=== PATIENT | female | born 1960 | race African-American/Black ===

== ENCOUNTER 2016-06-21 09:57 | Emergency (ER) | payer OTHER ==
[~2016-06-21] VITALS: Ht 167.6 cm; Wt 70.9 kg
[~2016-06-21 09:57] MED LIST: ASPCH81X PO; DIVA125T18 PO; MULT-506 PO; OLAN-111 PO; ZNTT/150 PO
[2016-06-21 10:05] VITALS: BP 149/93; PULSE 84; TEMP 36.6; O2SAT 97; Ht 167.6 cm; Wt 70.9 kg
[2016-06-21] MEDS ORDERED: NORCO 5/325MG HOME PACK PO ONE (10:30)
[2016-06-21] MEDS ORDERED: HYDR-5688 PO (10:38)
[2016-06-21] MEDS ORDERED: VALA1TAB31 PO (10:38)
[2016-06-21] MEDS ORDERED: PRED20TA PO (10:38)
--- NOTE | 2016-06-21 10:51 | EMERGENCY ROOM VISIT NOTE ---
History Report prepared by Maggie: Sidney Cavazos Under the Supervision of: Dr. Cole Martinez M.D. First contact with patient: 10:21 Chief Complaint: OTHER COMPLAINT Stated Complaint: SHOULDER,NECK, BACK PAIN History of Present Illness The patient is a 56 year old female who presents to the Emergency Room with complaints of constant right shoulder blade pain beginning four days prior to arrival. She currently rates her discomfort as a 9/10 in severity. The patient associates intermittent nausea, right sided neck pain, and a rash on her right shoulder and right side of neck with today's symptoms. The patient states she noticed the discomfort, when she woke up a few days ago. She notes she is concerned for shingles. The patient states she recently developed a cold. She notes she was on a heavy course of Augmentin and Penicillin a few weeks ago for her throat. The patient denies experiencing shingles in the past. She notes she tried using heat and ice without relief. The patient does not have any other concerns at this time. 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 A total of 10 systems reviewed and were otherwise negative. Past Medical & Surgical Medical Problems: (1) Anxiety (2) Bronchitis (3) Cellulitis (4) Cellulitis (5) Chest pain (6) GERD (gastroesophageal reflux disease) (7) Migraines (8) Paranoia (9) Pneumonia (10) Rash (11) Rash Family History No pertinent family history Social History Smoking Status: Never Smoker Alcohol Use: none Drug Use: none Marital Status: single Housing Status: lives alone Occupation Status: unemployed Current/Historical Medications Scheduled Aspirin (Aspirin Chewable), 81 MG PO DAILY Divalproex Sodium (Depakote), 125 MG PO DAILY Multivitamin (Multivitamin), 1 TAB PO DAILY Olanzapine (Zyprexa), 5 MG PO DAILY Prednisone (Prednisone), 2 TAB PO DAILY Ranitidine (Zantac), 150 MG PO DAILY Valacyclovir Hcl (Valtrex), 1 TAB PO TID Scheduled PRN Hydrocodone/Acetaminophen 5MG/325MG (Plain 5MG/325MG), 1-2 TABLET PO Q4H PRN for Pain Allergies Coded Allergies: Latex1 -Allergic Contact Dermititis (Verified Allergy, Mild, 05/22/16) Oxycodone (Verified Allergy, Mild, RASH, 05/22/16) Physical Exam Vital Signs Date Time Temp Pulse Resp B/P Pulse Ox O2 Delivery O2 Flow Rate FiO2 06/21/16 10:05 36.6 84 16 149/93 97 Room Air Physical Exam GENERAL: Patient is in no acute distress. HEENT: No acute trauma, normocephalic atraumatic, mucous membranes moist, no nasal congestion, no scleral icterus. NECK: No stridor, no adenopathy, no meningismus, trachea is midline. LUNGS: Clear to auscultation bilaterally, no wheeze, no rhonchi, breath sounds equal. HEART: Without murmurs gallops or rubs, regular rate and rhythm. ABDOMEN: Soft, nontender, bowel sounds positive, no hernias, no peritonitis. EXTREMITIES: No cyanosis or edema, full range of motion of all the joints without pain or difficulty, no signs for acute trauma. NEUROLOGIC: Oriented x 3, no acute motor or sensory deficits, no focal weakness. SKIN: Patient has a faint, slightly reddened, somewhat patchy vesicular appearing rash to the right scapular area, consistent with herpes zoster. Medical Decision & Procedures Medications Administered Medications (Trade) Dose Ordered Sig/Theron Route Start Time Stop Time Status Last Admin Dose Admin Valacyclovir HCl (Valtrex Tab) 1,000 mg NOW ONCE PO 06/21/16 10:30 06/21/16 10:32 DC 06/21/16 10:37 1,000 MG Prednisone (PredniSONE TAB) 40 mg NOW STAT PO 06/21/16 10:29 06/21/16 10:32 DC 06/21/16 10:38 40 MG Acetaminophen/ Hydrocodone Bitart (Plain 5/325mg Home Pack) 1 homepack UD ONCE PO 06/21/16 10:30 06/21/16 10:32 DC 06/21/16 10:37 1 HOMEPACK ED Course 1024: The patient was evaluated in room B2. A complete history and physical exam was performed. 1029: Ordered Prednisone 40 mg PO. 1030: Ordered Acetaminophen/ Hydrocodone Bitart 1 homepack PO, Valtrex Tab 1, 000 mg PO. 1040: Reevaluated the patient. Discussed results and discharge instructions: She verbalized understanding and agreement. The patient is ready for discharge. Medical Decision The differential diagnoses include but are not limited to: nerve impingement, heres zoster, disc disease, muscle spasm, cellulitis. The patient presents with right scapular pain. On exam, there is a herpes zoster rash noted in the area where she has discomfort. No cellulitis. Her lungs are clear, she was not toxic or febrile. The patient received oral prednisone and oral Valtrex. She is being discharged on these meds plus Plain for pain. She was encouraged to follow with her doctors office. [place] Drug Monitoring Program Search Results: patient reviewed within database, no issues identified Impression Primary Impression: Herpes zoster Scribe Attestation The scribe's documentation has been prepared under my direction and personally reviewed by me in its entirety. I confirm that the note above accurately reflects all work, treatment, procedures, and medical decision making performed by me. Departure Information Dispostion Home / Self-Care Prescriptions Prednisone (Prednisone) 20 Mg Tab 2 TAB PO DAILY for 5 Days, #10 TAB Prov: Cole Martinez M.D. 06/21/16 Hydrocodone/Acetaminophen 5MG/325MG (Plain 5MG/325MG) Tab 1-2 TABLET PO Q4H Y for Pain, #15 TAB Prov: Cole Martinez M.D. 06/21/16 Valacyclovir Hcl (VALTREX) 1 Gm Tab 1 TAB PO TID for 7 Days, #21 TAB Prov: Cole Martinez M.D. 06/21/16 Referrals Sumit Karimi M.D. (PCP) Forms HOME CARE DOCUMENTATION FORM, IMPORTANT VISIT INFORMATION Patient Instructions My [facility] [employer] Keyboards, Shingles Herpes Zoster Additional Instructions valtrex 3x per day for 1 week norco 1-2 tab every 4 hours for severe pain prednisone as directed follow with siena sung return if worsening
== END 2016-06-21 10:30 | disposition home or self-care (01) ==
LOC: C.EDB 09:59
DX: B02.9 Zoster without complications (principal); K21.9 Gastro-esophageal reflux disease without esophagitis; Z79.82 Long term (current) use of aspirin

== ENCOUNTER → 2016-06-23 | Outpatient (CLI) | payer OTHER ==
[~2016-06-23] MED LIST changes: +ASPI81TA28 PO; +ATOR-24 PO; +AZITTAB PO; +BENZ100C84 PO; +CYAN100020 PO; +FEXO1TAB45 PO; +FLUT0.15 NAE; +HYDR-5688 PO; +IBUP-1050 PO; +MICO2CRE61 TOP; +NXM/40 PO; +PRED20TA PO; +RIZA10TA18 PO; +TRMCR130WC TOP; +VALA1TAB31 PO; +VNTHFA/IN INH
--- NOTE | 2016-06-23 14:12 | DIAGNOSTIC IMAGING REPORT ---
CHEST 2 VIEWS ROUTINE CLINICAL HISTORY: Acute bronchospasm. COMPARISON STUDY: Chest radiograph May 22, 2016. FINDINGS: Lung volumes are normal. No pneumothorax or pleural effusion is present. Linear left lower lung opacity is suggestive of atelectasis. There is no consolidation. Cardiomediastinal silhouette is stable. There is no evidence of pulmonary edema. IMPRESSION: No acute cardiopulmonary findings. No change in appearance of the chest. Electronically signed by: Db Lopez M.D. 06/23/2016 2:10 PM Dictated Date/Time: 06/23/2016 2:10 PM
== END | disposition home or self-care (01) ==
LOC: C.RADBC 13:07
PROVIDERS: ATTEND Internal Medicine
DX: J98.01 Acute bronchospasm (principal)

== ENCOUNTER → 2016-07-02 | Outpatient (CLI) | payer OTHER ==
[~2016-07-02] MED LIST changes: +OPTIRAY 320 IV PRN; -PRED20TA PO; -VALA1TAB31 PO
--- NOTE | 2016-07-02 14:29 | DIAGNOSTIC IMAGING REPORT ---
CT SCAN OF THE CHEST WITH IV CONTRAST CLINICAL HISTORY: Cough. COMPARISON STUDY: Chest x-ray dated 06/23/2016. Chest CT scans dated 03/28/2015 and 06/21/2014. TECHNIQUE: Following the IV administration of 92 cc of Optiray 320, CT scan of the thorax was performed from the thoracic inlet to the upper abdomen. Images are reviewed in the axial, sagittal, and coronal planes. IV contrast was administered without complication. CT DOSE: 299.15 mGycm FINDINGS: Thyroid: Imaged portions of the thyroid gland are normal in size and attenuation. Thoracic aorta: There is mild atherosclerotic calcification of the thoracic aorta, which is normal in caliber and demonstrates standard 3-vessel arch anatomy. No dissection is seen. Pulmonary vasculature: The pulmonary trunk is normal in caliber. There are no filling defects identified in the central pulmonary vessels to indicate pulmonary embolus. Note that this examination was not protocoled for evaluation of the pulmonary arteries. Heart: The heart is normal in size and configuration, and without pericardial effusion. Lungs and pleural spaces: Mild emphysematous change is suspected. The trachea and central airways are clear. No airspace consolidation or pleural effusion is identified. Mild scarring is seen in the right middle lobe and lingula. A calcification containing nodule in the right lower lobe seen on axial image #190 and a 3 mm left lower lobe pulmonary nodule on image #224 are unchanged from 06/21/2014 and of doubtful significance. There is minimal mucous plugging versus secretions within the dependent lower lobe airways. Mild diffuse peribronchial thickening is observed. Mediastinum: There is no mediastinal lymphadenopathy. Sol: Clear. Axillae: There is no axillary lymphadenopathy. Upper abdomen: Partially visualized upper abdominal viscera is within normal limits. Skeletal structures: The skeletal structures are osteopenic. No lytic or blastic bony lesions are seen. IMPRESSION: 1. Suspect mild emphysema. 2. No lobar consolidation or pleural effusion is identified. 3. There is mild diffuse peribronchial thickening as well as secretions/mucous plugging present within the dependent lower lobe airways. Correlate clinically for evidence of reactive airway disease. 4. There is no mediastinal or hilar lymphadenopathy. 5. Additional findings as above. Electronically signed by: Cole Samuels M.D. 07/02/2016 2:28 PM Dictated Date/Time: 07/02/2016 2:21 PM
== END | disposition home or self-care (01) ==
LOC: C.CTS 13:47
PROVIDERS: ATTEND Internal Medicine
DX: R05 Cough (principal)

== ENCOUNTER → 2016-07-28 | Outpatient (CLI) | payer OTHER ==
[~2016-07-28] MED LIST changes: -OPTIRAY 320 IV PRN
--- NOTE | 2016-07-29 07:40 | DIAGNOSTIC IMAGING REPORT ---
HEAD CT NONCONTRAST CT DOSE: 537.48 mGy.cm HISTORY: Mental status change. Dizziness. [id number] Syncope TECHNIQUE: Multiaxial CT images of the head were performed without the use of intravenous contrast. Comparison: 10/18/2014 Findings: The paranasal sinuses and mastoid air cells are clear. The calvarium and skull base are intact. The ventricles and sulci are within normal limits. There is no mass, hematoma, midline shift, or acute infarct. Impression: No acute intracranial abnormality. Electronically signed by: Jose Rebollar M.D. 07/28/2016 11:05 AM Dictated Date/Time: 07/28/2016 11:04 AM
== END | disposition home or self-care (01) ==
LOC: C.CTS 10:46
PROVIDERS: ATTEND Nurse Practitioner Adult Health
DX: R55 Syncope and collapse (principal); R42 Dizziness and giddiness

== ENCOUNTER → 2016-08-04 | Outpatient (CLI) | payer OTHER ==
--- NOTE | 2016-08-04 16:46 | ECHOCARDIOGRAM REPORT ---
*NOTICE TO RECEIVING [employer] This information is strictly Confidential and protected under [place] law. [place] law prohibits you from making any further disclosure of this information unless further disclosure is expressly permitted by the written consent of the person to whom it pertains or is authorized by law. A general authorization for the release of medical or other information is not sufficient for this purpose. Hospital accepts no responsibility if the information is made available to any other person, INCLUDING THE PATIENT. Interpretation Summary * Name: FREDA BANKS Study Date: 08/04/2016 01:00 PM BP: 149/93 mmHg * Patient Location: [facility] HR: 76 * : 1960 (M/d/yyyy) Gender: Female Height: 66 in * Age: 56 yrs Ethnicity: AA Weight: 155 lb * Ordering Physician: Rosie Skaggs * Referring Physician: Rosie Skaggs * Performed By: Taylor Roland RCS * * Reason For Study: ABNORMAL EKG * BSA: 1.8 m2 * -- Conclusions -- * The left ventricle is normal in size. * There is normal left ventricular wall thickness. * Left ventricular systolic function is normal. * Ejection Fraction = 50-55%. * The left ventricular wall motion is normal. * No significant valvular disease. Procedure Details * A complete two-dimensional transthoracic echocardiogram was performed (2D, M-mode, Doppler and color flow Doppler). Left Ventricle * The left ventricle is normal in size. * There is normal left ventricular wall thickness. * Left ventricular systolic function is normal. * Ejection Fraction = 50-55%. * The left ventricular wall motion is normal. Right Ventricle * The right ventricle is normal in size and function. * There is normal right ventricular wall thickness. * The right ventricular systolic function is normal. Atria * The left atrial size is normal. * Right atrial size is normal. * The interatrial septum is intact with no evidence for an atrial septal defect. Mitral Valve * The mitral valve is normal in structure and function. * There is no mitral valve stenosis. * There is no mitral regurgitation noted. Tricuspid Valve * The tricuspid valve is normal in structure and function. * There is trace tricuspid regurgitation. * Right ventricular systolic pressure is normal. Aortic Valve * The aortic valve is normal in structure and function. * No aortic regurgitation is present. Pulmonic Valve * The pulmonic valve is normal in structure and function. * There is no pulmonic valvular regurgitation. Great Vessels * The aortic root is normal size. * No obvious dissection could be visualized. * The pulmonary artery is normal size. Pericardium/Pleural * There is no pericardial effusion. MMode 2D Measurements and Calculations IVSd 0.86 cm IVSs 1.5 cm LVIDd 4.2 cm LVIDs 3.2 cm LVPWd 0.99 cm LVPWs 1.1 cm IVS/LVPW 0.87 FS 25.1 % EDV(Teich) 79.0 ml ESV(Teich) 39.5 ml EF(Teich) 50.0 % EDV(cubed) 74.5 ml ESV(cubed) 31.3 ml EF(cubed) 58.0 % % IVS thick 70.3 % % LVPW thick 12.2 % LV mass(C)d 123.6 grams LV mass(C)dI 68.9 grams/m\S\2 LV mass(C)s 130.8 grams LV mass(C)sI 72.9 grams/m\S\2 SV(Teich) 39.5 ml SI(Teich) 22.0 ml/m\S\2 SV(cubed) 43.2 ml SI(cubed) 24.1 ml/m\S\2 Ao root diam 3.5 cm Ao root area 9.8 cm\S\2 ACS 1.8 cm LA dimension 2.9 cm LA/Ao 0.82 LVOT diam 2.0 cm LVOT area 3.0 cm\S\2 LVAd ap4 26.7 cm\S\2 LVLd ap4 7.2 cm EDV(MOD-sp4) 81.1 ml EDV(sp4-el) 83.5 ml LVAs ap4 15.0 cm\S\2 LVLs ap4 5.7 cm ESV(MOD-sp4) 33.1 ml ESV(sp4-el) 33.4 ml EF(MOD-sp4) 59.2 % EF(sp4-el) 60.0 % LVAd ap2 20.9 cm\S\2 LVLd ap2 7.2 cm EDV(MOD-sp2) 49.1 ml EDV(sp2-el) 51.2 ml LVAs ap2 12.2 cm\S\2 LVLs ap2 6.1 cm ESV(MOD-sp2) 20.4 ml ESV(sp2-el) 20.8 ml EF(MOD-sp2) 58.4 % EF(sp2-el) 59.4 % LVLd %diff -0.20 % EDV(MOD-bp) 63.1 ml LVLs %diff 6.5 % ESV(MOD-bp) 26.7 ml EF(MOD-bp) 57.7 % SV(MOD-sp4) 48.0 ml SI(MOD-sp4) 26.7 ml/m\S\2 SV(MOD-sp2) 28.6 ml SI(MOD-sp2) 16.0 ml/m\S\2 SV(MOD-bp) 36.4 ml SI(MOD-bp) 20.3 ml/m\S\2 SV(sp4-el) 50.1 ml SI(sp4-el) 27.9 ml/m\S\2 SV(sp2-el) 30.4 ml SI(sp2-el) 16.9 ml/m\S\2 Doppler Measurements and Calculations MV E max delmer 75.0 cm/sec MV A max delmer 52.8 cm/sec MV E/A 1.4 MV P1/2t max delmer 88.9 cm/sec MV P1/2t 70.5 msec MVA(P1/2t) 3.1 cm\S\2 MV dec slope 369.1 cm/sec\S\2 MV dec time 0.24 sec Ao V2 max 111.3 cm/sec Ao max PG 5.0 mmHg Ao max PG (full) 2.5 mmHg JOSE(V,A) 2.1 cm\S\2 JOSE(V,D) 2.1 cm\S\2 LV V1 max PG 2.4 mmHg LV V1 max 77.6 cm/sec PA V2 max 84.7 cm/sec PA max PG 2.9 mmHg TR max delmer 222.5 cm/sec
== END | disposition home or self-care (01) ==
LOC: C.CPL 11:43
PROVIDERS: ATTEND Internal Medicine
DX: R00.2 Palpitations (principal)

== ENCOUNTER → 2016-08-07 | Outpatient (CLI) | payer OTHER ==
--- NOTE | 2016-08-10 13:46 | MAMMOGRAPHY REPORT ---
BILATERAL DIGITAL DIAGNOSTIC MAMMOGRAM TOMOSYNTHESIS WITH CAD AND TARGETED LEFT ULTRASOUND: 08/07/2016 CLINICAL HISTORY: The patient reports an area of thickening and pain in the left breast for 2 weeks, which has somewhat improved. TECHNIQUE: Breast tomosynthesis in addition to standard 2D mammography was performed. Current study was also evaluated with a Computer Aided Detection (CAD) system. Bilateral CC and MLO 2-D and bouchra synthesis images were obtained. COMPARISON: Comparison is made to exams dated: 09/16/2015 ultrasound, 09/16/2015 mammogram, 02/05/2010 mammogram, and 03/31/2005 mammogram - [facility]. BREAST COMPOSITION: The tissue of both breasts is heterogeneously dense, which may obscure small ma sses. FINDINGS: A triangle marker benítez the site of the thickening/pain in the left breast at 9:00. No s uspicious masses or other suspicious mammographic abnormalities are noted in the region. The remain caryn of both breasts are stable compared to prior exams, without suspicious masses, calcifications, o r areas of architectural distortion noted. Targeted ultrasound was performed of the area of thickening and pain pointed out by the patient, in the left 9:00 region, centered around 6 cm from the nipple. Sonographically normal tissue is seen i n this region, without evidence of a mass or other suspicious sonographic abnormalities. IMPRESSION: ACR BI-RADS CATEGORY 1: NEGATIVE, TARGETED ULTRASOUND ACR BI-RADS CATEGORY 1: NEGATIVE No suspicious mammographic or sonographic abnormality at the site of left medial breast thickening/p ain pointed out by the patient. There is no mammographic or targeted sonographic evidence of malign jose carlos. Recommend clinical follow-up, and recommend routine bilateral screening mammograms in one yea r. The patient has been verbally notified of the results. Approximately 10% of breast cancers are not detected with mammography. A negative mammographic repor t should not delay biopsy if a clinically suggestive mass is present. Lashonda Lo M.D. /:08/07/2016 10:28:21 Business Process Specialist: Daniela PRABHAKAR(R)(M), [facility] letter sent: Normal 1/2 BI-RADS Code: ACR BI-RADS Category 1: Negative Ultrasound BI-RADS: ACR BI-RADS Category 1: Negative
== END | disposition home or self-care (01) ==
LOC: C.MAMM 09:55
PROVIDERS: ATTEND Internal Medicine
DX: N63 Unspecified lump in breast (principal)

== ENCOUNTER → 2016-08-20 | Outpatient (CLI) | payer OTHER ==
[2016-08-20 16:32] LABS: BASO % 0.9 %; BASO ABS # 0.06 K/uL (0-0.2); COMPLETE YES; EOS % 4.2 %; HEMATOCRIT 42.4 % (37-47); IG% 0.1 %; LYMPH ABS # 2.89 K/uL (1.2-3.4); MEAN CELL VOLUME 84.1 fL (80-100); MEAN CORPUSCULAR HEMOGLOBIN 28.2 pg (25-34); MEAN CORPUSCULAR HGB CONC 33.5 g/dl (32-36); MEAN PLATELET VOLUME 10.8 fL (7.4-10.4); NEUT % 43.8 %; PLATELET COUNT 268 K/uL (130-400); RED BLOOD COUNT 5.04 M/uL (4.2-5.4); WHITE BLOOD COUNT 6.72 K/uL (4.8-10.8)
[2016-08-20 16:56] LABS: AST/SGOT 22 U/L (15-37); BLOOD UREA NITROGEN 16 mg/dl (7-18); BUN/CREATININE RATIO 14.6 (10-20); CALCIUM 9.3 mg/dl (8.5-10.1); CARBON DIOXIDE 29 mmol/L (21-32); CHLORIDE 106 mmol/L (98-107); GLUCOSE 86 mg/dl (70-99); POTASSIUM 3.8 mmol/L (3.5-5.1); SODIUM 141 mmol/L (136-145)
[2016-08-20 16:59] LABS: ALB/GLOB RATIO 1.2 (0.9-2); ALKALINE PHOSPHATASE 55 U/L (45-117); ALT/SGPT 28 U/L (12-78)
[2016-08-24 11:26] LABS: CHLAMYDIA TRACH RNA*** NOT DETECTED (NOT DETECTED); GC (NEIS GONORRHOEAE)RNA** NOT DETECTED (NOT DETECTED); HSV TYPE 1 DNA Not Detected (Not Detected); HSV TYPE 1&2 DNA SOURCE Serum; HSV TYPE 2 DNA Not Detected (Not Detected)
== END | disposition home or self-care (01) ==
LOC: C.LAB1850 15:25
PROVIDERS: ATTEND Internal Medicine
DX: Z20.2 Contact with and (suspected) exposure to infections with a predominantly sexual mode of transmission (principal); R42 Dizziness and giddiness; R55 Syncope and collapse

== ENCOUNTER 2016-09-08 18:29 | Emergency (ER) | payer OTHER ==
[~2016-09-08] VITALS: Ht 167.6 cm; Wt 71.9 kg
[~2016-09-08 18:29] MED LIST changes: -ASPI81TA28 PO; -ATOR-24 PO; -AZITTAB PO; -BENZ100C84 PO; -CYAN100020 PO; -FEXO1TAB45 PO; -FLUT0.15 NAE; -IBUP-1050 PO; -MICO2CRE61 TOP; -NXM/40 PO; -RIZA10TA18 PO; -TRMCR130WC TOP; -VNTHFA/IN INH
[2016-09-08 18:31] VITALS: TEMP 37.5; Ht 167.6 cm; Wt 71.9 kg
[2016-09-08] MEDS ORDERED: IBUP-1050 PO (19:10)
[2016-09-08] MEDS ORDERED: ATOR-24 PO (19:10)
--- NOTE | 2016-09-08 19:29 | DIAGNOSTIC IMAGING REPORT ---
CERVICAL SPINE 5 VIEWS HISTORY: Trauma fall, neck pain COMPARISON: None. FINDINGS: The cervical spine is visualized from C1 through the superior endplate of T1. There is no fracture. No subluxation. Moderate degenerative disc change from C5 through C7. No acute compression deformity. Prevertebral soft tissues and the atlantodens interval are intact. IMPRESSION: No fracture or subluxation within the cervical spine. Moderate degenerative change Electronically signed by: Jose Rebollar M.D. 09/08/2016 7:28 PM Dictated Date/Time: 09/08/2016 7:27 PM
--- NOTE | 2016-09-08 19:50 | EMERGENCY ROOM VISIT NOTE ---
ED Visit Note First contact with patient: 18:47 CHIEF COMPLAINT: Neck pain, fall HISTORY OF PRESENT ILLNESS: This 56-year-old female patient presents to the emergency department ambulatory for evaluation after a fall. The patient states that she tripped and fell down 3 stairs. She states that she hit the right side of her face off of the banister. She also reports pain in the right side of the neck, the right elbow and the left lower leg. She denies any loss of consciousness. She denies headache, nausea, dizziness, blurred vision or slurred speech. She rates her current discomfort a 5/10. She has not taken any medication for pain. She denies any radiation of the neck pain into either arm. She denies any numbness or tingling. She denies any chest or abdominal pain. REVIEW OF SYSTEMS: A 6 system review of systems was completed with positives and pertinent negatives listed in the HPI. ALLERGIES: Latex, oxycodone MEDICATIONS: See med list PMH: No significant past medical history. SOCIAL HISTORY: Patient lives locally with family. Nonsmoker. PHYSICAL EXAM: VITALS: Vitals are noted on the nurse's note and reviewed by myself. Vital signs stable. GENERAL: This is a 56-year-old female, in no acute distress, nondiaphoretic, well-developed well-nourished. SKIN: Capillary reflex less than 2 seconds. HEENT: Normocephalic. PERRLA. EOMI. Nares patent. Mucous membranes moist. Neck is supple without nuchal rigidity. Cervical spine is not tender to palpation. The patient has tenderness of the right cervical paraspinal muscles. Full range of motion of the neck. MUSCULOSKELETAL: There is mild tenderness of the right olecranon process. Full range of motion of the right elbow, shoulder and wrist. There is a small amount of bruising and tenderness of the left anterior lower leg. Full range of motion of bilateral upper and lower extremities. Strength 5/5 throughout. NEURO: Patient was alert and oriented to person place and time. Normal sensation to light and sharp touch. No focal neurologic deficits. RADIOGRAPHIC FINDINGS: CERVICAL SPINE 5 VIEWS HISTORY: Trauma fall, neck pain COMPARISON: None. FINDINGS: The cervical spine is visualized from C1 through the superior endplate of T1. There is no fracture. No subluxation. Moderate degenerative disc change from C5 through C7. No acute compression deformity. Prevertebral soft tissues and the atlantodens interval are intact. IMPRESSION: No fracture or subluxation within the cervical spine. Moderate degenerative change EMERGENCY DEPARTMENT COURSE: I examined the patient. There is no bony tenderness over the cervical spine. Patient has contusions of the right elbow and left lower leg. The patient initially refused any imaging, then was agreeable to imaging of her cervical spine. She did refuse imaging of the right elbow and left lower leg, as she did not feel that these injuries were significant. Patient was given ice packs for her comfort. C-spine x-rays were read by radiology and were negative for any acute findings. Conservative measures were discussed with the patient. She was instructed to continue ibuprofen at home. She will follow-up with her primary care provider as needed. She verbalized understanding of my assessment and treatment plan and was discharged home in good condition. DIAGNOSIS: Neck pain, fall Problem List Medical Problems: (1) Anxiety Status: Chronic (2) Bronchitis Status: Resolved (3) Cellulitis Status: Resolved (4) Cellulitis Status: Resolved (5) Chest pain Status: Resolved (6) GERD (gastroesophageal reflux disease) Status: Chronic (7) Migraines Status: Chronic (8) Paranoia Status: Chronic (9) Pneumonia Status: Resolved (10) Rash Status: Resolved (11) Rash Status: Resolved Current/Historical Medications Scheduled Aspirin (Aspirin Chewable), 81 MG PO DAILY Atorvastatin (Lipitor), 40 MG PO DAILY Divalproex Sodium (Depakote), 125 MG PO DAILY Ibuprofen (Advil), 200-600 MG PO Q4H Multivitamin (Multivitamin), 1 TAB PO DAILY Olanzapine (Zyprexa), 5 MG PO DAILY Ranitidine (Zantac), 150 MG PO DAILY Allergies Coded Allergies: Latex1 -Allergic Contact Dermititis (Verified Allergy, Mild, 09/08/16) Oxycodone (Verified Allergy, Mild, RASH, 09/08/16) Vital Signs Date Time Temp Pulse Resp B/P Pulse Ox O2 Delivery O2 Flow Rate FiO2 09/08/16 19:53 98 18 105/77 99 09/08/16 18:31 37.5 106 18 129/76 96 Room Air Departure Information Impression Primary Impression: Fall Additional Impression: Contusion of multiple sites Dispostion Home / Self-Care Condition GOOD Referrals No Doctor, Assigned (PCP) Patient Instructions My [facility] Additional Instructions For pain control, you can use the following [id number] medicines (if >12 yo): - Regular strength (325mg/tab) Tylenol (acetaminophen) 2 tabs every 4-6 hours as needed. Do not exceed 12 tablets in a 24 hour period. Avoid taking more than 4 grams (4000 mg) of Tylenol per day. This includes any other sources of acetaminophen you may take on a regular basis. - Regular strength (200 mg/tab) Advil (ibuprofen) 1-2 tabs every 4-6 hours as needed. Do not exceed a dose of 3200 mg per day. Apply ice to areas of pain. Return to the emergency department with worsening pain, numbness, weakness or any other new/concerning symptoms. Problem Qualifiers Primary Impression: Fall Encounter type: initial encounter Qualified Codes: W19.XXXA - Unspecified fall, initial encounter
[2016-09-08 19:53] VITALS: BP 105/77; PULSE 98; O2SAT 99
== END 2016-09-08 19:54 | disposition home or self-care (01) ==
LOC: C.EDB 18:30 → C.EDD 19:54
DX: T14.8 Other injury of unspecified body region (principal); W10.9XXA Fall (on) (from) unspecified stairs and steps, initial encounter; M54.2 Cervicalgia; F41.9 Anxiety disorder, unspecified; K21.9 Gastro-esophageal reflux disease without esophagitis; F22 Delusional disorders; Z87.01 Personal history of pneumonia (recurrent); Z79.82 Long term (current) use of aspirin; Z79.899 Other long term (current) drug therapy

== ENCOUNTER 2016-09-09 17:49 | Emergency (ER) | payer OTHER ==
[~2016-09-09] VITALS: Ht 168.9 cm; Wt 71.6 kg
[~2016-09-09 17:49] MED LIST changes: +ATOR-24 PO; -HYDR-5688 PO; +IBUP-1050 PO
[2016-09-09 17:58] VITALS: PULSE 97; TEMP 37; O2SAT 95; Ht 168.9 cm; Wt 71.6 kg
--- NOTE | 2016-09-09 19:55 | DIAGNOSTIC IMAGING REPORT ---
LEFT SHOULDER MIN 2 VIEWS ROUTINE CLINICAL HISTORY: Left shoulder pain s/p fall COMPARISON: Left shoulder radiographs August 20, 2009. FINDINGS: Alignment of the left shoulder is anatomic. There is no acute fracture. Mild arthritis of the left acromioclavicular joint is present. IMPRESSION: No acute fracture or dislocation of the left shoulder. Electronically signed by: Db Lopez M.D. 09/09/2016 7:53 PM Dictated Date/Time: 09/09/2016 7:52 PM
--- NOTE | 2016-09-09 19:56 | DIAGNOSTIC IMAGING REPORT ---
CHEST ONE VIEW PORTABLE CLINICAL HISTORY: Left clavicle pain COMPARISON STUDY: Chest CT July 02, 2016. FINDINGS: No clavicular fracture is identified on AP exam. Linear left lower lung opacity favors atelectasis. There is no consolidation. Cardiac size is normal. There is no pneumothorax or pleural effusion. IMPRESSION: No acute cardiopulmonary findings. Electronically signed by: Db Lopez M.D. 09/09/2016 7:55 PM Dictated Date/Time: 09/09/2016 7:54 PM
--- NOTE | 2016-09-09 19:57 | DIAGNOSTIC IMAGING REPORT ---
RIGHT ELBOW MIN 3 VIEWS ROUTINE CLINICAL HISTORY: Right elbow pain following fall. COMPARISON: None FINDINGS: Alignment of the right elbow is anatomic. There is no acute fracture or joint effusion. Mild soft tissue swelling overlying the olecranon is noted. IMPRESSION: 1. No acute fracture or joint effusion of the right elbow. 2. Mild soft tissue swelling overlying the olecranon. Electronically signed by: Db Lopez M.D. 09/09/2016 7:56 PM Dictated Date/Time: 09/09/2016 7:55 PM
--- NOTE | 2016-09-09 19:58 | DIAGNOSTIC IMAGING REPORT ---
PELVIS/BILATERAL HIP 2 VIEWS CLINICAL HISTORY: Hip pain s/p fall COMPARISON STUDY: Hip radiographs January 15, 2014. FINDINGS: The sacroiliac joints and symphysis pubis are intact. There is no acute fracture within the pelvis or the hips. There is mild arthritis of the hips. IMPRESSION: No acute fracture within the pelvis or hips. Electronically signed by: Db Lopez M.D. 09/09/2016 7:57 PM Dictated Date/Time: 09/09/2016 7:56 PM
--- NOTE | 2016-09-09 19:59 | DIAGNOSTIC IMAGING REPORT ---
LEFT TIBIA/FIBULA 2 VIEWS ROUTINE CLINICAL HISTORY: Left tibia and fibula pain following fall. COMPARISON: Left knee radiograph October 24, 2014. FINDINGS: No acute fracture of the left tibia or fibula is identified. Alignment of the left knee and ankle appears anatomic. IMPRESSION: No acute fracture of the left tibia or fibula. Electronically signed by: Db Lopez M.D. 09/09/2016 7:58 PM Dictated Date/Time: 09/09/2016 7:57 PM
--- NOTE | 2016-09-09 20:33 | EMERGENCY ROOM VISIT NOTE ---
History First contact with patient: 18:14 Chief Complaint: ELBOW PAIN/INJURY Stated Complaint: PAIN SWELLING AND TINGLING IN ELBOW History of Present Illness The patient is a 56 year old female who presents to the Emergency Room via private vehicle with complaints of "pain swelling and tingling in elbow". The patient states that she was seen and evaluated here yesterday for a fall that she had sustained. She states that when she woke up today she felt some stiffness in the neck, pointing to the left superior trapezius region and was concerned. She also states that the right elbow is now swollen. She states that yesterday she fell on the steps, and when she grabbed upon the handrail she fell forward striking her head off of the wall. There was not loss of consciousness. She notes that at this time she is experiencing pain in the left superior trapezius region, left shoulder/clavicle region, right elbow, bilateral hips, left anterior dunn. She denies any chest pain, shortness of breath, fevers, chills, abdominal pain. The patient proceeds to state that people are so mean, and the females in triage treat her with disrespect. She states that her life is in danger, and points to a bruise on her right medial arm, stating that she believes someone is breaking into her house in the night and harming her. She also states that "something caused me to take Advil". She also believes that people are poisoning her food. She states that she lives in an apartment building where people are very mean to her. She feels that people are racist. Review of Systems A complete 10-point Review of Systems was discussed with the patient, with pertinent positives and negatives listed in the History of Present Illness. All remaining Review of Systems questions can be considered negative unless otherwise specified. Past Medical/Surgical History Medical Problems: (1) Anxiety (2) Bronchitis (3) Cellulitis (4) Cellulitis (5) Chest pain (6) GERD (gastroesophageal reflux disease) (7) Migraines (8) Paranoia (9) Pneumonia (10) Rash (11) Rash Family History No pertinent family history Social History Smoking Status: Current Every Day Smoker Alcohol Use: none Drug Use: none Marital Status: single Housing Status: lives alone Occupation Status: unemployed Current/Historical Medications Scheduled Aspirin (Aspirin Chewable), 81 MG PO DAILY Atorvastatin (Lipitor), 40 MG PO DAILY Divalproex Sodium (Depakote), 125 MG PO DAILY Ibuprofen (Advil), 200-600 MG PO Q4H Multivitamin (Multivitamin), 1 TAB PO DAILY Olanzapine (Zyprexa), 5 MG PO DAILY Ranitidine (Zantac), 150 MG PO DAILY Allergies Coded Allergies: Latex1 -Allergic Contact Dermititis (Verified Allergy, Mild, 09/08/16) Oxycodone (Verified Allergy, Mild, RASH, 09/08/16) Physical Exam Vital Signs Date Time Temp Pulse Resp B/P Pulse Ox O2 Delivery O2 Flow Rate FiO2 09/09/16 17:58 37.0 97 20 95 Room Air Physical Exam VITAL SIGNS - Vital signs and nursing notes were reviewed. Patient is afebrile , non-tachycardic and is saturating well on room air 95%. GENERAL -56-year-old female appearing her stated age who is in no acute distress. Communicates well with provider and answers questions appropriately. SKIN - Without rashes. There is evidence of edema and erythema overlying the olecranon of the right upper extremity. There is also evidence of bruising of the left anterior dunn. Skin is intact. HEAD - NC/AT. EYES - PERRL with EOMI bilaterally. Sclera anicteric. Palpebral conjunctiva pink and moist with no injection noted. EARS - No deformities of external structures noted on gross examination bilaterally. No pain elicited with palpation of the tragus bilaterally. External auditory canals without discharge or otorrhea. Tympanic membranes pearly jesus without retraction or bulging. No fluid or purulent material visualized behind the TM. Handle of malleus, umbo, cone of light, pars tensa/ flaccid all easily visualized. NOSE - Midline and without cyanosis. No epistaxis or purulent drainage noted. Septum midline without deviation or septal hematoma noted. MOUTH/OROPHARYNX - Without perioral cyanosis. Buccal mucosa pink and moist and without leukoplakia. Tongue midline with equal elevation of palate bilaterally. No tonsillar hypertrophy, erythema, or exudates noted. Fair dentition noted. NECK - Neck with FROM. Supple to palpation. No lymphadenopathy noted. No nuchal rigidity. LUNGS - Chest wall symmetric without accessory muscle use, intercostals retractions, or central cyanosis. Normal vesicular breath sounds CTA B/L. No wheezes, rales, or rhonchi appreciated. CARDIAC - RRR with S1/S2. No murmur, rubs, or gallops appreciated. ABDOMEN - Abdominal contour without pulsations or visible masses. No evidence of trauma. EXTREMITIES - No clubbing or peripheral cyanosis. No pretibial edema present. +5 /5 strength noted in UE/LE bilaterally. Pt. is neurovascularly intact in the extremities. NEUROLOGIC - Cranial nerves II through XII grossly intact. Sensory intact to light touch throughout. PSYCH - Pt is very pleasant and interacts well with examiner. Medical Decision & Procedures ER Provider Diagnostic Interpretation: [~ rep ct add3]] LEFT SHOULDER MIN 2 VIEWS ROUTINE CLINICAL HISTORY: Left shoulder pain s/p fall COMPARISON: Left shoulder radiographs August 20, 2009. FINDINGS: Alignment of the left shoulder is anatomic. There is no acute fracture. Mild arthritis of the left acromioclavicular joint is present. IMPRESSION: No acute fracture or dislocation of the left shoulder. Electronically signed by: Db Lopez M.D. 09/09/2016 7:53 PM Dictated Date/Time: 09/09/2016 7:52 PM CHEST ONE VIEW PORTABLE CLINICAL HISTORY: Left clavicle pain COMPARISON STUDY: Chest CT July 02, 2016. FINDINGS: No clavicular fracture is identified on AP exam. Linear left lower lung opacity favors atelectasis. There is no consolidation. Cardiac size is normal. There is no pneumothorax or pleural effusion. IMPRESSION: No acute cardiopulmonary findings. Electronically signed by: Db Lopez M.D. 09/09/2016 7:55 PM Dictated Date/Time: 09/09/2016 7:54 PM RIGHT ELBOW MIN 3 VIEWS ROUTINE CLINICAL HISTORY: Right elbow pain following fall. COMPARISON: None FINDINGS: Alignment of the right elbow is anatomic. There is no acute fracture or joint effusion. Mild soft tissue swelling overlying the olecranon is noted. IMPRESSION: 1. No acute fracture or joint effusion of the right elbow. 2. Mild soft tissue swelling overlying the olecranon. Electronically signed by: Db Lopez M.D. 09/09/2016 7:56 PM Dictated Date/Time: 09/09/2016 7:55 PM PELVIS/BILATERAL HIP 2 VIEWS CLINICAL HISTORY: Hip pain s/p fall COMPARISON STUDY: Hip radiographs January 15, 2014. FINDINGS: The sacroiliac joints and symphysis pubis are intact. There is no acute fracture within the pelvis or the hips. There is mild arthritis of the hips. IMPRESSION: No acute fracture within the pelvis or hips. Electronically signed by: Db Lopez M.D. 09/09/2016 7:57 PM Dictated Date/Time: 09/09/2016 7:56 PM LEFT TIBIA/FIBULA 2 VIEWS ROUTINE CLINICAL HISTORY: Left tibia and fibula pain following fall. COMPARISON: Left knee radiograph October 24, 2014. FINDINGS: No acute fracture of the left tibia or fibula is identified. Alignment of the left knee and ankle appears anatomic. IMPRESSION: No acute fracture of the left tibia or fibula. Electronically signed by: Db Lopez M.D. 09/09/2016 7:58 PM Dictated Date/Time: 09/09/2016 7:57 PM Laboratory Results Medical Decision Patient was seen and evaluated as above. After obtaining a thorough history and physical examination radiographs were obtained of the affected regions. The patient was neurovascularly intact. No focal neurologic deficits. I was concerned as the patient began stating what appeared to be thoughts of paranoia. She stated that "something cause me to take Advil" and also stated that she believes someone is out to get her and harm her and that someone breaks in her apartment when she is sleeping and harms her The patient was initially evaluated in room D1, however nursing notes provide that the patient was initially assigned to D2 however did not seem happy with this and wanted to be farther away from the nurse's station. I discussed the case with my attending regarding whether or not a psychiatric evaluation should be performed based upon the elicited history. I felt that the patient would benefit from a mental health evaluation given that this is her second trip to the emergency department for the same fall, and there was no evidence of paranoia on previous visit. I do believe the patient would benefit from this at this time. Because the patient had noted that she had a poor experience in triage, and wanted to be far away from the nurse's station and I felt that a mental health evaluation would be appropriate and best performed in room A5 which would be more private and not close to the nurses station. She was moved to upon her return from x- ray. I went to reevaluate the patient and she noted that she was scared, as she was moved to a new room and because there was a electronic security technician in the room. I politely excuse the electronic security technician from the room, and reassured the patient that we are not trying to harm her anyway we are just trying to help her. I stated that she had initially wanted to be away from the nurse's station, and had a poor experience in triage therefore the room she was in what help ensure her privacy. I also order labs at that point because the patient has stated the something made her take Advil therefore I felt that laboratory work would be beneficial in this case to rule out any potential harm as well as to evaluate her paranoid thoughts. The patient had denied suicidal and homicidal ideations however every time I would talk with her she wanted the door to be completely shut. She then states that it's a breech of her privacy if the door is not shut. I certainly made sure that the door was shut during our conversation. The patient then stated that she would like to leave, and was on the phone with an individual. I informed her that I by no means and keeping her here against her will and she may leave at any point, but at this point I'm not able to provide her x-ray results as the radiologist has not read them yet. She then states she would not like blood work, which I do believe is fair as the patient does certainly have a right to declined this. The blood work was canceled. The x-rays were discussed the patient. I then had my attending also accompany me in discussion with the patient. A thorough discussion was had with the patient regarding her injury sustained today, as well as why she was moved to another room. The patient then began to cry stating that where she lives she is scared. She states that she loves her apartment but does not like her neighbors. We asked her if she felt safe returning home and she stated yes. She then began to reach out her arms and wanted to hug both of this. I apologized to her for any miscommunication or misunderstanding. She at this time appears to be stable for discharge and is not a harm to self or others. She does appear to have good outpatient follow-up. She was instructed that she is to return with any new/concerning symptoms and is welcome here any time. She was educated upon findings of today's visit, was educated upon worrisome symptoms in which to return, had questions were discharge and was discharged home in good condition. It is appear that the patient is experiencing a good deal paranoia at this time however I do not believe that she requires a 302 or inpatient admission. I believe she is able follow up with her psychiatric personnel in the outpatient setting. In the evaluation and treatment of this patient the following differential diagnoses were entertained: Bone fracture, muscle strain, clavicle fracture, shoulder fracture, shoulder dislocation, hip fracture, contusion multiple sites , paranoia, among others. Impression Primary Impression: Contusion of multiple sites Additional Impression: Fall Departure Information Dispostion Home / Self-Care Condition GOOD Referrals Sandie Anaya CRNP (PCP) Patient Instructions My [facility] Additional Instructions You were seen in the emergency department for injuries you sustained from your fall. Your x-rays do not show any broken bones. It is recommended you follow-up with your family doctor regarding today's visit. Please call them first thing tomorrow morning to schedule follow-up. Please feel free to return to the emergency department with any new/concerning symptoms. Thank you for your time. Problem Qualifiers
--- NOTE | 2016-09-09 20:35 | EMERGENCY ROOM VISIT NOTE ---
ED Visit Note First contact with patient: 18:14 The patient was seen and examined with Yazan Maher PA-C. I agree with the history, physical and findings. Please see the note for disposition and details.
== END 2016-09-09 20:57 | disposition home or self-care (01) ==
LOC: C.EDB 17:50 → C.EDA 20:57
DX: T14.8 Other injury of unspecified body region (principal); W10.9XXD Fall (on) (from) unspecified stairs and steps, subsequent encounter; F41.9 Anxiety disorder, unspecified; K21.9 Gastro-esophageal reflux disease without esophagitis; Z87.01 Personal history of pneumonia (recurrent); F22 Delusional disorders; F17.210 Nicotine dependence, cigarettes, uncomplicated; Z79.82 Long term (current) use of aspirin; Z79.899 Other long term (current) drug therapy

== ENCOUNTER → 2016-11-17 | Outpatient (CLI) | payer OTHER ==
[~2016-11-17] MED LIST changes: +ASPI81TA28 PO; +AZITTAB PO; +BENZ100C84 PO; +CYAN100020 PO; +FAMO20TA9 PO; +FEXO1TAB45 PO; +FLUT0.15 NAE; +MICO2CRE61 TOP; +NXM/40 PO; +ONDA4TAB46 PO; +RIZA10TA18 PO; +TRMCR130WC TOP; +VNTHFA/IN INH
--- NOTE | 2016-11-17 08:19 | DIAGNOSTIC IMAGING REPORT ---
ABDOMINAL ULTRASOUND COMPLETE HISTORY: Pain. Nausea. R10.9 Abdominal painR11.0 [id number]. COMPARISON: None. FINDINGS: Pancreas: The pancreas demonstrates a normal echotexture. Liver: Unremarkable. Gallbladder: No gallbladder wall thickening. No gallstones. CBD: 3 mm Kidneys: No hydronephrosis. Spleen: Normal in size. Aorta: Normal in caliber. IVC: Patent. IMPRESSION: Negative study Electronically signed by: Jose Rebollar M.D. 11/17/2016 8:18 AM Dictated Date/Time: 11/17/2016 8:15 AM
== END | disposition home or self-care (01) ==
LOC: C.ULTR 07:08
PROVIDERS: ATTEND Physician Assistant Medical
DX: R10.9 Unspecified abdominal pain (principal); R11.0 Nausea

== ENCOUNTER → 2016-11-30 | Outpatient (CLI) | payer OTHER ==
[2016-11-30 14:52] LABS: URINE APPEARANCE CLEAR (CLEAR); URINE BILIRUBIN NEG (NEG); URINE COLOR YELLOW; URINE EPITHELIAL CELL AUTO 20-30 /lpf (0-5); URINE NITRITE NEG (NEG); URINE PH 6.5 (4.5-7.5); URINE SPECIFIC GRAVITY 1.006 (1.000-1.030); UROBILINOGEN NEG (NEG); ZZUR CULT IF INDIC CLEAN CATCH YES
[2016-11-30 14:53] LABS: MANUAL MICROSCOPIC REQUIRED? NO; REVIEW REQ? NO
[2016-11-30 15:14] LABS: BLOOD UREA NITROGEN 9 mg/dl (7-18); GLUCOSE 87 mg/dl (70-99)
[2016-11-30 15:15] LABS: ALT/SGPT 26 U/L (12-78); BUN/CREATININE RATIO 8.8 (10-20); CALCIUM 9.5 mg/dl (8.5-10.1); CARBON DIOXIDE 30 mmol/L (21-32); CHLORIDE 105 mmol/L (98-107); CHOLESTEROL 252 mg/dl (0-200); SODIUM 141 mmol/L (136-145)
[2016-11-30 15:17] LABS: ALB/GLOB RATIO 1.1 (0.9-2); ALKALINE PHOSPHATASE 62 U/L (45-117); AST/SGOT 19 U/L (15-37); CHOLESTEROL/HDL RATIO 4.1; HDL CHOLESTEROL 61 mg/dl; LDL CHOLESTEROL CALCULATED 157 mg/dl; TRIGLYCERIDES 169 mg/dl (0-150); VERY LOW DENSITY LIPOPROT CALC 34 mg/dl
== END | disposition home or self-care (01) ==
LOC: C.LAB1850 13:57
PROVIDERS: ATTEND Nurse Practitioner Adult Health
DX: E78.5 Hyperlipidemia, unspecified (principal); Z20.2 Contact with and (suspected) exposure to infections with a predominantly sexual mode of transmission; R10.9 Unspecified abdominal pain; R30.0 Dysuria; M54.9 Dorsalgia, unspecified

== ENCOUNTER → 2016-12-30 | Day surgery (SDC) | payer OTHER ==
[~2016-12-30] VITALS: Ht 167.6 cm; Wt 70.0 kg
[~2016-12-30] MED LIST changes: -FAMO20TA9 PO; +FENTANYL CITRATE INJ 50 MCG/1 ML 2 ML VIAL ONE; +LIDOCAINE HCL 2% 2 ML VIAL (20MG/ML) ONE; +MIDAZOLAM HCL 1 MG/ML 2ML VIAL ONE; -ONDA4TAB46 PO; +PHENYLEPHRINE 100MCG/ML 5ML SYR ONE; +PROPOFOL IV EMULSION 10 MG/ML 20 ML VIAL IV ONE
[2016-12-30 11:44] VITALS: Ht 167.6 cm; Wt 70.0 kg
[2016-12-30 12:09] VITALS: TEMP 36.9
--- NOTE | 2016-12-30 12:43 | Endo History and Physical ---
History & Physical Date of Service: Dec 30, 2016. Chief Complaint: REFLUX AND NAUSEA Referring Physician: DR. CABRALES History of Present Illness 56 yo female who presents for EGD secondary to GERD and nausea. Past Surgical History Hx Cardiac Surgery: No Hx Internal Defibrillator: No Hx Pacemaker: No Hx Abdominal Surgery: No Hx of Implantable Prosthesis: No Hx Post-Op Nausea and Vomiting: No Hx Cancer Surgery: No Hx Thoracic Surgery: No Hx Orthopedic: No Hx Urinary Tract Surgery: No Family History Polyp Social History Smoking Status: Former Smoker Hx Substance Use: No Hx Alcohol Use: No Allergies Coded Allergies: Latex1 -Allergic Contact Dermititis (Verified Allergy, Mild, 12/30/16) Oxycodone (Verified Allergy, Mild, RASH, 12/30/16) Current Medications Reported Home Medications Medications Dose Route/Sig Max Daily Dose Days Date Category Lipitor (Atorvastatin Calcium) 40 Mg Tab 40 Mg PO DAILY 09/08/16 Reported Advil (Ibuprofen) 200 Mg Tab 200-600 Mg PO Q4H 09/08/16 Reported Depakote (Divalproex Sodium) 125 Mg Tab 125 Mg PO DAILY 05/22/16 Reported Zyprexa (Olanzapine) 5 Mg Tab 5 Mg PO DAILY 05/22/16 Reported Zantac (Ranitidine HCl) 150 Mg Tab 150 Mg PO DAILY 02/02/16 Reported Multivitamin (Multivitamins) Tab 1 Tab PO DAILY 02/02/16 Reported Aspirin Chewable (Aspirin) 81 Mg Chew 81 Mg PO DAILY 10/01/14 Reported Vital Signs Weight (Kilograms): 70 Height (Feet): 5 Height (Inches): 6 Date Time Temp Pulse Resp B/P (MAP) Pulse Ox O2 Delivery O2 Flow Rate FiO2 12/30/16 12:09 36.9 75 20 100/65 (77) 99 Room Air Physical Exam General Appearance: WD/WN, no apparent distress Respiratory/Chest: Auscultation: breath sounds normal Cardiovascular: Heart Auscultation: RRR Abdomen: Bowel Sounds: normal Inspection & Palpation: soft, non-distended, no tenderness, guarding & rebound Assessment and Plan Assessment: 56 yo female who presents for EGD secondary to GERD and nausea. Plan: Proceed with EGD.
--- NOTE | 2016-12-30 12:59 | Discharge Instructions ---
Endoscopy Patient Instructions Date / Procedure(s) Performed Dec 30, 2016. EGD Allergy Information Coded Allergies: Latex1 -Allergic Contact Dermititis (Verified Allergy, Mild, 12/30/16) Oxycodone (Verified Allergy, Mild, RASH, 12/30/16) Discharge Date / Findings Dec 30, 2016. Gastritis s/p biopsies Medication Instructions OK to resume all medications today as prescribed Reported Home Medications Medications Dose Route/Sig Max Daily Dose Days Date Category Lipitor (Atorvastatin Calcium) 40 Mg Tab 40 Mg PO DAILY 09/08/16 Reported Advil (Ibuprofen) 200 Mg Tab 200-600 Mg PO Q4H 09/08/16 Reported Depakote (Divalproex Sodium) 125 Mg Tab 125 Mg PO DAILY 05/22/16 Reported Zyprexa (Olanzapine) 5 Mg Tab 5 Mg PO DAILY 05/22/16 Reported Zantac (Ranitidine HCl) 150 Mg Tab 150 Mg PO DAILY 02/02/16 Reported Multivitamin (Multivitamins) Tab 1 Tab PO DAILY 02/02/16 Reported Aspirin Chewable (Aspirin) 81 Mg Chew 81 Mg PO DAILY 10/01/14 Reported Provider Instructions Activity Restrictions - No exercising or heavy lifting for 24 hours. - Do not drink alcohol the day of the procedure. - Do not drive a car or operate machinery until the day after the procedure. - Do not make any important decisions or sign important papers in 24 hours after the procedure. Following Day: - Return to full activity which may include returning to work/school. Diet Start your diet with liquids and light foods (jello, soup, juice, toast). Then eat your usual diet if not nauseated. Treatment For Common After Affects For mild abdominal pain, bloating, or excessive gas: - Rest - Eat lightly - Lie on right side Follow-Up Information Follow-up with DR. CABRALES as scheduled Anesthesia Information What You Should Know You have had a procedure that required some medicine to reduce anxiety and discomfort. This treatment is called moderate sedation. After receiving the treatment, you may be sleepy, but you will be able to breathe on your own. The effects of the treatment may last for several hours. Follow these instructions along with Activity/Diet recommendations noted above: * Do NOT do anything where dizziness or clumsiness would be dangerous. * Rest quietly at home today, then you can be up and about tomorrow. * Have a responsible person stay with you the rest of today. * You may have had an I.V. today. If so, you may take the dressing off later today. Recommendations Call your doctor if: * Trouble breathing * Continuous vomiting for more than 24 hours * Temperature above 101 degrees * Severe abdominal pain or bloating * Pain not relieved by pain medicine ordered * There is increased drainage or redness from any incision * A large amount of rectal bleeding greater than 2-3 tablespoons. (If you had a polyp/s removed or have hemorrhoids, a small amount of blood - from the rectum is to be expected.) * You have any unanswered questions or concerns. IN THE EVENT OF A SERIOUS EMERGENCY, GO TO THE NEAREST EMERGENCY ROOM Your discharge instructions were prepared by provider Marco Kincaid. Patient Instructions Signature Page Janie Velez Patient (or Guardian) Signature/Date: I have read and understand the instructions given to me by my caregivers. Caregiver/RN/Doctor Signature/Date: The above-named patient and/or guardian has received patient instructions on this date. + Original Patient Signature Page (only) stays with chart. Please make copy for patient.
--- NOTE | 2016-12-30 13:11 | GI REPORT ---
Procedure Date: 12/30/2016 12:33 PM Procedure: Upper GI endoscopy Indications: Gastro-esophageal reflux disease, Nausea Medicines: Monitored Anesthesia Care Complications: No immediate complications. Estimated Blood Loss: Estimated blood loss: none. Procedure: Pre-Anesthesia Assessment: - Prior to the procedure, a History and Physical was performed, and patient medications and allergies were reviewed. The patient's tolerance of previous anesthesia was also reviewed. The risks and benefits of the procedure and the sedation options and risks were discussed with the patient. All questions were answered, and informed consent was obtained. Prior Anticoagulants: The patient has taken aspirin, last dose was 1 day prior to procedure. ASA Grade Assessment: II - A patient with mild systemic disease. After reviewing the risks and benefits, the patient was deemed in satisfactory condition to undergo the procedure. After obtaining informed consent, the endoscope was passed under direct vision. Throughout the procedure, the patient's blood pressure, pulse, and oxygen saturations were monitored continuously. The scope was introduced through the mouth, and advanced to the second part of duodenum. The upper GI endoscopy was accomplished without difficulty. The patient tolerated the procedure well. Findings: The examined esophagus was normal. Localized mild inflammation characterized by erythema was found in the gastric antrum. Biopsies were taken with a cold forceps for histology. The examined duodenum was normal. Impression: - Normal esophagus. - Gastritis. Biopsied. - Normal examined duodenum. Recommendation: - Resume previous diet. - Continue present medications. - Await pathology results. - Return to primary care physician as previously scheduled. Marco Kincaid, DO 12/30/2016 1:11:36 PM This report has been signed electronically. Note Initiated On: 12/30/2016 12:33 PM I attest to the content of the Intraoperative Record and orders documented therein, exceptions below
--- NOTE | 2016-12-30 13:14 | Anesthesiology Progress Note ---
Anesthesia Post Op Note Date & Time Dec 30, 2016 at 13:14 Vital Signs Pain Intensity: 0 Vital Signs Past 12 Hours Date Time Temp Pulse Resp B/P (MAP) Pulse Ox O2 Delivery O2 Flow Rate FiO2 12/30/16 12:55 66 16 124/72 (89) 96 Room Air 12/30/16 12:09 36.9 75 20 100/65 (77) 99 Room Air Notes Mental Status: alert / awake / arousable, participated in evaluation Pt Amnestic to Procedure: Yes Nausea / Vomiting: adequately controlled Pain: adequately controlled Airway Patency, RR, SpO2: stable & adequate BP & HR: stable & adequate Hydration State: stable & adequate Anesthetic Complications: no major complications apparent
[2016-12-30 13:25] VITALS: BP 121/79; PULSE 73; O2SAT 97
== END | disposition home or self-care (01) ==
LOC: C.GI 11:23
PROVIDERS: ATTEND Internal Medicine
DX: K21.9 Gastro-esophageal reflux disease without esophagitis (principal); R11.0 Nausea; K29.70 Gastritis, unspecified, without bleeding; Z87.891 Personal history of nicotine dependence; Z79.82 Long term (current) use of aspirin

== ENCOUNTER 2017-02-14 13:34 | Emergency (ER) | payer OTHER ==
[~2017-02-14] VITALS: Ht 167.6 cm; Wt 70.9 kg
[~2017-02-14 13:34] MED LIST changes: -ASPI81TA28 PO; -AZITTAB PO; -BENZ100C84 PO; -CYAN100020 PO; -FENTANYL CITRATE INJ 50 MCG/1 ML 2 ML VIAL ONE; -FEXO1TAB45 PO; -FLUT0.15 NAE; -LIDOCAINE HCL 2% 2 ML VIAL (20MG/ML) ONE; -MICO2CRE61 TOP; -MIDAZOLAM HCL 1 MG/ML 2ML VIAL ONE; -NXM/40 PO; -PHENYLEPHRINE 100MCG/ML 5ML SYR ONE; -PROPOFOL IV EMULSION 10 MG/ML 20 ML VIAL IV ONE; -RIZA10TA18 PO; -TRMCR130WC TOP; -VNTHFA/IN INH
[2017-02-14 13:47] VITALS: TEMP 36.6; Ht 167.6 cm; Wt 70.9 kg
[2017-02-14] MEDS ORDERED: PROPARACAINE HCL 0.5% OP SOLN 15 ML BTL OP STA (14:23)
[2017-02-14] MEDS ORDERED: IBUPROFEN 600 MG TAB PO STA (15:26)
[2017-02-14] MEDS ORDERED: ERYTHROMYCIN OP OINT 5 MG/GM 3.5 GM TUBE OP ONE (15:30)
[2017-02-14 15:36] VITALS: BP 114/81; PULSE 81; O2SAT 97
--- NOTE | 2017-02-14 17:15 | EMERGENCY ROOM VISIT NOTE ---
ED Visit Note First contact with patient: 14:13 CHIEF COMPLAINT: Left eye pain HISTORY OF PRESENT ILLNESS: This 56-year-old -Luxembourger female patient presents to ER for evaluation of left eye pain that developed today after being at work. She was reaching for a bottle of bleach at the [email or web address] and states the cap must have been loose. The bottle spilled, and she got bleach on her clothing and some splashed on her face. She believes there is some in her left eye. He tried flushing her eye at work with tap water and also used Visine drops. She reports here for further care. Incident occurred around 10 AM. Since then there has been a constant moderate pain and irritation, redness and tearing in the eye. No involvement of the other eye. There is a mild blurring of vision at times and light bothers the eye. The vision has not been decreased over all. No headache, nausea, or vomiting. Pain is 6/10. She does wear glasses, but did not have them on at the time of injury. REVIEW OF SYSTEM: HEENT: No dizziness, visual problems, hearing loss, or tinnitus. There is no difficulty swallowing and no oral lesions are present. LYMPH: No adenopathy. PULMONARY: No cough, shortness of breath, sputum production or hemoptysis. CARDIOVASCULAR: No chest pain, palpitations, shortness of breath or peripheral edema. GASTROINTESTINAL: No diarrhea, constipation, nausea, vomiting, or abdominal pain. GENITOURINARY: No dysuria, frequency, urgency or nocturia. NEUROLOGIC: No weakness, muscle tenderness, epilepsy or history of neurological problems. MUSCULOSKELETAL: No history of joint tenderness/swelling. No history of arthritis or arthralgias. SKIN: No rashes or lesions. PSYCHIATRIC: Positive history of anxiety and paranoia. ENDOCRINE: No history of diabetes, thyroid disorders, or abnormal hair growth. PMH: Supplemental sheet was reviewed. Previous surgeries: None Medical history: Significant for anxiety and paranoia, Current medications: Reviewed and filed in patient's chart Allergies: Latex and oxycodone Family history: Noncontributory. SOCIAL HISTORY: Patient lives at home. Employed at the [email or web address]. No tobacco use, no EtOH use. PHYSICAL EXAM: Vital Signs: Afebrile. Reviewed and filed in patient's chart. GENERAL: Well-developed, well-nourished, middle-aged -Luxembourger female, in obvious discomfort. No acute distress. She is sitting on the bed. Alert and oriented. She smells like bleach. Skin: Warm and dry with good turgor. No rashes or lesions. No ecchymosis or erythema. The patient is not diaphoretic. No abrasions. No evidence of periorbital cellulitis. HEENT: Normocephalic, atraumatic. The pupils are round, equal, and react to light. EOMs are full. There is discharge of clear tears from the left eye which is also injected. Slit lamp examination was performed after Alcaine anesthesia and staining with fluorescein. No foreign body was seen embedded in the cornea. She has punctate stippling present diffusely over the cornea. It is shallow. I suspect this is from the tap water irrigation. She does have large areas of fluorescein uptake over the inferior sclera. This is in the area that the patient previously complained of discomfort. The cornea was clear and no hyphema was seen. Anterior chamber is without sediment. No other abnormalities were noted. DIAGNOSIS: Chemical exposure left eye (bleach) DISCHARGE INSTRUCTIONS AND TREATMENT: Patient was educated regarding today's findings. Conservative care measures were discussed. Left eye was irrigated copiously with 750 ML of normal sterile saline using a Fady lens. She was prescribed erythromycin ointment, to be used in the eye every 8 hours x5 days. The eye should recover in about 24 to 36 hours. I did speak with Dr. Ashraf regarding this patient's care. He recommended the irrigation. He also recommended the erythromycin ointment and reexamination. Follow-up with Dr. Ashraf or Dr. Stack tomorrow for reexamination. Start Tylenol and ibuprofen every 6 hours if needed for the pain. First dose of ibuprofen was given in the ED. Corneal abrasion handout was provided. Sunglasses and dark rooms will improve comfort. Return to the ED for any other concerns. Problem List Medical Problems: (1) Anxiety Status: Chronic (2) Bronchitis Status: Resolved (3) Cellulitis Status: Resolved (4) Cellulitis Status: Resolved (5) Chest pain Status: Resolved (6) GERD (gastroesophageal reflux disease) Status: Chronic (7) Migraines Status: Chronic (8) Paranoia Status: Chronic (9) Pneumonia Status: Resolved (10) Rash Status: Resolved (11) Rash Status: Resolved Current/Historical Medications Scheduled Aspirin (Aspirin Chewable), 81 MG PO DAILY Atorvastatin (Lipitor), 40 MG PO DAILY Divalproex Sodium (Depakote), 125 MG PO DAILY Ibuprofen (Advil), 200-600 MG PO Q4H Multivitamin (Multivitamin), 1 TAB PO DAILY Olanzapine (Zyprexa), 5 MG PO DAILY Ranitidine (Zantac), 150 MG PO DAILY Allergies Coded Allergies: Latex1 -Allergic Contact Dermititis (Verified Allergy, Mild, 02/14/17) Oxycodone (Verified Allergy, Mild, RASH, 02/14/17) Vital Signs Date Time Temp Pulse Resp B/P (MAP) Pulse Ox O2 Delivery O2 Flow Rate FiO2 02/14/17 15:36 81 19 114/81 97 02/14/17 13:47 36.6 93 18 113/70 99 Room Air Medications Administered Medications (Trade) Dose Ordered Sig/Theron Route Start Time Stop Time Status Last Admin Dose Admin Proparacaine HCl (Alcaine 0.5% Oph Soln) 2 drops NOW STAT OP 02/14/17 14:23 02/14/17 14:24 DC 02/14/17 14:30 2 DROPS Ibuprofen (Motrin Tab) 600 mg NOW STAT PO 02/14/17 15:26 02/14/17 15:28 DC 02/14/17 15:38 600 MG Erythromycin (Erythromycin Oph Oint) 1 appln NOW ONCE OP 02/14/17 15:30 02/14/17 15:31 DC 02/14/17 15:39 1 APPLN Departure Information Impression Primary Impression: Chemical exposure of eye Dispostion Home / Self-Care Condition GOOD Referrals Chon Fernandes M.D. Zeigler, David C., M.D. Forms WORK / SCHOOL INSTRUCTIONS, HOME CARE DOCUMENTATION FORM, MOTRIN USE, TYLENOL USE, IMPORTANT VISIT INFORMATION Patient Instructions My [facility] Additional Instructions Apply erythromycin ointment 1/4 inch in the lower lid 3 times a day for the next 3 or [address] Ashraf or Dr. Stack for follow-up tomorrow Tylenol and Motrin every 6 hours as needed for discomfort Sunglasses and dark rooms may improve your eye discomfort
== END 2017-02-14 15:44 | disposition home or self-care (01) ==
LOC: C.EDB 13:36 → C.EDD 15:44
DX: T15.92XA Foreign body on external eye, part unspecified, left eye, initial encounter (principal); X58.XXXA Exposure to other specified factors, initial encounter; Y92.59 Other trade areas as the place of occurrence of the external cause; Y99.0 Civilian activity done for income or pay; F41.9 Anxiety disorder, unspecified; K21.9 Gastro-esophageal reflux disease without esophagitis; G43.909 Migraine, unspecified, not intractable, without status migrainosus; F22 Delusional disorders; Z79.82 Long term (current) use of aspirin; Z79.899 Other long term (current) drug therapy

== ENCOUNTER 2017-02-28 17:47 | Emergency (ER) | payer OTHER ==
[~2017-02-28] VITALS: Ht 168.9 cm; Wt 68.1 kg
[~2017-02-28 17:47] MED LIST changes: -ASPI81TA28 PO; -AZITTAB PO; -BENZ100C84 PO; -CYAN100020 PO; -FEXO1TAB45 PO; -FLUT0.15 NAE; -MICO2CRE61 TOP; -NXM/40 PO; -RIZA10TA18 PO; -TRMCR130WC TOP; -VNTHFA/IN INH
[2017-02-28 17:53] VITALS: TEMP 37.7; Ht 168.9 cm; Wt 68.1 kg
[2017-02-28] MEDS ORDERED: ALBUT/IPRATROP 3MG/0.5MG NEB 3 ML VIAL INH STA (18:15)
[2017-02-28] MEDS ORDERED: BENZONATATE 100MG CAP PO ONE ×2 (18:15→19:30)
[2017-02-28] MEDS ORDERED: ACETAMINOPHEN 500 MG TAB PO STA (18:15)
[2017-02-28] MEDS ORDERED: DEXAMETHASONE 2 MG/20 ML UDP PO STA (18:15)
--- NOTE | 2017-02-28 18:16 | EMERGENCY ROOM VISIT NOTE ---
History Report prepared by Maggie: Shannon Cid Under the Supervision of: Leisa GomesO. First contact with patient: 18:04 Chief Complaint: RESPIRATORY PROBLEMS Stated Complaint: CHILLS/CHEST/LUNGS RESPIRATORY, HEADACHE History of Present Illness The patient is a 56 year old female who presents to the Emergency Room with complaints of respiratory problems beginning 3 days ago. The patient reports that she has had a headache, and a productive cough that has become tight. She also had a fever at 99.8 and has intermittently had neck pain which she describes as "tight". She states that she is on Zithromax and that her dosage ends tomorrow. The patient states that she used to smoke, but denies having a history of asthma. The patient reports that she has not gotten her flu shot yet. Pt denies change in vision, nausea, vomiting, diarrhea, pain with urination, and melena. Pt asking several times if she has pneumonia and can we read the cxr she just had done. The patient had an outpatient 2 view X-Ray done today. It was read by radiology as negative. Source of History: patient Onset: 3 days ago Position: other (global) Quality: other (respiratory problems ) Associated Symptoms: + fevers, + headache, + cough (productive, tight), + neck pain, No nausea, No vomiting, No melena, No diarrhea Review of Systems See HPI for pertinent positives & negatives. A total of 10 systems reviewed and were otherwise negative. Past Medical & Surgical Medical Problems: (1) Anxiety (2) Bronchitis (3) Cellulitis (4) Cellulitis (5) Chest pain (6) GERD (gastroesophageal reflux disease) (7) Migraines (8) Paranoia (9) Pneumonia (10) Rash (11) Rash Family History No pertinent family history Social History Smoking Status: Current Some Day Smoker Alcohol Use: none Drug Use: none Marital Status: single Housing Status: lives alone Occupation Status: unemployed Current/Historical Medications Scheduled Aspirin (Aspirin Ec), 81 MG PO BID Atorvastatin (Lipitor), 40 MG PO HS Azithromycin (Zithromax Z-Srinivasa), 0 PO UD Benzonatate (Tessalon Perles), 100 MG PO Q8 Cyanocobalamin (Vitamin B12), 1,000 MCG PO DAILY Divalproex Sodium (Depakote), 125 MG PO DAILY Esomeprazole Magnesium (Nexium), 40 MG PO DAILY Fexofenadine Hcl (Kathi), 60 MG PO DAILY Fluticasone Propionate (Nasal) (Flonase Allergy Relief), 1 SPRAY TWILA QPM Miconazole Nitrate (Topical) (Micaderm), 1 APPLN TOP BID Olanzapine (Zyprexa), 5 MG PO QAM Olanzapine (Zyprexa), 10 MG PO HS Triamcinolone Acet (Aristocort 0.1%), 1 APPLN TOP BID Scheduled PRN Albuterol Hfa (Ventolin Hfa), 2-4 PUFFS INH Q6H PRN for SOB/Wheezing Benzonatate (Tessalon Perles), 100-200 MG PO TID PRN for Cough Rizatriptan Benzoate (Maxalt), 10 MG PO UD PRN for Headache Allergies Coded Allergies: Latex1 -Allergic Contact Dermititis (Verified Allergy, Mild, 02/14/17) Oxycodone (Verified Allergy, Mild, RASH, 02/14/17) Physical Exam Vital Signs Date Time Temp Pulse Resp B/P (MAP) Pulse Ox O2 Delivery O2 Flow Rate FiO2 02/28/17 19:37 99 19 112/81 98 02/28/17 17:53 37.7 102 20 109/75 95 Room Air Physical Exam GENERAL: alert, well appearing, well nourished, no distress, non-toxic, mild cough on exam EYE EXAM: normal conjunctiva, PERRL and EOM's grossly intact OROPHARYNX: no exudate, no erythema, lips, buccal mucosa, and tongue normal and mucous membranes are moist NECK: supple, no nuchal rigidity, no adenopathy, non-tender LUNGS: Clear to auscultation. Normal chest wall mechanics, no w/r/r HEART: no murmurs, S1 normal and S2 normal ABDOMEN: abdomen soft, non-tender, normo-active bowel sounds, no masses, no rebound or guarding. BACK: Back is symmetrical on inspection and there is no deformity, no midline tenderness, no CVA tenderness. SKIN: no rashes and no bruising UPPER EXTREMITIES: upper extremities are grossly normal. LOWER EXTREMITIES: No pitting edema. NEURO EXAM: Normal sensorium, cranial nerves II-XII [grossly] intact, normal speech, no [gross] weakness of arms, no [gross] weakness of legs. Sensation grossly intact. Medical Decision & Procedures Medications Administered Medications (Trade) Dose Ordered Sig/Theron Route Start Time Stop Time Status Last Admin Dose Admin Benzonatate (Tessalon Perles Cap) 100 mg NOW ONCE PO 02/28/17 18:15 02/28/17 18:17 DC 02/28/17 18:38 100 MG Albuterol/ Ipratropium (Duoneb) 3 ml NOW STAT INH 02/28/17 18:15 02/28/17 18:17 DC 02/28/17 18:38 3 ML Acetaminophen (Tylenol Tab) 1,000 mg NOW STAT PO 02/28/17 18:15 02/28/17 18:17 DC 02/28/17 18:38 1,000 MG Dexamethasone (Decadron Conc Soln) 10 mg NOW STAT PO 02/28/17 18:28 02/28/17 18:29 DC 02/28/17 18:38 10 MG Benzonatate (Tessalon Perles Cap) 100 mg NOW ONCE PO 02/28/17 19:30 02/28/17 19:31 DC 02/28/17 19:27 100 MG ED Course 180: The patient was evaluated in room B11B. A complete history and physical exam was performed. 1814: Ordered Tylenol Tab 1,00 mg PO, Duoneb 3 ml INH, and Benzonatate 100 mg PO. 1827: Ordered Dexamethasone 10 mg PO. 0: The patient is feeling better and she will be going home. 1929: Ordered Benzonatate 100 mg PO. 1934: Upon reevaluation, the patient is feeling better. I discussed the findings and the treatment plan with the patient. She verbalizes agreement and understanding. She was discharged home. Medical Decision Differential diagnosis: Etiologies such as infections, reactive airway disease, pneumonia, pneumothorax , COPD, CHF, cardiac ischemia, pulmonary embolism, musculoskeletal, gastrointestinal, as well as others were entertained. Pt mostly concerned with results of cxr in setting of recent tx for URI/ bronchitis. Pt already taking antibiotics. Pt felt markedly improved here with neb tx and tessalon perle. Discussed finishing antibiotic course, negative cxr read by rad from outpt, symptomatic tx of cough, tylenol/ibuprofen as needed for pain/fever, sx to watch/return for, she verbalized understanding and was agreeable with plan. No nuchal rigidity here, did not feel pt condition /exam warranted LP and I have a low suspicion for meningitis/encephalitis. Doubt deep space infection. Doubt bacteremia/sepsis. No evidence for pneumonia. Pt not hypoxic here and Vs stable otw. [place] pt well enough to be discharged. Discussed f/u, sx to watch/return for, she verbalized understanding and was agreeable with plan. Medication Reconcilliation Current Medication List: was personally reviewed by me Blood Pressure Screening Patient's blood pressure: Normal blood pressure Impression Primary Impression: URI (upper respiratory infection) Additional Impression: Bronchitis Scribe Attestation The scribe's documentation has been prepared under my direction and personally reviewed by me in its entirety. I confirm that the note above accurately reflects all work, treatment, procedures, and medical decision making performed by me. Departure Information Dispostion Home / Self-Care Prescriptions Benzonatate (Tessalon Perles) 100 Mg Cap 100 MG PO Q8 for Cough, #20 CAP Prov: Loida Watters, 02/28/17 Referrals Rosie Skaggs,P.A. (PCP) Forms HOME CARE DOCUMENTATION FORM, IMPORTANT VISIT INFORMATION, WORK / SCHOOL INSTRUCTIONS Patient Instructions My [facility] Additional Instructions Please sip clear liquids at frequent intervals to stay well-hydrated. Please finish the course of antibiotics as your previously prescribed. Please take Tylenol as directed on the bottle and ibuprofen as directed on the bottle to help with fevers, aches and pains. You may use the cough medication as provided. You may take it every 8 hours. You may continue to use your inhaler at home, up to every 4 hours as needed for chest tightness/wheezing/trouble breathing. If you have any worsening symptoms, or coughing up blood, develop chest pain, fevers that do not respond to Tylenol or ibuprofen, vomiting, or you 've any other new concerns, please return the emergency room. Problem Qualifiers Primary Impression: URI (upper respiratory infection) URI type: unspecified URI Qualified Codes: J06.9 - Acute upper respiratory infection, unspecified
[2017-02-28] MEDS ORDERED: OLAN-111 PO ×2 (18:24)
[2017-02-28] MEDS ORDERED: DIVA125T18 PO (18:24)
[2017-02-28] MEDS ORDERED: RIZA10TA18 PO (18:24)
[2017-02-28] MEDS ORDERED: TRMCR130WC TOP (18:24)
[2017-02-28] MEDS ORDERED: AZITTAB PO (18:24)
[2017-02-28] MEDS ORDERED: FEXO1TAB45 PO (18:24)
[2017-02-28] MEDS ORDERED: CYAN100020 PO (18:24)
[2017-02-28] MEDS ORDERED: ATOR-24 PO (18:24)
[2017-02-28] MEDS ORDERED: NXM/40 PO (18:24)
[2017-02-28] MEDS ORDERED: FLUT0.15 NAE (18:24)
[2017-02-28] MEDS ORDERED: MICO2CRE61 TOP (18:24)
[2017-02-28] MEDS ORDERED: ASPI81TA28 PO (18:24)
[2017-02-28] MEDS ORDERED: BENZ100C84 PO ×2 (18:24→19:17)
[2017-02-28] MEDS ORDERED: VNTHFA/IN INH (18:24)
[2017-02-28] MEDS ORDERED: DEXAMETHASONE CONC 1 MG/ML 30 ML PO STA (18:28)
[2017-02-28 19:37] VITALS: BP 112/81; PULSE 99; O2SAT 98
== END 2017-02-28 19:39 | disposition home or self-care (01) ==
LOC: C.EDB 17:50
DX: J06.9 Acute upper respiratory infection, unspecified (principal); J40 Bronchitis, not specified as acute or chronic; F41.9 Anxiety disorder, unspecified; K21.9 Gastro-esophageal reflux disease without esophagitis; G43.909 Migraine, unspecified, not intractable, without status migrainosus; Z87.01 Personal history of pneumonia (recurrent); J22 Unspecified acute lower respiratory infection; R06.2 Wheezing

== ENCOUNTER → 2017-02-28 | Outpatient (CLI) | payer OTHER ==
[~2017-02-28] MED LIST changes: +ASPI81TA28 PO; +AZITTAB PO; +BENZ100C84 PO; +CYAN100020 PO; +FEXO1TAB45 PO; +FLUT0.15 NAE; +MICO2CRE61 TOP; +NXM/40 PO; +RIZA10TA18 PO; +TRMCR130WC TOP; +VNTHFA/IN INH
--- NOTE | 2017-02-28 17:47 | DIAGNOSTIC IMAGING REPORT ---
CHEST 2 VIEWS ROUTINE CLINICAL HISTORY: LOWER RESP TRACT INFECTION COMPARISON STUDY: 09/09/2016 FINDINGS: The bones soft tissues and hemidiaphragms are normal. The cardiomediastinal silhouette is normal. The lungs are clear. The pulmonary vasculature is normal. IMPRESSION: Negative chest. The above report was generated using voice recognition software. It may contain grammatical, syntax or spelling errors. Electronically signed by: Jose Rebollar M.D. 02/28/2017 5:46 PM Dictated Date/Time: 02/28/2017 5:46 PM
== END | disposition home or self-care (01) ==
LOC: C.RAD 17:21
PROVIDERS: ATTEND Physician Assistant Surgical
DX: J22 Unspecified acute lower respiratory infection (principal); R06.2 Wheezing

== ENCOUNTER → 2017-03-10 | Outpatient (CLI) | payer OTHER ==
[~2017-03-10] MED LIST changes: -ASPCH81X PO; +ASPI81TA28 PO; +AZITTAB PO; +BENZ100C84 PO; +CYAN100020 PO; +FEXO1TAB45 PO; +FLUT0.15 NAE; -IBUP-1050 PO; +MICO2CRE61 TOP; -MULT-506 PO; +NXM/40 PO; +RIZA10TA18 PO; +TRMCR130WC TOP; +VNTHFA/IN INH; -ZNTT/150 PO
--- NOTE | 2017-03-10 16:55 | DIAGNOSTIC IMAGING REPORT ---
TWO VIEW CHEST CLINICAL HISTORY: Cough. FINDINGS: PA and lateral chest radiographs are compared to study dated 02/28/2017 and correlated with chest CT dated 07/02/2016. The cardiomediastinal silhouette is unremarkable. The lungs and pleural spaces are clear. There is no pneumothorax. The skeletal structures are osteopenic. The bony thorax appears intact. IMPRESSION: No active disease in the chest. Electronically signed by: Cole Samuels M.D. 03/10/2017 4:54 PM Dictated Date/Time: 03/10/2017 4:53 PM
== END ==
LOC: C.RAD1850 16:22
PROVIDERS: ATTEND Nurse Practitioner Adult Health
DX: R05 Cough (principal)

== ENCOUNTER → 2017-03-25 | Outpatient (CLI) | payer OTHER ==
[~2017-03-25] MED LIST changes: +FAMO20TA9 PO; +ONDA4TAB46 PO
--- NOTE | 2017-03-25 12:56 | DIAGNOSTIC IMAGING REPORT ---
CHEST 2 VIEWS ROUTINE CLINICAL HISTORY: Shortness of breath COMPARISON STUDY: 03/10/2017 FINDINGS: The cardiac and mediastinal contours are normal. There is no evidence of focal pulmonary consolidation. There is no evidence of failure. No pleural effusions are visualized.[ There is a stable area of linear atelectasis/scarring at the left lung base. IMPRESSION: No active disease in the chest. Electronically signed by: Gavin Friedman M.D. 03/25/2017 12:54 PM Dictated Date/Time: 03/25/2017 12:54 PM
== END | disposition home or self-care (01) ==
LOC: C.RAD1850 12:34
PROVIDERS: ATTEND Internal Medicine
DX: R05 Cough (principal); R06.02 Shortness of breath

== ENCOUNTER 2017-03-27 23:20 | Emergency (ER) | payer OTHER ==
[~2017-03-27] VITALS: Ht 167.6 cm; Wt 71.4 kg
[~2017-03-27 23:20] MED LIST changes: -FAMO20TA9 PO; -ONDA4TAB46 PO
[2017-03-27 23:39] VITALS: TEMP 36.6; Ht 167.6 cm; Wt 71.4 kg
[2017-03-28] MEDS ORDERED: GI COCKTAIL PO STA (00:07)
[2017-03-28] MEDS ORDERED: ONDANSETRON INJ 2 MG/ML 2 ML VIAL IV STA (00:07)
[2017-03-28] MEDS ORDERED: FAMOTIDINE 20MG/102 ML D5W IV STA (00:07)
[2017-03-28] MEDS ORDERED: SODIUM CHLORIDE 0.9% 1000ML 1,000 ML IV STA (00:07)
[2017-03-28] MEDS ORDERED: ONDANSETRON 4MG OD TAB PO STA (00:13)
--- NOTE | 2017-03-28 00:13 | EMERGENCY ROOM VISIT NOTE ---
History Report prepared by Tayibgina: Domenica Asher Under the Supervision of: Dr. Deshaun Chatterjee M.D. First contact with patient: 00:03 Chief Complaint: GI ASSESSMENT Stated Complaint: ACID REFLUX, BURNING, VOMITING History of Present Illness The patient is a 56 year old female who presents to the Emergency Room with complaints of intermittent episodes acid reflux beginning just prior to arrival. The patient notes that she woke up with reflux. . The patient states that her symptoms started as a burning in her throat and now feels like she needs to burp and vomit. She notes taking a Zantac today without any relief. Her last bowel movement was this morning and it was normal. She denies any fever , shortness of breath, or chills. The patient has a hiatal hernia a history of GERD, anxiety, and a hysterectomy. Source of History: patient Onset: just prior to arrival Position: other (generalized) Quality: other (acid reflux) Timing: intermittent Associated Symptoms: No fevers, No chills, No SOB, No abdominal pain Review of Systems See HPI for pertinent positives and negatives. A total of ten systems were reviewed and were otherwise negative. Past Medical & Surgical Medical Problems: (1) Anxiety (2) Bronchitis (3) Cellulitis (4) Cellulitis (5) Chest pain (6) GERD (gastroesophageal reflux disease) (7) Migraines (8) Paranoia (9) Pneumonia (10) Rash (11) Rash Family History No pertinent family history Social History Smoking Status: Never Smoker Alcohol Use: none Drug Use: none Marital Status: single Housing Status: lives alone Occupation Status: unemployed Current/Historical Medications Scheduled Aspirin (Aspirin Ec), 81 MG PO BID Atorvastatin (Lipitor), 40 MG PO HS Azithromycin (Zithromax Z-Srinivasa), 0 PO UD Cyanocobalamin (Vitamin B12), 1,000 MCG PO DAILY Divalproex Sodium (Depakote), 125 MG PO DAILY Esomeprazole Magnesium (Nexium), 40 MG PO DAILY Famotidine (Pepcid), 20 MG PO BID Fexofenadine Hcl (Kathi), 60 MG PO DAILY Fluticasone Propionate (Nasal) (Flonase Allergy Relief), 1 SPRAY TWILA QPM Miconazole Nitrate (Topical) (Micaderm), 1 APPLN TOP BID Olanzapine (Zyprexa), 5 MG PO QAM Olanzapine (Zyprexa), 10 MG PO HS Triamcinolone Acet (Aristocort 0.1%), 1 APPLN TOP BID Scheduled PRN Albuterol Hfa (Ventolin Hfa), 2-4 PUFFS INH Q6H PRN for SOB/Wheezing Benzonatate (Tessalon Perles), 100-200 MG PO TID PRN for Cough Ondansetron Hcl (Zofran), 4 MG PO Q8H PRN for Nausea Rizatriptan Benzoate (Maxalt), 10 MG PO UD PRN for Headache Allergies Coded Allergies: Latex1 -Allergic Contact Dermititis (Verified Allergy, Mild, 03/28/17) Oxycodone (Verified Allergy, Mild, RASH, 03/28/17) Physical Exam Vital Signs Date Time Temp Pulse Resp B/P (MAP) Pulse Ox O2 Delivery O2 Flow Rate FiO2 03/28/17 02:30 75 17 119/81 95 03/27/17 23:39 36.6 86 18 117/81 98 Room Air Physical Exam GENERAL: Awake, alert, well-appearing, in no distress HENT: Normocephalic, atraumatic. Oropharynx unremarkable. EYES: Normal conjunctiva. Sclera non-icteric. NECK: Supple. No nuchal rigidity. FROM. No JVD. RESPIRATORY: Clear to auscultation. CARDIAC: Regular rate, normal rhythm. Extremities warm and well perfused. Pulses equal. ABDOMEN: Mild epigastric discomfort no peritoneal signs. Soft, non-distended. No rebound or guarding. No masses. RECTAL: Deferred. MUSCULOSKELETAL: Chest examination reveals no tenderness. The back is symmetrical on inspection without obvious abnormality. There is no CVA tenderness to palpation. No joint edema. LOWER EXTREMITIES: Calves are equal size bilaterally and non-tender. No edema. No discoloration. NEURO: Normal sensorium. No sensory or motor deficits noted. SKIN: No rash or jaundice noted. Medical Decision & Procedures ER Provider Diagnostic Interpretation: Radiology results as stated below per my review and radiologist interpretation: KUB: no obstructive bowel pattern Chest X-Ray: Clear lungs no gross hiatal hernia Medications Administered Medications (Trade) Dose Ordered Sig/Theron Route Start Time Stop Time Status Last Admin Dose Admin Miscellaneous Medication (Gi Cocktail) 24 ml NOW STAT PO 03/28/17 00:07 03/28/17 00:12 DC 03/28/17 00:30 24 ML Famotidine (Pepcid Tab) 20 mg NOW ONCE PO 03/28/17 00:15 03/28/17 00:16 DC 03/28/17 00:30 20 MG Ondansetron HCl (Zofran Odt) 4 mg NOW STAT PO 03/28/17 00:13 03/28/17 00:15 DC 03/28/17 00:29 4 MG Pantoprazole Sodium (Protonix Tab) 40 mg NOW STAT PO 03/28/17 02:02 03/28/17 02:03 DC 03/28/17 02:19 40 MG ECG Indication: abdominal pain Rate (beats per minute): 78 Rhythm: normal sinus Findings: no acute ischemic change, other (normal axis) ED Course 0005: The patient was evaluated in room C3. A complete history and physical exam was performed. 0007: GI cocktail 24 ml PO, Zofran Inj 4 mg IV, Famotidine 20 mg IV, Sodium Chloride 1000 ml @ 999 mls/hr IV. 0013: Zofran ODT 4 mg PO. 0015: Pepcid tab 20 mg PO. 0027: Maalox Susp 30 ml .ROUTE, Lidocaine HCl 20 ml .ROUTE. 0159: I reevaluated the patient and updated her with her test results. 0202: Protonix Tab 40 mg PO. 0220: I reevaluated the patient. Discussed results and discharge instructions: She verbalized understanding and agreement. The patient is ready for discharge. Medical Decision I reviewed the patient's past medical history, medications, and the nursing notes as described above. Differential diagnosis: gastritis, esophagitis, bowel obstruction, gastroenteritis, constipation, cancer, ACS. The patient is a 56 yo woman who presents to the ED with epigastric/chest discomfort with burning c/w prior chronic reflux but feels as if something is "stuck" per HPI. On arrival the patient is well-appearing in NAD. AFVSS. Patient refusing IV placement or lab draw. Agreeable for plain films and PO meds. Patient reports sx unchanged after GI cocktail/pepcid. CXR/KUB unremarkable. EKG unremarkable. D/w patient option for barium swallow but she also declines this. Again I recommend IV placement, labs, and then we can obtain CT but patient again declining and prefers to f/u with her pcp. Given patient is well-appearing this is reasonable. Findings and plan for follow-up reviewed with patient. Patient agreeable and d/c'd per discharge instructions. Medication Reconcilliation Current Medication List: was personally reviewed by me Blood Pressure Screening Patient's blood pressure: Normal blood pressure Impression Primary Impression: Abdominal pain Additional Impression: Gastritis Scribe Attestation The scribe's documentation has been prepared under my direction and personally reviewed by me in its entirety. I confirm that the note above accurately reflects all work, treatment, procedures, and medical decision making performed by me. Departure Information Dispostion Home / Self-Care Prescriptions Ondansetron Hcl (ZOFRAN) 4 Mg Tab 4 MG PO Q8H Y for Nausea, #6 TAB Prov: Deshaun Chatterjee M.D. 03/28/17 Famotidine (PEPCID) 20 Mg Tab 20 MG PO BID for 10 Days, #20 TAB Prov: Deshaun Chatterjee M.D. 03/28/17 Referrals No Doctor, Assigned (PCP) Forms HOME CARE DOCUMENTATION FORM, IMPORTANT VISIT INFORMATION Patient Instructions Abdominal Pain, ED PUD Vs Gastritis, My [facility] Additional Instructions Please follow up with your primary care physician in the next 1-3 days for re- evaluation and possible gastroenterology referral Your symptoms may be due to gastritis or esophagitis in the setting of your history of reflux. Given you did not want additional tests it is difficult definitively explain your symptoms at this time. Otherwise, your exam, EKG, and xrays did not show signs of an emergent condition at this time. Return to the emergency department for worsening symptoms as described in the accompanying instructions. Problem Qualifiers
[2017-03-28] MEDS ORDERED: FAMOTIDINE 20 MG TAB PO ONE (00:15)
[2017-03-28] MEDS ORDERED: ALUMINUM/MAGNESIUM SUSP 30 ML UDC ONE (00:27)
[2017-03-28] MEDS ORDERED: LIDOCAINE HCL 2% VISC SOLN 20 ML UDC ONE (00:27)
[2017-03-28] MEDS ORDERED: PANTOprazole SOD 40 MG TAB PO STA (02:02)
[2017-03-28] MEDS ORDERED: FAMO20TA9 PO (02:06)
[2017-03-28] MEDS ORDERED: ONDA4TAB46 PO (02:06)
[2017-03-28 02:30] VITALS: BP 119/81; PULSE 75; O2SAT 95
--- NOTE | 2017-03-28 06:56 | DIAGNOSTIC IMAGING REPORT ---
CHEST ONE VIEW PORTABLE CLINICAL HISTORY: Atypical chest pain. Vomiting. Possible reflux. COMPARISON STUDY: 03/25/2017 FINDINGS: The cardiac and mediastinal contours are normal. There is no evidence of focal pulmonary consolidation. There is no evidence of failure. No pleural effusions are visualized.[ No free intraperitoneal air is visualized. IMPRESSION: No active disease in the chest. Electronically signed by: Gavin Friedman M.D. 03/28/2017 6:55 AM Dictated Date/Time: 03/28/2017 6:54 AM
--- NOTE | 2017-03-28 07:12 | DIAGNOSTIC IMAGING REPORT ---
KUB CLINICAL HISTORY: epigastric pain COMPARISON STUDY: 01/31/2016 FINDINGS: There is no pathologic bowel dilatation. There is a faint opacity projected over the right kidney, likely are presenting overlying enteric contents although a faintly opaque calculus cannot be excluded. Pelvic basin calcifications remain similar to the prior study and likely represent phleboliths. IMPRESSION: No evidence of pathologic bowel dilatation Electronically signed by: Gavin Friedman M.D. 03/28/2017 7:11 AM Dictated Date/Time: 03/28/2017 7:10 AM
== END 2017-03-28 02:30 | disposition home or self-care (01) ==
LOC: C.EDB 23:21 → C.EDC 03-28 02:30
DX: R10.13 Epigastric pain (principal); K29.70 Gastritis, unspecified, without bleeding; F41.9 Anxiety disorder, unspecified; K21.9 Gastro-esophageal reflux disease without esophagitis; G43.909 Migraine, unspecified, not intractable, without status migrainosus; Z87.01 Personal history of pneumonia (recurrent); Z79.82 Long term (current) use of aspirin; Z79.899 Other long term (current) drug therapy

== ENCOUNTER → 2017-06-01 | Outpatient (CLI) | payer OTHER ==
[~2017-06-01] MED LIST changes: +ONDA4TAB46 PO
[2017-06-01 14:42] LABS: BASO % 0.7 %; BASO ABS # 0.04 K/uL (0-0.2); COMPLETE YES; EOS % 2.1 %; HEMATOCRIT 43.1 % (37-47); LYMPH % 46.5 %; LYMPH ABS # 2.69 K/uL (1.2-3.4); MEAN CELL VOLUME 82.7 fL (80-100); MEAN CORPUSCULAR HEMOGLOBIN 27.8 pg (25-34); MEAN CORPUSCULAR HGB CONC 33.6 g/dl (32-36); MEAN PLATELET VOLUME 10.8 fL (7.4-10.4); MONO % 8.3 %; NEUT % 42.4 %; PLATELET COUNT 294 K/uL (130-400); RED BLOOD COUNT 5.21 M/uL (4.2-5.4); WHITE BLOOD COUNT 5.79 K/uL (4.8-10.8)
[2017-06-01 15:12] LABS: ALT/SGPT 19 U/L (12-78); AST/SGOT 13 U/L (15-37); BLOOD UREA NITROGEN 13 mg/dl (7-18); BUN/CREATININE RATIO 14.5 (10-20); CALCIUM 9.9 mg/dl (8.5-10.1); CARBON DIOXIDE 28 mmol/L (21-32); CHLORIDE 103 mmol/L (98-107); CREATININE 0.92 mg/dl (0.60-1.20); GLUCOSE 88 mg/dl (70-99); POTASSIUM 3.9 mmol/L (3.5-5.1); SODIUM 135 mmol/L (136-145)
[2017-06-01 15:23] LABS: ALB/GLOB RATIO 1.1 (0.9-2); ALKALINE PHOSPHATASE 51 U/L (45-117); CHOLESTEROL 295 mg/dl (0-200); CHOLESTEROL/HDL RATIO 6.1; HDL CHOLESTEROL 48 mg/dl; LDL CHOLESTEROL CALCULATED 213 mg/dl; THYROID STIMULATING HORMONE 0.807 uIu/ml (0.300-4.500); TRIGLYCERIDES 168 mg/dl (0-150); VERY LOW DENSITY LIPOPROT CALC 34 mg/dl
== END | disposition home or self-care (01) ==
LOC: C.LAB1850 13:00
PROVIDERS: ATTEND Physician Assistant Medical
DX: D64.9 Anemia, unspecified (principal); E78.5 Hyperlipidemia, unspecified

== ENCOUNTER 2017-06-26 20:42 | Emergency (ER) | payer OTHER ==
[~2017-06-26] VITALS: Ht 167.6 cm; Wt 66.0 kg
[2017-06-26 20:45] VITALS: TEMP 36.4; Ht 167.6 cm; Wt 66.0 kg
[2017-06-26 22:07] LABS: BASO % 0.5 %; BASO ABS # 0.03 K/uL (0-0.2); EOS % 4.1 %; EOS ABS # 0.25 K/uL (0-0.5); HEMATOCRIT 40.2 % (37-47); HEMOGLOBIN 13.2 g/dL (12.0-16.0); IG# 0.01 K/uL (0.00-0.02); LYMPH % 42.8 %; LYMPH ABS # 2.62 K/uL (1.2-3.4); MEAN CELL VOLUME 83.4 fL (80-100); MEAN CORPUSCULAR HEMOGLOBIN 27.4 pg (25-34); MEAN CORPUSCULAR HGB CONC 32.8 g/dl (32-36); MEAN PLATELET VOLUME 10.3 fL (7.4-10.4); MONO % 9.3 %; MONO ABS # 0.57 K/uL (0.11-0.59); NEUT % 43.1 %; NEUT ABS # 2.64 K/uL (1.4-6.5); PLATELET COUNT 286 K/uL (130-400); RED CELL DISTRIBUTION WIDTH CV 13.9 % (11.5-14.5); RED CELL DISTRIBUTION WIDTH SD 42.3 fL (36.4-46.3); WHITE BLOOD COUNT 6.12 K/uL (4.8-10.8)
[2017-06-26] MEDS ORDERED: ALBUTEROL 0.083% NEBU SOLN 3 ML VIAL INH STA (22:19)
--- NOTE | 2017-06-26 22:22 | DIAGNOSTIC IMAGING REPORT ---
SINGLE VIEW CHEST CLINICAL HISTORY: Cough. FINDINGS: An AP, portable, upright chest radiograph is compared to study dated 03/28/2017. The examination is degraded by portable technique and apical lordotic positioning. The cardiomediastinal silhouette is unremarkable. The lungs and pleural spaces are clear. No pneumothorax is seen. The skeletal structures are osteopenic. The bony thorax is grossly intact. IMPRESSION: No active disease in the chest. Electronically signed by: Cole Samuels M.D. 06/26/2017 10:21 PM Dictated Date/Time: 06/26/2017 10:20 PM
[2017-06-26 22:42] LABS: BLOOD UREA NITROGEN 12 mg/dl (7-18); CALCIUM 9.5 mg/dl (8.5-10.1); CARBON DIOXIDE 25 mmol/L (21-32); CREATININE 0.82 mg/dl (0.60-1.20); GLUCOSE 92 mg/dl (70-99); POTASSIUM 3.7 mmol/L (3.5-5.1); SODIUM 142 mmol/L (136-145)
[2017-06-26 22:50] LABS: INFLUENZA B ANTIGEN Neg for Influ B (NEG)
[2017-06-26] MEDS ORDERED: AZITTAB PO (23:14)
[2017-06-26 23:34] VITALS: BP 101/70; PULSE 75; O2SAT 98
--- NOTE | 2017-06-27 00:53 | EMERGENCY ROOM VISIT NOTE ---
History Report prepared by Maggie: Aayush Ortega Under the Supervision of: Leisa OneillO. First contact with patient: 21:07 Chief Complaint: FLU LIKE SX Stated Complaint: COLD History of Present Illness The patient is a 57 year old female who presents to the Emergency Room with complaints of persistent chest pain since this morning. She states that became sick with congestion, sore throat, chills, diarrhea, left ear pain, and a productive cough with yellow sputum began three days ago. She notes her symptoms are worsening and she developed chest pain this morning. She describes the pain as a pressure. She states that she now has a headache. She notes a lump on right side chest. Patient denies diabetes, hypertension, hyperlipidemia , CAD, history of sudden at a young age, and smoking. Patient denies swelling of calves, recent trips, history of immobilization or recent surgery, prior history of DVT, hemoptysis, history of malignancy, history of smoking, or control/estrogen use. She denies any history of sickle cell anemia. Pt denies change in vision, runny nose, fevers, shortness of breath, nausea, vomiting, pain with urination, and melena. Source of History: patient Onset: this morning Position: chest Quality: pressure Timing: other (persistent) Associated Symptoms: + chills, + headache, + sorethroat, + cough ( productive cough with yellow sputum), + diarrhea, No fevers, No SOB, No nausea, No vomiting, No melena, No urinary symptoms (no pain with urination) Note: She notes congestion, left ear pain, and chest pressure. She note a lump on her right chest. She denies any change in vision or runny nose. Review of Systems See HPI for pertinent positives & negatives. A total of 10 systems reviewed and were otherwise negative. Past Medical & Surgical Medical Problems: (1) Anxiety (2) Bronchitis (3) Cellulitis (4) Cellulitis (5) Chest pain (6) GERD (gastroesophageal reflux disease) (7) Migraines (8) Paranoia (9) Pneumonia (10) Rash (11) Rash Family History No pertinent family history Social History Smoking Status: Current Every Day Smoker Alcohol Use: none Drug Use: none Marital Status: single Housing Status: lives alone Occupation Status: unemployed Current/Historical Medications Scheduled Aspirin (Aspirin Ec), 81 MG PO BID Atorvastatin (Lipitor), 40 MG PO HS Azithromycin (Zithromax Z-Srinivasa), 0 PO UD Cyanocobalamin (Vitamin B12), 1,000 MCG PO DAILY Divalproex Sodium (Depakote), 125 MG PO DAILY Olanzapine (Zyprexa), 5 MG PO QAM Olanzapine (Zyprexa), 10 MG PO HS Scheduled PRN Albuterol Hfa (Ventolin Hfa), 2-4 PUFFS INH Q6H PRN for SOB/Wheezing Allergies Coded Allergies: Latex1 -Allergic Contact Dermititis (Verified Allergy, Mild, 06/26/17) Oxycodone (Verified Allergy, Mild, RASH, 06/26/17) Physical Exam Vital Signs Date Time Temp Pulse Resp B/P (MAP) Pulse Ox O2 Delivery O2 Flow Rate FiO2 06/26/17 23:34 75 18 101/70 98 06/26/17 21:53 78 16 117/78 98 Room Air 06/26/17 20:45 36.4 84 18 134/81 97 Room Air Physical Exam GENERAL: Sitting up in bed, alert, well appearing, well nourished, no distress, non-toxic. Mask on face. EYE EXAM: normal conjunctiva. EARS: Left TM is clear. OROPHARYNX: no exudate, no erythema, lips, buccal mucosa, and tongue normal and mucous membranes are moist NECK: supple, no nuchal rigidity, no adenopathy, non-tender. No bruits on left. LUNGS: Clear to auscultation. Normal chest wall mechanics HEART: no murmurs, S1 normal and S2 normal CHEST: acute tenderness over right 2nd rib. ABDOMEN: abdomen soft, non-tender, normo-active bowel sounds, no masses, no rebound or guarding. BACK: Back is symmetrical on inspection and there is no deformity, no midline tenderness, no CVA tenderness. SKIN: no rashes and no bruising UPPER EXTREMITIES: upper extremities are grossly normal. LOWER EXTREMITIES: No pitting edema. Calves are equal and bilateral NEURO EXAM: Normal sensorium, cranial nerves II-XII grossly intact, normal speech, no gross weakness of arms, no gross weakness of legs. Medical Decision & Procedures ER Provider Diagnostic Interpretation: Radiology results as stated below per my review and the radiologist's interpretation: SINGLE VIEW CHEST CLINICAL HISTORY: Cough. FINDINGS: An AP, portable, upright chest radiograph is compared to study dated 03/28/2017. The examination is degraded by portable technique and apical lordotic positioning. The cardiomediastinal silhouette is unremarkable. The lungs and pleural spaces are clear. No pneumothorax is seen. The skeletal structures are osteopenic. The bony thorax is grossly intact. IMPRESSION: No active disease in the chest. Electronically signed by: Cole Samuels M.D. 06/26/2017 10:21 PM Dictated Date/Time: 06/26/2017 10:20 PM Laboratory Results 06/26/17 21:43 Red Blood Count 4.82, Mean Corpuscular Volume 83.4, Mean Corpuscular Hemoglobin 27.4, Mean Corpuscular Hemoglobin Concent 32.8, Mean Platelet Volume 10.3, Neutrophils (%) (Auto) 43.1, Lymphocytes (%) (Auto) 42.8, Monocytes (%) (Auto) 9.3, Eosinophils (%) (Auto) 4.1, Basophils (%) (Auto) 0.5, Neutrophils # (Auto) 2.64, Lymphocytes # (Auto) 2.62, Monocytes # (Auto) 0.57, Eosinophils # (Auto) 0.25, Basophils # (Auto) 0.03 06/26/17 21:43 Test 06/26/17 21:43 White Blood Count 6.12 K/uL (4.8-10.8) Red Blood Count 4.82 M/uL (4.2-5.4) Hemoglobin 13.2 g/dL (12.0-16.0) Hematocrit 40.2 % (37-47) Mean Corpuscular Volume 83.4 fL (80-100) Mean Corpuscular Hemoglobin 27.4 pg (25-34) Mean Corpuscular Hemoglobin Concent 32.8 g/dl (32-36) Platelet Count 286 K/uL (130-400) Mean Platelet Volume 10.3 fL (7.4-10.4) Neutrophils (%) (Auto) 43.1 % Lymphocytes (%) (Auto) 42.8 % Monocytes (%) (Auto) 9.3 % Eosinophils (%) (Auto) 4.1 % Basophils (%) (Auto) 0.5 % Neutrophils # (Auto) 2.64 K/uL (1.4-6.5) Lymphocytes # (Auto) 2.62 K/uL (1.2-3.4) Monocytes # (Auto) 0.57 K/uL (0.11-0.59) Eosinophils # (Auto) 0.25 K/uL (0-0.5) Basophils # (Auto) 0.03 K/uL (0-0.2) RDW Standard Deviation 42.3 fL (36.4-46.3) RDW Coefficient of Variation 13.9 % (11.5-14.5) Immature Granulocyte % (Auto) 0.2 % Immature Granulocyte # (Auto) 0.01 K/uL (0.00-0.02) D-Dimer < 190 ug/L FEU (0-500) Anion Gap 11.0 mmol/L (3-11) Est Creatinine Clear Calc Drug Dose 69.1 ml/min Estimated GFR () 90.8 Estimated GFR (Non- 78.3 BUN/Creatinine Ratio 14.6 (10-20) Calcium Level 9.5 mg/dl (8.5-10.1) Troponin I < 0.015 ng/ml (0-0.045) Influenza Type A Antigen Neg for Influ A (NEG) Influenza Type B Antigen Neg for Influ B (NEG) Laboratory results per my review. Medications Administered Medications (Trade) Dose Ordered Sig/Theron Route Start Time Stop Time Status Last Admin Dose Admin Albuterol Sulfate (Ventolin 0.083% 2.5MG/3ML Neb) 2.5 mg NOW STAT INH 06/26/17 22:19 06/26/17 22:21 DC 06/26/17 23:13 2.5 MG ECG Indication: chest pain Rate (beats per minute): 81 Rhythm: sinus rhythm Findings: no ectopy, other (Normal intervals.) Comparison ECG Date: Patient's electrocardiogram interpreted by me ED Course ED COURSE: Vital signs were reviewed and showed normal. The patients medical record was reviewed The above diagnostic studies were performed and reviewed. ED treatments and interventions as stated above. 2108: The patient was evaluated in room B4B. A complete history and physical examination was performed. 2218: Ordered Albuterol Sulfate 2.5 mg INH 2310: I reassessed the patient at this time. She does not want an antibiotic. She will follow up with her PCP. I discussed my findings with the patient and she understands and agrees with the treatment plan. Based on the patients age, coexisting illnesses, exam and lab findings the decision to treat as an outpatient was made. The patient remained stable while under my care. The patient appeared well at the time of discharge. Medical Decision Differential diagnoses includes but is not limited to acute coronary syndrome, myocardial infarction, pericarditis, pulmonary embolus, aortic dissection, pneumonia, pneumothorax, musculoskeletal, shingles, esophageal. Patient is a 57-year-old female who presents to ER for productive cough, runny nose, sore throat and chest pain. URI symptoms have been present for the past 3 days. Chest pain starting earlier this morning. Pain was partially reproducible along the anterior chest wall. CBC and BMP was unremarkable. Troponin was negative with pain greater than 8 hours. EKG was unremarkable. Influenza AB were negative. D-dimer was negative. Patient was given a neb treatment as she has faint wheezing. Symptoms improved. Offered azithromycin but she declined but would take the prescription in case her symptoms get worse over the next several days. Patient was otherwise well-appearing discharged follow-up with PCP as an outpatient. Discussed with Pt concerning signs and symptoms to watch out for. Pt was instructed to follow up with their PCP and discussed with the patient their option to return to the ED at anytime for persistent or worsening symptoms. The appropriate anticipatory guidance and out- patient management, including indications for return to the emergency department , were explained at length to the patient and understood. Medication Reconcilliation Current Medication List: was personally reviewed by me Blood Pressure Screening Patient's blood pressure: Normal blood pressure Impression Primary Impression: Acute bronchitis Scribe Attestation The scribe's documentation has been prepared under my direction and personally reviewed by me in its entirety. I confirm that the note above accurately reflects all work, treatment, procedures, and medical decision making performed by me. Departure Information Dispostion Home / Self-Care Prescriptions Azithromycin (ZITHROMAX Z-SRINIVASA) 250 Mg Tab 0 PO UD, #6 TAB 2 TABS ON DAY 1, THEN 1 TAB DAILY FOR 4 DAYS. Prov: Choco Spicer, DO 06/26/17 Referrals Ata Karimi M.D. (PCP) Forms HOME CARE DOCUMENTATION FORM, IMPORTANT VISIT INFORMATION Patient Instructions Bronchitis Acute, My [facility] Additional Instructions Please follow up with your primary care doctor with in the next 24 hours. Any worsening of your symptoms, please return to the ED immediately. This includes any fevers greater than 100.4, worsening pain, chest pain, shortness breath, persistent nausea, vomiting, unable to eat or drink, or any other concerning signs or symptoms from your standpoint. Please take antibiotics if your symptoms worsened over the next 48 hours. Problem Qualifiers Primary Impression: Acute bronchitis Bronchitis organism: unspecified organism Qualified Codes: J20.9 - Acute bronchitis, unspecified
[2017-06-29] MEDS ORDERED: AZITTAB PO (08:57)
[2017-06-29] MEDS ORDERED: ASCA500 PO (08:58)
[2017-06-29] MEDS ORDERED: MULT-506 PO (08:58)
[2017-06-29] MEDS ORDERED: SYMIN160 INH (08:59)
== END 2017-06-26 23:35 | disposition home or self-care (01) ==
LOC: C.EDB 20:43
DX: J20.9 Acute bronchitis, unspecified (principal); F41.9 Anxiety disorder, unspecified; K21.9 Gastro-esophageal reflux disease without esophagitis; F17.200 Nicotine dependence, unspecified, uncomplicated; Z79.82 Long term (current) use of aspirin

== ENCOUNTER → 2017-06-30 | Day surgery (SDC) | payer OTHER ==
[2017-06-29 08:59] VITALS: BMI 22.0
[~2017-06-30] VITALS: Ht 167.6 cm; Wt 62.7 kg
[~2017-06-30] MED LIST changes: +ASCA500 PO; -BENZ100C84 PO; -FEXO1TAB45 PO; -FLUT0.15 NAE; +LIDOCAINE HCL 2% 2 ML VIAL (20MG/ML) ONE; -MICO2CRE61 TOP; +MULT-506 PO; -NXM/40 PO; -ONDA4TAB46 PO; +PROPOFOL IV EMULSION 10 MG/ML 20 ML VIAL IV ONE; -RIZA10TA18 PO; +SODIUM CHLORIDE 0.9% 500ML 500 ML IV ONE; +SYMIN160 INH; -TRMCR130WC TOP
[2017-06-30 08:31] VITALS: Ht 167.6 cm; Wt 62.7 kg
--- NOTE | 2017-06-30 08:34 | Endo History and Physical ---
History & Physical Date of Service: Jun 30, 2017. Chief Complaint: Change in bowel habits Referring Physician: Ata Karimi History of Present Illness 57 yo female who presents for colonoscopy secondary to change in bowel habits. Past Surgical History Hx Cardiac Surgery: No Hx Internal Defibrillator: No Hx Pacemaker: No Hx Abdominal Surgery: Yes (HYSTER) Hx of Implantable Prosthesis: No Hx Post-Op Nausea and Vomiting: No Hx Cancer Surgery: No Hx Thoracic Surgery: No Hx Orthopedic: No Hx Urinary Tract Surgery: No Family History None Social History Smoking Status: Current Some Day Smoker Hx Substance Use: No Hx Alcohol Use: Yes (HX) Allergies Coded Allergies: Latex1 -Allergic Contact Dermititis (Verified Allergy, Mild, RASH, 06/30/17 ) Oxycodone (Verified Allergy, Mild, RASH, 06/30/17) Current Medications Reported Home Medications Medications Dose Route/Sig Max Daily Dose Days Date Category Dose Instructions Symbicort 160/4.5 Inhaler (Budesonide/Formoterol Fumarate) Aero 2 Puffs INH BID 06/29/17 Reported Multivitamin (Multivitamins) Tab 1 Tab PO DAILY 06/29/17 Reported Vitamin C (Ascorbic Acid) 500 Mg Tab 1,000 Tab PO DAILY 06/29/17 Reported Zithromax Z-Srinivasa (Azithromycin) 250 Mg Tab 1 Pkt PO UD 06/29/17 Reported WILL COMPLETE 07-01-17 Vitamin B12 (Cyanocobalamin) 1,000 Mcg Tab 1,000 Mcg PO DAILY 02/28/17 Reported Ventolin Hfa (Albuterol) 200 Puffs/64733 Mcg Aers 2-4 Puffs INH Q6H PRN 02/28/17 Reported Zyprexa (Olanzapine) 5 Mg Tab 5 Mg PO HS 02/28/17 Reported Depakote (Divalproex Sodium) 125 Mg Tab 125 Mg PO QAM 02/28/17 Reported DELAYED RELEASE Lipitor (Atorvastatin Calcium) 40 Mg Tab 40 Mg PO HS 02/28/17 Reported Aspirin Ec (Aspirin) 81 Mg Tab 81 Mg PO BID 02/28/17 Reported Vital Signs Weight (Kilograms): 62.73 Height (Feet): 5 Height (Inches): 6 Physical Exam General Appearance: WD/WN, no apparent distress Respiratory/Chest: Auscultation: breath sounds normal Cardiovascular: Heart Auscultation: RRR Abdomen: Bowel Sounds: normal Inspection & Palpation: soft, non-distended, no tenderness, guarding & rebound Assessment and Plan Assessment: 57 yo female who presents for colonoscopy secondary to change in bowel habits. Plan: Proceed with colonoscopy.
--- NOTE | 2017-06-30 09:10 | Discharge Instructions ---
Endoscopy Patient Instructions Date / Procedure(s) Performed Jun 30, 2017. Colonoscopy Allergy Information Coded Allergies: Latex1 -Allergic Contact Dermititis (Verified Allergy, Mild, RASH, 06/30/17 ) Oxycodone (Verified Allergy, Mild, RASH, 06/30/17) Discharge Date / Findings Jun 30, 2017. Colon polyps Internal hemorrhoids Medication Instructions OK to resume all medications today as prescribed Reported Home Medications Medications Dose Route/Sig Max Daily Dose Days Date Category Dose Instructions Symbicort 160/4.5 Inhaler (Budesonide/Formoterol Fumarate) Aero 2 Puffs INH BID 06/29/17 Reported Multivitamin (Multivitamins) Tab 1 Tab PO DAILY 06/29/17 Reported Vitamin C (Ascorbic Acid) 500 Mg Tab 1,000 Tab PO DAILY 06/29/17 Reported Zithromax Z-Srinivasa (Azithromycin) 250 Mg Tab 1 Pkt PO UD 06/29/17 Reported WILL COMPLETE 07-01-17 Vitamin B12 (Cyanocobalamin) 1,000 Mcg Tab 1,000 Mcg PO DAILY 02/28/17 Reported Ventolin Hfa (Albuterol) 200 Puffs/53707 Mcg Aers 2-4 Puffs INH Q6H PRN 02/28/17 Reported Zyprexa (Olanzapine) 5 Mg Tab 5 Mg PO HS 02/28/17 Reported Depakote (Divalproex Sodium) 125 Mg Tab 125 Mg PO QAM 02/28/17 Reported DELAYED RELEASE Lipitor (Atorvastatin Calcium) 40 Mg Tab 40 Mg PO HS 02/28/17 Reported Aspirin Ec (Aspirin) 81 Mg Tab 81 Mg PO BID 02/28/17 Reported Provider Instructions Activity Restrictions - No exercising or heavy lifting for 24 hours. - Do not drink alcohol the day of the procedure. - Do not drive a car or operate machinery until the day after the procedure. - Do not make any important decisions or sign important papers in 24 hours after the procedure. Following Day: - Return to full activity which may include returning to work/school. Diet Start your diet with liquids and light foods (jello, soup, juice, toast). Then eat your usual diet if not nauseated. Treatment For Common After Affects For mild abdominal pain, bloating, or excessive gas: - Rest - Eat lightly - Lie on right side Follow-Up Information Follow-up with Dr. Karimi as scheduled Anesthesia Information What You Should Know You have had a procedure that required some medicine to reduce anxiety and discomfort. This treatment is called moderate sedation. After receiving the treatment, you may be sleepy, but you will be able to breathe on your own. The effects of the treatment may last for several hours. Follow these instructions along with Activity/Diet recommendations noted above: * Do NOT do anything where dizziness or clumsiness would be dangerous. * Rest quietly at home today, then you can be up and about tomorrow. * Have a responsible person stay with you the rest of today. * You may have had an I.V. today. If so, you may take the dressing off later today. Recommendations Call your doctor if: * Trouble breathing * Continuous vomiting for more than 24 hours * Temperature above 101 degrees * Severe abdominal pain or bloating * Pain not relieved by pain medicine ordered * There is increased drainage or redness from any incision * A large amount of rectal bleeding greater than 2-3 tablespoons. (If you had a polyp/s removed or have hemorrhoids, a small amount of blood - from the rectum is to be expected.) * You have any unanswered questions or concerns. IN THE EVENT OF A SERIOUS EMERGENCY, GO TO THE NEAREST EMERGENCY ROOM Your discharge instructions were prepared by provider Marco Kincaid. Patient Instructions Signature Page Janie Velez Patient (or Guardian) Signature/Date: I have read and understand the instructions given to me by my caregivers. Caregiver/RN/Doctor Signature/Date: The above-named patient and/or guardian has received patient instructions on this date. + Original Patient Signature Page (only) stays with chart. Please make copy for patient.
--- NOTE | 2017-06-30 09:15 | GI REPORT ---
Procedure Date: 06/30/2017 8:44 AM Procedure: Colonoscopy Indications: Change in bowel habits Medicines: Monitored Anesthesia Care Complications: No immediate complications. Estimated Blood Loss: Estimated blood loss: none. Procedure: Pre-Anesthesia Assessment: - Prior to the procedure, a History and Physical was performed, and patient medications and allergies were reviewed. The patient's tolerance of previous anesthesia was also reviewed. The risks and benefits of the procedure and the sedation options and risks were discussed with the patient. All questions were answered, and informed consent was obtained. Prior Anticoagulants: The patient has taken aspirin, last dose was 1 day prior to procedure. ASA Grade Assessment: III - A patient with severe systemic disease. After reviewing the risks and benefits, the patient was deemed in satisfactory condition to undergo the procedure. After I obtained informed consent, the scope was passed under direct vision. Throughout the procedure, the patient's blood pressure, pulse, and oxygen saturations were monitored continuously. The On-site loaner was introduced through the anus and advanced to the terminal ileum. The colonoscopy was performed without difficulty. The patient tolerated the procedure well. The quality of the bowel preparation was good. The terminal ileum, ileocecal valve, appendiceal orifice, and rectum were photographed. Findings: The perianal and digital rectal examinations were normal. Three sessile polyps were found in the sigmoid colon and cecum. The polyps were 3 to 5 mm in size. These polyps were removed with a hot snare. Resection and retrieval were complete. Non-bleeding internal hemorrhoids were found during retroflexion. The hemorrhoids were small. Impression: - Three 3 to 5 mm polyps in the sigmoid colon and in the cecum, removed with a hot snare. Resected and retrieved. - Non-bleeding internal hemorrhoids. Recommendation: - Resume previous diet. - Continue present medications. - Repeat colonoscopy for surveillance based on pathology results. - Return to primary care physician as previously scheduled. Marco Kincaid, DO 06/30/2017 9:15:27 AM This report has been signed electronically. Note Initiated On: 06/30/2017 8:44 AM I attest to the content of the Intraoperative Record and orders documented therein, exceptions below
[2017-06-30 09:48] VITALS: BP 119/83; PULSE 70; O2SAT 99
--- NOTE | 2017-06-30 09:58 | Anesthesiology Progress Note ---
Anesthesia Post Op Note Date & Time Jun 30, 2017 at 09:58 Vital Signs Pain Intensity: 0 Vital Signs Past 12 Hours Date Time Temp Pulse Resp B/P (MAP) Pulse Ox O2 Delivery O2 Flow Rate FiO2 06/30/17 09:48 70 18 119/83 (95) 99 06/30/17 09:33 77 18 117/79 (92) 99 06/30/17 09:19 78 18 102/64 (77) 97 06/30/17 08:43 106/74 (85) 99 Room Air 06/30/17 08:39 36.4 80 18 99 Notes Mental Status: alert / awake / arousable, participated in evaluation Pt Amnestic to Procedure: Yes Nausea / Vomiting: adequately controlled Pain: adequately controlled Airway Patency, RR, SpO2: stable & adequate BP & HR: stable & adequate Hydration State: stable & adequate Anesthetic Complications: no major complications apparent
== END | disposition home or self-care (01) ==
LOC: C.GI 07:52
PROVIDERS: ATTEND Internal Medicine
DX: R19.4 Change in bowel habit (principal); D12.0 Benign neoplasm of cecum; D12.5 Benign neoplasm of sigmoid colon; K64.8 Other hemorrhoids; F17.200 Nicotine dependence, unspecified, uncomplicated; Z79.899 Other long term (current) drug therapy; Z79.82 Long term (current) use of aspirin

== ENCOUNTER → 2017-08-18 | Outpatient (CLI) | payer OTHER ==
[~2017-08-18] MED LIST changes: -LIDOCAINE HCL 2% 2 ML VIAL (20MG/ML) ONE; -PROPOFOL IV EMULSION 10 MG/ML 20 ML VIAL IV ONE; -SODIUM CHLORIDE 0.9% 500ML 500 ML IV ONE
--- NOTE | 2017-08-18 15:28 | DIAGNOSTIC IMAGING REPORT ---
CHEST 2 VIEWS ROUTINE HISTORY: Cough. COMPARISON: Chest 06/26/2017. FINDINGS: The lungs are clear. Cardiac silhouette is normal in size. No pleural effusions. No pneumothorax. IMPRESSION: No acute process. Electronically signed by: Gokul Freeman M.D. 08/18/2017 3:27 PM Dictated Date/Time: 08/18/2017 3:24 PM
== END | disposition home or self-care (01) ==
LOC: C.RAD1850 15:08
PROVIDERS: ATTEND Physician Assistant
DX: R05 Cough (principal)

== ENCOUNTER → 2017-12-24 | Outpatient (CLI) | payer OTHER ==
[~2017-12-24] MED LIST changes: +AMOX500C3 PO; -ASCA500 PO; -ASPI81TA28 PO; -ATOR-24 PO; -AZITTAB PO; -CYAN100020 PO; -DIVA125T18 PO; -MULT-506 PO; -OLAN-111 PO; -VNTHFA/IN INH
--- NOTE | 2017-12-24 11:53 | DIAGNOSTIC IMAGING REPORT ---
CHEST 2 VIEWS ROUTINE CLINICAL HISTORY: R05 cough COMPARISON STUDY: 11/24/2017 FINDINGS: The bones soft tissues and hemidiaphragms are normal. The cardiomediastinal silhouette is normal. The lungs are clear. The pulmonary vasculature is normal. IMPRESSION: Negative chest. The above report was generated using voice recognition software. It may contain grammatical, syntax or spelling errors. Electronically signed by: Jose Rebollar M.D. 12/24/2017 11:51 AM Dictated Date/Time: 12/24/2017 11:51 AM
== END | disposition home or self-care (01) ==
LOC: C.RADBC 11:38
PROVIDERS: ATTEND Family Medicine Adult Medicine
DX: R05 Cough (principal)

== ENCOUNTER → 2018-01-27 | Outpatient (CLI) | payer OTHER ==
--- NOTE | 2018-01-27 15:04 | DIAGNOSTIC IMAGING REPORT ---
CERVICAL WITHOUT CONTRAST CLINICAL HISTORY: 57 years-old Female presenting with PARETHESIA OF LEFT ARM. TECHNIQUE: Multisequence, multiplanar MR imaging of the cervical spine was performed without the use of intravenous contrast. IV contrast: None. COMPARISON: Plain radiographs from 09/08/2016. FINDINGS: Localizer images: Unremarkable. Screening of normal cervical lordosis likely positional and related to degenerative change. Vertebral bodies maintain normal height, alignment, and bone marrow signal intensity apart from limited endplate fatty changes at the inferior endplate of C6. Intervertebral disc desiccation noted diffusely with mild height loss of the discs at C5-6 and C6-7. Additional multilevel degenerative changes further detailed below: C2-3: No significant neural foraminal or spinal canal narrowing. C3-4: Minimal disc osteophyte complex and uncovertebral hypertrophy. This minimally effaces the ventral thecal sac. Minimal right and mild left neural foraminal narrowing. C4-5: Left facet arthropathy and uncovertebral hypertrophy result in mild left neural foraminal narrowing. No significant spinal canal narrowing. C5-6: Disc osteophyte complex effaces the ventral thecal sac and contours the anterior spinal cord. The posterior thecal sac is mildly effaced due to ligamentum flavum hypertrophy. Disc osteophyte complex/uncovertebral hypertrophy result in moderate bilateral neural foraminal narrowing. C6-7: Disc osteophyte complex moderately effaces the ventral thecal sac with flattening of the spinal cord. There is a slightly lesser degree of ligamentum flavum thickening at this level in comparison to C5-6. CSF signal intensity around the cord is preserved. Disc osteophyte complex/uncovertebral hypertrophy result in mild to moderate right and moderate to severe left neural foraminal narrowing. C7-T1: Mild left neural foraminal narrowing. No significant spinal canal narrowing. The spinal cord may contain increased signal intensity centrally though T2-weighted imaging is degraded by motion artifact limiting accuracy of the sequence. If present, abnormal signal intensity is noted at the level with greatest stenosis at C6-7 (series 8 image 19). Trace cord atrophy at this level may suggest myelomalacia. No cord expansion. Craniocervical junction normal. No paraspinal muscular edema. Remaining visualized soft tissues within normal limits. IMPRESSION: 1. Moderate spinal canal stenosis at C6-7 with possible myelomalacia of the spinal cord. No convincing evidence of spinal cord impingement or spinal cord edema. 2. Multilevel degenerative changes with multilevel neural foraminal narrowing as detailed above. Electronically signed by: Sumit Bee M.D. 01/27/2018 3:03 PM Dictated Date/Time: 01/27/2018 2:54 PM
== END | disposition home or self-care (01) ==
LOC: C.MRI 13:49
PROVIDERS: ATTEND Family Medicine Sports Medicine
DX: M47.812 Spondylosis without myelopathy or radiculopathy, cervical region (principal); M48.02 Spinal stenosis, cervical region; R20.2 Paresthesia of skin

== ENCOUNTER 2025-01-19 06:40 | Observation (INO) ==
--- NOTE | 2025-01-19 07:15 | Emergency Department Note ---
Impression & Plan Abdominal pain, Intractable nausea and vomiting, Hypokalemia, Elevated troponin ED Provider Note CHIEF COMPLAINT: Abdominal pain HISTORY OF PRESENTING ILLNESS: This 64-year-old female patient presents to the emergency department for evaluation of abdominal pain, nausea, vomiting, and chills. Symptoms started 4 days ago. The patient was seen in the ER early in the morning on 01/17/2025 without improvement of her symptoms. She states that she was also seen at [facility] ER 1-2 days ago. She has been having increased belching recently as well. She has not had a BM since the symptoms started per patient. She states that she can't keep anything down and is now vomiting green. She feels very weak and dehydrated. No previous history of bowel obstruction. She has a history of a hiatal hernia. She has had a hysterectomy, but denies any other abdominal surgeries. She has had EGD's and Colonoscopies in the past without acute abnormalities per patient. She states that she is having trouble sleeping because of the pain. She is not on any blood thinners. In the ER on 01/17/2025, chest x-ray showed mildly hyperinflated lungs, but no other acute abnormalities. KUB showed no acute abnormalities. The patient was given IV fluids, IV Zofran, a GI cocktail, and IV Protonix. CBC without acute abnormalities. D-dimer normal. Potassium low at 3.1, anion gap 12, and glucose 200, but CMP otherwise normal. Magnesium normal. High-sensitivity troponin normal. Lipase normal. Urinalysis with 1+ ketones, but otherwise normal. Urine drug screen positive for marijuana, but otherwise negative. Medical alcohol level negative. REVIEW OF SYSTEMS: See HPI for pertinent positives and pertinent negatives. ALLERGIES: Doxycycline, Latex, Singulair, Atlantic MEDICATIONS: See below PAST MEDICAL HISTORY: See below PHYSICAL EXAM: VITALS: Vitals are noted on the nurse's note and reviewed by myself. GENERAL: Non toxic, in no acute distress, non-diaphoretic. SKIN: Capillary refill <2 sec. EYES: PERRLA. EOMI. Conjunctivae without injection, sclerae without icterus. NOSE: Patent without discharge. MOUTH: Mucous membranes moist. Uvula midline. Airway patent. NECK: Supple without nuchal rigidity. HEART: Regular rate and rhythm without murmurs gallops or rubs. LUNGS: Clear to auscultation bilaterally without wheezes, rales or rhonchi. No retractions or accessory muscle use. ABDOMEN: Positive bowel sounds x 4. Normal tympanic percussion. Soft, diffusely tender to palpation, but worse in the upper abdomen. No masses or hepatosplenomegaly. Wright sign negative. No CVA tenderness. No guarding, rigidity, or rebound tenderness. No focal RLQ or LLQ tenderness. MUSCULOSKELETAL: No gross musculoskeletal defects. NEURO: Patient was alert and oriented. No focal neurological deficits. DIFFERENTIAL DIAGNOSIS: Differential diagnosis includes hepatitis, pancreatitis, cholecystitis, cholelithiasis, appendicitis, kidney stone, pyelonephritis, UTI, gastritis, gastroenteritis, mesenteric adenitis, obstruction, constipation, hernia, abdominal abscess, perforation, diverticulitis, IBD, ischemic colitis, abdominal aortic aneurysm, , ectopic , ovarian cyst, ovarian torsion, acute salpingitis, or others. ED COURSE AND MEDICAL DECISION MAKING: MEDICATIONS GIVEN: A total of 750 mL normal saline solution bolus. Zofran 4 mg IV, Tylenol 1000 mg IV, Pepcid 20 mg IV, Protonix 40 mg IV, Reglan 5 mg IV, and Phenergan 12.5 mg IV. K rider 10 meq IV. MONITOR: Continuous internal review and audit compliance: Order was placed for continuous internal review and audit compliance. Patient was placed on the internal review and audit compliance and continuous pulse ox. Patient was noted to be in normal sinus rhythm at an initial rate of 68 bpm per my interpretation. EKG: EKG was interpreted by myself as sinus bradycardia at 50 bpm with no acute ST or T wave changes. INTERPRETATION OF LABS: I interpreted the labs with full lab results as below in the lab section of this note. Laboratory results pertinent to the emergent complaint are discussed in the MDM section below. The patient was advised to follow up with their PCP and/or specialist(s) for further outpatient monitoring and management of any abnormal results. INTERPRETATION OF IMAGING: Imaging studies were interpreted by myself and read by radiology as per the imaging section of this note. The patient was advised to follow up with their PCP and/or specialist(s) for further outpatient management of any non-emergent abnormal findings. Chest x-ray shows no acute cardiopulmonary etiology. There is stable hyperinflated bilateral lungs which is likely COPD. New finding of mild blunting of the bilateral CP angles which is likely pleural thickening versus small effusion. CT scan of the abdomen and pelvis with IV contrast shows gallbladder sludge, but no evidence of cholecystitis. No other acute abnormalities. Right upper quadrant ultrasound showed no evidence of cholelithiasis or cholecystitis. No other acute abnormalities. CONSULTATIONS: On-call hospitalist [facility] SUMMARY: I examined the patient. The patient has had abdominal pain, nausea, and vomiting for the past 4 days. She states she has also not had a bowel movement in the last 4 days. She states she is now vomiting green. The patient was seen in the ER on 01/17/2025 as above and states that she went to [facility] ER 1 to 2 days ago. However, the patient's symptoms persist. An IV lock was placed and labs were drawn. The patient was given IV fluids as well as multiple medications as above. However, the patient persisted with nausea, vomiting, and abdominal pain. She was unable to tolerate an oral challenge in the ER. The patient was offered oral potassium, but she stated that she preferred IV potassium as this has worked better for her in the past. She was given K rider 10 meq IV. White blood cell count normal at 8.81. Hemoglobin normal at 14.1. Platelet count normal at 383. Potassium low at 3.1 and glucose 114, but CMP otherwise normal. Magnesium normal. Lipase normal. High-sensitivity troponin elevated at 17.7 with repeat 19.5, but EKG without ischemic changes and the patient denies chest pain other than the upper abdominal pain. Urinalysis with 2+ protein, 1+ ketones, trace leukocyte Estrace, 3-5 hyaline cast, 11-20 epithelial cells, and 2+ bacteria. Chest x-ray shows no acute cardiopulmonary etiology. There is stable hyperinflated bilateral lungs which is likely COPD. New finding of mild blunting of the bilateral CP angles which is likely pleural thickening versus small effusion. CT scan of the abdomen and pelvis with IV contrast shows gallbladder sludge, but no evidence of cholecystitis. No other acute abnormalities. Right upper quadrant ultrasound showed no evidence of cholelithiasis or cholecystitis. No other acute abnormalities. I had a meaningful discussion about this patient with Dr. Rizzo who agrees with my assessment and the treatment plan. The patient has been unable to tolerate an oral trial despite multiple medications as above. She also continues to complain of abdominal pain. In regards to her intractable nausea and vomiting as well as elevated troponin, we feel the patient would benefit from admission for further evaluation and treatment. I spoke with the on-call hospitalist who agreed to admit the patient. Please refer to their dictation for further details. The patient's care was transferred in stable condition. DIAGNOSIS: Abdominal pain Intractable nausea and vomiting Elevated troponin Hypokalemia Past Med/Surg History Problem List (Updated 01/19/25 @ 14:36 by Leela Boothe PA-C) Elevated troponin (Acute) Abdominal pain (Acute) Hypokalemia (Acute) Intractable nausea and vomiting (Acute) Marijuana use (Acute) Acute upper abdominal pain (Acute) Atypical chest pain (Acute) Nausea and vomiting (Acute) Prediabetes Pulmonary emphysema mild--inhalers/nebulizer prn Tobacco dependence Thoracic aorta atherosclerosis ? Hyperlipidemia Seizure disorder on depakote Hiatal hernia GERD without esophagitis Depression Bipolar I disorder, single manic episode Paranoid schizophrenia Anxiety Migraine, unspecified, not intractable, without status migrainosus Osteopenia Medical History Atrophic vulvovaginitis Vulvar intraepithelial neoplasia (ORA) grade 3 Chronic neck pain Tremor Olfactory hallucinations Hypersensitivity pneumonitis Vitamin B12 deficiency Multiple pulmonary nodules 7mm RLL - stable [id number] 4mm LLL Chronic constipation Surgical History Nausea and vomiting after administration of anesthetic agent History of dilation and curettage History of total hysterectomy with bilateral salpingo-oophorectomy (BSO) Status post trigger finger release left History of colonoscopy with polypectomy History of tooth extraction Status post colposcopy 11/21/18 S/P tooth extraction Family History Father Alcohol abuse Renal failure Mother Hypertension Aunt Breast cancer Unknown Hyperlipidemia Grandmother (Maternal) Family history of diabetes mellitus Uncle Family history of diabetes mellitus Family/Other Stroke Asthma Other Dyslipidemia No family history of adverse response to anesthesia No family history of bleeding disorder Social History Smoking Status: Former smoker Tobacco Type: Cigarettes Age Started Using Tobacco: 23; packs per day: 1; Second Hand Exposure: No (COMMENT); Do You Dip or Chew Tobacco: No; Hx Alcohol Use: No Hx Substance Use: Yes ("SOMETIMES"-"NO COMMENT") Preferred Language: Romansh Communication Ability: Effective Digital Specialist Required: No Beliefs That Will Affect Care: None marital status: Single Current Living Situation: Alone Feels Safe at Home: Hesitant to Answer Seatbelt Use: always Assistive Devices: Glasses Allergies Allergies Allergy/AdvReac Type Severity Reaction Status Date / Time doxycycline Allergy Mild Diarrhea Verified 01/08/25 08:52 latex Allergy Mild RASH Verified 01/08/25 08:52 montelukast Allergy Mild Palpitation Verified 01/08/25 08:52 s hydrocodone [From Atlantic] Allergy Unknown headache Verified 01/08/25 08:52 Home Meds Home Medications Medication Instructions Recorded Confirmed tylenol 500 mg PO DIRECTED PRN Pain 01/08/25 01/19/25 clonidine HCl 0.2 mg tablet 0.2 mg PO HS 01/19/25 01/19/25 lumateperone 42 mg capsule 42 mg PO DAILY 01/19/25 01/19/25 (Caplyta) omeprazole 20 mg capsule,delayed 40 mg PO DAILY 01/19/25 01/19/25 release rizatriptan 5 mg disintegrating 5 mg PO DIRECTED PRN Headache 01/19/25 01/19/25 tablet Previous Rx's Medication Instructions Recorded albuterol sulfate 2.5 mg/3 mL 1.25 mg (1.5 mL) continuous 04/29/22 (0.083 %) solution for nebulization nebulization Q4H PRN shortness of breath or wheezing #75 mL mupirocin 2 % topical ointment 1 applic topical BID #15 grams 12/06/24 rosuvastatin 40 mg tablet 40 mg PO DAILY #90 tabs 12/06/24 albuterol sulfate 90 mcg/actuation 1 inh inhalation QID PRN shortness 12/18/24 aerosol inhaler (Ventolin HFA) of breath or wheezing #8.5 grams pantoprazole 40 mg tablet,delayed 40 mg PO DAILY #90 tabs 01/08/25 release sucralfate 1 gram tablet (Carafate) 1 g PO BID #14 tabs 01/16/25 Results & Data (ED) Vital Signs Vital Signs - 24 hr 01/19/25 06:42 01/19/25 08:05 01/19/25 09:00 Temperature 36.9 C Temperature Source Temporal Artery Scan Pulse Rate 75 65 Pulse Rate [Apical] 57 L Pulse Rate from SpO2 Sensor Pulse Rhythm Regular Pulse Strength Normal Respiratory Rate 18 18 Respiratory Effort / Characteristics Non-Labored Spontaneous Non-Labored Spontaneous Respiratory Depth Normal Normal Respiratory Pattern Regular Regular Blood Pressure 135/91 Blood Pressure [Left Arm] 192/103 H Blood Pressure Mean 105 Blood Pressure Mean [Left Arm] 132 Blood Pressure Position Sitting Blood Pressure Position [Left Arm] Lying Pulse Oximetry 100 97 Oxygen Delivery Method Room Air Room Air Sepsis Recent Fever Within 48 Hours No Sepsis New/Unexplained Change in Mental Status N/A Sepsis Action Taken by Nursing No Action Required 01/19/25 09:00 01/19/25 11:45 01/19/25 12:17 Temperature Temperature Source Pulse Rate 61 62 Pulse Rate [Apical] Pulse Rate from SpO2 Sensor 63 Pulse Rhythm Pulse Strength Respiratory Rate 12 Respiratory Effort / Characteristics Respiratory Depth Respiratory Pattern Blood Pressure 159/96 H Blood Pressure [Left Arm] Blood Pressure Mean 117 Blood Pressure Mean [Left Arm] Blood Pressure Position Blood Pressure Position [Left Arm] Pulse Oximetry 98 98 Oxygen Delivery Method Room Air Room Air Sepsis Recent Fever Within 48 Hours Sepsis New/Unexplained Change in Mental Status Sepsis Action Taken by Nursing Laboratory Data 01/19/25 07:48 01/19/25 07:48 Lab Results 01/19/25 01/19/25 01/19/25 Range/Units 07:48 07:55 09:47 WBC 8.81 (4.8-10.8) K/ul RBC 5.33 (4.20-5.40) M/uL Hgb 14.1 (12.0-16.0) g/dl Hct 41.2 (37.0-47.0) % MCV 77.3 L (80.0-100.0) fL MCH 26.5 (25.0-34.0) pg MCHC 34.2 (32.0-36.0) g/dL RDW Std Deviation 37.9 (36.4-46.3) fL RDW Coeff of Se 13.6 (11.5-14.5) % Plt Count 383 (130-400) K/uL MPV 10.3 (9.4-12.4) fL Immature Gran % (Auto) 0.3 % Neut % (Auto) 75.2 % Lymph % (Auto) 15.8 % Yell % (Auto) 8.4 % Eos % (Auto) 0.1 % Baso % (Auto) 0.2 % Neut # (Auto) 6.62 H (1.40-6.50) K/uL Lymph # (Auto) 1.39 (1.20-3.40) K/uL Yell # (Auto) 0.74 H (0.11-0.59) K/uL Eos # (Auto) 0.01 (0.00-0.50) K/uL Baso # (Auto) 0.02 (0.00-0.20) K/uL Immature Gran # (Auto) 0.03 (0.01-0.20) K/uL Sodium 136 (136-145) mmol/L Potassium 3.1 L (3.5-5.1) mmol/L Chloride 98 (98-107) mmol/L Carbon Dioxide 29 (21-32) mmol/L Anion Gap 9 (3-11) BUN 16 (6-23) mg/dl Creatinine 0.82 (0.6-1.2) mg/dl Est Cr Clr Drug Dosing 58.4 ml/min eGFR 78.84 BUN/Creatinine Ratio 19.5 (10-20) Glucose 114 H (70-99(Fasting)) mg/dl Calcium 9.7 (8.6-10.3) mg/dl Magnesium 1.9 (1.7-2.4) mg/dl Total Bilirubin 1.0 (0.2-1.0) mg/dl AST 20 (13-39) U/L ALT 16 (7-52) U/L Alkaline Phosphatase 46 (34-104) U/L Troponin I High Sens 17.7 H 19.5 H (0-14) pg/ml Total Protein 7.3 (6.0-8.3) gm/dl Albumin 4.6 (3.4-5.0) gm/dl Globulin 2.7 (2.5-4.0) gm/dl Albumin/Globulin Ratio 1.7 (0.9-2) Lipase 29 (11-82) U/L Urine Color Yellow Urine Appearance Clear (Clear) Urine pH 6.0 (4.5-7.5) Ur Specific Wyckoff 1.024 (1.000-1.030) Urine Protein 2+ H (Negative) Urine Glucose (UA) Negative (Negative) Urine Ketones 1+ H (Negative) Urine Blood Negative (Negative) Urine Nitrite Negative (Negative) Urine Bilirubin Negative (Negative) Urine Urobilinogen Negative (Negative) Ur Leukocyte Esterase Trace H (Negative) Urine WBC (Auto) 0-5 (0-5) /hpf Urine RBC (Auto) 0-2 (0-2) /hpf U Hyaline Cast (Auto) 3-5 H (0-2) /lpf U Epithel Cells (Auto) 11-20 H (0-2) /hpf Urine Bacteria (Auto) 2+ H (None Seen) Urine Comment Administered Medications Discontinued Medications Sodium Chloride (Nss) 500 mls @ 999 mls/hr IV .Q31M ONE Stop: 01/19/25 07:51 Last Infusion: 01/19/25 08:20 Dose: Infused Documented By: [facility] Admin: 01/19/25 07:49 Dose: 999 mls/hr Documented By: RAJAN Acetaminophen (Ofirmev) 1,000 mg in 100 mls @ 400 mls/hr IV NOW STA Stop: 01/19/25 07:35 Last Infusion: 01/19/25 08:06 Dose: Infused Documented By: [facility] Admin: 01/19/25 07:51 Dose: 400 mls/hr Documented By: [facility] Famotidine (Pepcid 20mg Iv Push) 20 mg in 5 mls @ 2.5 mls/min IV NOW STA Stop: 01/19/25 07:22 Last Admin: 01/19/25 07:51 Dose: 2.5 mls/min Documented By: RAJAN Pantoprazole Sodium (Protonix) 40 mg in 10 mls @ 5 mls/min IV NOW ONE Stop: 01/19/25 07:22 Last Admin: 01/19/25 07:53 Dose: 5 mls/min Documented By: [facility] Potassium Chloride (K Hemanth / Wtr) 10 meq in 100 mls @ 100 mls/hr IV ONE ONE Stop: 01/19/25 10:30 Last Infusion: 01/19/25 10:45 Dose: Infused Documented By: Admin: 01/19/25 09:48 Dose: 100 mls/hr Documented By: [facility] Sodium Chloride (Nss) 250 mls @ 999 mls/hr IV .Q16M ONE Stop: 01/19/25 10:04 Last Infusion: 01/19/25 11:36 Dose: Infused Documented By: Admin: 01/19/25 09:52 Dose: 999 mls/hr Documented By: RAJAN Promethazine HCl (Phenergan) 12.5 mg in 50.5 mls @ 202 mls/hr IV NOW STA Stop: 01/19/25 12:29 Last Admin: 01/19/25 14:10 Dose: 202 mls/hr Documented By: KAYLA Ioversol (Optiray 320 100ml) 94 ml IV ONCE ONE Stop: 01/19/25 08:41 Last Admin: 01/19/25 08:40 Dose: 94 ml Documented By: CONNIE Metoclopramide HCl (Metoclopramide Hcl Inj 5 Mg/Ml 2 Ml Vial) 5 mg IV ONE ONE Stop: 01/19/25 09:31 Last Admin: 01/19/25 09:45 Dose: 5 mg Documented By: RAJAN Ondansetron HCl (Ondansetron Inj 2 Mg/Ml 2 Ml Vial) 4 mg IV NOW STA Stop: 01/19/25 07:22 Last Admin: 01/19/25 07:51 Dose: 4 mg Documented By: RAJAN Imaging Data Radiologist's Impression: Abdomen/Pelvis CT 01/19/25 07:[address] WITH IV CONTRAST CT DOSE: 387.64 mGy.cm HISTORY: abdominal pain, N/V, no BM - eval obstruction TECHNIQUE: Multiaxial CT images of the abdomen and pelvis were performed following the IV administration of 90 cc of Optiray, A dose lowering technique was utilized adhering to the principles of ALARA. COMPARISON STUDY: 10/23/2021 FINDINGS: ABDOMEN: There is gallbladder sludge without evidence of acute cholecystitis. Liver, spleen, pancreas, and adrenal glands are unremarkable. Kidneys show no hydronephrosis. There is contrast in the renal collecting systems which limits evaluation for calculi. No abdominal aortic aneurysm. Pelvis: Urinary bladder is mildly distended. Uterus is either absent or extremely diminutive. No adnexal mass seen. There is mild retained stool. No bowel inflammation or obstruction. No free fluid, free air, or abscess. No enlarged adenopathy. Osseous structures: No acute osseous findings. IMPRESSION: No acute findings. ACT 112: Negative or not required by law. The above report was generated using voice recognition software. It may contain grammatical, syntax or spelling errors. Electronically signed by: Elio Gamboa M.D. 01/19/2025 9:19 AM Chest X-Ray 01/19/25 07:22 EXAM: XR chest 1V portable CLINICAL HISTORY: Upper abdominal pain. TECHNIQUE: X-ray image of the chest obtained in AP projection. COMPARISON: X-ray dated 01/17/2025. FINDINGS: Pulmonary Parenchyma: Stable hyperinflated bilateral lungs. New finding of mild blunting of bilateral CP angles likely pleural thickening vs small effusion. No evidence of consolidation, collapse, or focal opacities. No pulmonary nodules identified. Heart and Mediastinum: Heart size and shape are normal. No mediastinal widening or masses. No hilar or mediastinal lymphadenopathy. Bony Thorax: Spondylotic changes in thoracic spine. Bony thorax appears intact without fractures or deformities. Soft Tissues: Soft tissues overlying the chest wall are unremarkable. IMPRESSION: 1. No acute cardiopulmonary abnormalities identified. 2. Stable hyperinflated bilateral lungs likely COPD. 3. New finding of mild blunting of bilateral CP angles likely pleural thickening vs small effusion. Electronically signed by Jean-Pierer Carranza 01-19-2025 09:09 AM Gallbladder Ultrasound 01/19/25 09:30 US gallbladder CLINICAL HISTORY: RUQ pain, N/V COMPARISON STUDY: 01/09/[address] scan earlier today FINDINGS: Pancreas is obscured by bowel gas. Liver is unremarkable measuring approximately 15 cm. Gallbladder is unremarkable with no gallstones or gallbladder wall thickening. No pericholecystic fluid or ascites. Common bile duct measures normal diameter of 4 mm. Right kidney shows no hydronephrosis. IMPRESSION: No gallstones or evidence of acute cholecystitis seen. ACT 112: Negative or not required by law. Electronically signed by: Elio Gamboa M.D. 01/19/2025 10:55 AM Discharge Plan Visit Data Chief Complaint: Abdominal Pain Stated Complaint: ABD PAIN,VOMITING ED Provider: Gavin Rizzo ED Midlevel Provider: Leela Boothe Discharge Problem: Abdominal pain, Intractable nausea and vomiting, Hypokalemia, Elevated troponin Patient Disposition: Admitted As Inpatient Condition: Fair Forms Stand Alone Forms: [facility], Important Visit Information Prescriptions Prescriptions: No Action mupirocin 2 % ointment 1 applic topical BID Qty: 15 0RF rosuvastatin 40 mg tablet 40 mg PO DAILY Qty: 90 3RF albuterol sulfate [Ventolin HFA] 90 mcg/actuation HFA aerosol inhaler 1 inh inhalation QID PRN (Reason: shortness of breath or wheezing) Qty: 8.5 0RF sucralfate [Carafate] 1 gram tablet 1 g PO BID Qty: 14 0RF albuterol sulfate 2.5 mg /3 mL (0.083 %) solution for nebulization 1.25 mg continuous nebulization Q4H PRN (Reason: shortness of breath or wheezing) Qty: 75 1RF tylenol 500 mg PO DIRECTED PRN (Reason: Pain) Patient Comments: OTC pantoprazole 40 mg tablet,delayed release (DR/EC) 40 mg PO DAILY Qty: 90 2RF clonidine HCl 0.2 mg tablet 0.2 mg PO HS omeprazole 20 mg capsule,delayed release(DR/EC) 40 mg PO DAILY Caplyta 42 mg Capsule 42 mg PO DAILY rizatriptan 5 mg tablet,disintegrating 5 mg PO DIRECTED PRN (Reason: Headache) Rx Instructions: take 1 tablet at onset of headache; if no relief, may repeat 1 tablet after at least 2 hrs PO Referrals Referrals: Pete Self DO [Primary Care Provider] - Discharge Problem: Abdominal pain Qualifiers: Abdominal location: generalized Qualified Code(s): R10.84 - Generalized abdominal pain
[2025-01-19] MEDS: SODIUM CHLORIDE 0.9% 500 ML IV ONE (07:49)
[2025-01-19] MEDS: ACETAMINOPHEN 1,000 MG/100 ML VIAL IV STA (07:51)
[2025-01-19] MEDS: ONDANSETRON INJ 2 MG/ML 2 ML VIAL IV STA (07:51)
[2025-01-19] MEDS: FAMOTIDINE 20MG IV PUSH 20 MG/5 ML SYR IV STA (07:51)
[2025-01-19] MEDS: PANTOprazole 40 MG/10 ML SYR IV ONE (07:53)
[2025-01-19 08:02] LABS: Hematocrit (blood only) 41.2 % (37.0-47.0); Hemoglobin 14.1 g/dl (12.0-16.0); Immature Granulocytes # (auto) 0.03 K/uL (0.01-0.20); Immature Granulocytes % (auto) 0.3 %; Mean Corpuscular Hemoglobin 26.5 pg (25.0-34.0); Mean Corpuscular Volume 77.3 fL (80.0-100.0); Platelet Count 383 K/uL (130-400); RDW Standard Deviation 37.9 fL (36.4-46.3); Red Blood Count 5.33 M/uL (4.20-5.40); White Blood Count 8.81 K/ul (4.8-10.8)
[2025-01-19 08:21] LABS: Alanine Aminotransferase 16.0 U/L (7-52); Albumin Globulin Ratio 1.7 (0.9-2); Alkaline Phosphatase 46.0 U/L (34-104); Anion Gap 9.0 (3-11); Bilirubin,Total 1.0 mg/dl (0.2-1.0); Blood Urea Nitrogen 16.0 mg/dl (6-23); Calcium 9.7 mg/dl (8.6-10.3); Carbon Dioxide 29.0 mmol/L (21-32); Chloride 98.0 mmol/L (98-107); Creatinine Clr Calc Pharmacy 58.4 ml/min; Globulin 2.7 gm/dl (2.5-4.0); Glucose 114.0 mg/dl (70-99(Fasting)); Lipase 29.0 U/L (11-82); Potassium 3.1 mmol/L (3.5-5.1); Sodium 136.0 mmol/L (136-145); Total Protein 7.3 gm/dl (6.0-8.3)
[2025-01-19] MEDS: OPTIRAY 320 100ml IV ONE (08:40)
[2025-01-19 08:45] LABS: Magnesium 1.9 mg/dl (1.7-2.4)
[2025-01-19 08:56] LABS: Appearance Urine Clear (Clear); Bacteria Urine Automated 2+ (None Seen); Glucose Urine UA Negative (Negative); RBC Urine Automated 0-2 /hpf (0-2); WBC Urine Automated 0-5 /hpf (0-5)
--- NOTE | 2025-01-19 09:09 | XRay Report ---
EXAM: XR chest 1V portable CLINICAL HISTORY: Upper abdominal pain. TECHNIQUE: X-ray image of the chest obtained in AP projection. COMPARISON: X-ray dated 01/17/2025. FINDINGS: Pulmonary Parenchyma: Stable hyperinflated bilateral lungs. New finding of mild blunting of bilateral CP angles likely pleural thickening vs small effusion. No evidence of consolidation, collapse, or focal opacities. No pulmonary nodules identified. Heart and Mediastinum: Heart size and shape are normal. No mediastinal widening or masses. No hilar or mediastinal lymphadenopathy. Bony Thorax: Spondylotic changes in thoracic spine. Bony thorax appears intact without fractures or deformities. Soft Tissues: Soft tissues overlying the chest wall are unremarkable. IMPRESSION: 1. No acute cardiopulmonary abnormalities identified. 2. Stable hyperinflated bilateral lungs likely COPD. 3. New finding of mild blunting of bilateral CP angles likely pleural thickening vs small effusion. Electronically signed by Jean-Pierre Carranza 01-19-2025 09:09 AM
--- NOTE | 2025-01-19 09:20 | CT Scan Report ---
ABDOMEN AND PELVIS CT WITH IV CONTRAST CT DOSE: 387.64 mGy.cm HISTORY: abdominal pain, N/V, no BM - eval obstruction TECHNIQUE: Multiaxial CT images of the abdomen and pelvis were performed following the IV administrat ion of 90 cc of Optiray, A dose lowering technique was utilized adhering to the principles of ALARA. COMPARISON STUDY: 10/23/2021 FINDINGS: ABDOMEN: There is gallbladder sludge without evidence of acute cholecystitis. Liver, spleen, pancreas , and adrenal glands are unremarkable. Kidneys show no hydronephrosis. There is contrast in the renal collecting systems which limits evaluation for calculi. No abdominal aortic aneurysm. Pelvis: Urinary bladder is mildly distended. Uterus is either absent or extremely diminutive. No adne xal mass seen. There is mild retained stool. No bowel inflammation or obstruction. No free fluid, jerry e air, or abscess. No enlarged adenopathy. Osseous structures: No acute osseous findings. IMPRESSION: No acute findings. ACT 112: Negative or not required by law. The above report was generated using voice recognition software. It may contain grammatical, syntax o r spelling errors. Electronically signed by: Elio Gamboa M.D. 01/19/2025 9:19 AM
[2025-01-19] MEDS: METOCLOPRAMIDE HCL INJ 5 MG/ML 2 ML VIAL IV ONE (09:45)
[2025-01-19] MEDS: POTASSIUM CHLORIDE / WTR 10 MEQ/100 ML PLCT IV ONE (09:48)
[2025-01-19] MEDS: SODIUM CHLORIDE 0.9% 250 ML IV ONE (09:52)
--- NOTE | 2025-01-19 10:56 | Ultrasound Report ---
US gallbladder CLINICAL HISTORY: RUQ pain, N/V COMPARISON STUDY: 01/09/[address] scan earlier today FINDINGS: Pancreas is obscured by bowel gas. Liver is unremarkable measuring approximately 15 cm. Gal lbladder is unremarkable with no gallstones or gallbladder wall thickening. No pericholecystic fluid or ascites. Common bile duct measures normal diameter of 4 mm. Right kidney shows no hydronephrosis. IMPRESSION: No gallstones or evidence of acute cholecystitis seen. ACT 112: Negative or not required by law. Electronically signed by: Elio Gamboa M.D. 01/19/2025 10:55 AM
--- NOTE | 2025-01-19 11:27 | Electrocardiogram Report ---
Test Reason : Blood Pressure : */* mmHG Vent. Rate : 58 BPM Atrial Rate : 58 BPM P-R Int : 184 ms QRS Dur : 74 ms QT Int : 466 ms P-R-T Axes : 73 15 46 degrees QTcB Int : 457 ms Sinus bradycardia Otherwise normal ECG When compared with ECG of 17-Jan-2025 03:11, Criteria for Septal infarct are no longer Present T wave inversion no longer evident in Inferior leads Confirmed by Nick Mauricio ([id number]) on 01/19/2025 11:27:16 AM Referred By: REFERRED SELF Confirmed By: Nick Mauricio
--- NOTE | 2025-01-19 12:40 | History & Physical Report ---
Date of Service January 19, 2025 Assessment & Plan (1) Intractable nausea and vomiting: (2) Hypokalemia: Plan This patient is a 64-year-old female who presented on 01/19 for epigastric pain, and intractable nausea and vomiting. Patient was also in the emergency department on the morning of 01/17 for similar. She has been unable to keep down solids or liquids at home x 3 days. Coming in for IVF and supportive care. #Intractable nausea/vomiting A/P CT without acute findings; sludge noted in gallbladder Gallbladder ultrasound without evidence of gallstones or acute cholecystitis Suspect viral GI illness Acetaminophen 1000 mg IV q8h PRN for epigastric pain Famotidine 20 mg IV QAM Protonix 40 mg IV QAM Zofran 4 mg IV q6h PRN - 1st line Compazine 5 mg IV q6h PRN - 2nd line Continue sucralfate 1 g p.o. BID as tolerated LR at 80mL/hr x 2 L for IVF maintenance #Hypokalemia K 3.1 on arrival K rider 10mEq x 4 Recheck a.m. BMP #Elevated troponin Troponin 17.7 -> 19.5 on arrival; trend to peak EKG without acute ischemic changes appreciated Clinically, patient denies chest pain, but endorses epigastric pain Continues telemetry monitoring for now #H/o medical marijuana use Patient tested positive for marijuana during ED visit on 01/17 She does have history of medical marijuana card, but reports she has not used it in 2 to 3 months Unclear if cannabinoid hyperemesis syndrome is contributory #Diarrhea (resolved) Noted by patient on evening of Tuesday 01/16 No recurrence #Bipolar 1 | paranoid schizophrenia Continue [place] #HTN Continue clonidine HS Disposition: Obs - admit to [facility] telemetry VTE PPx: Lovenox 40 mg SQ q24h History of Present Illness Chief Complaint: Abdominal pain, intractable N/V Primary Care Provider: Pete Self DO Mrs. eVlez is a 64-year-old female with PMH of paranoid schizophrenia, anxiety, depression, bipolar 1 disorder, seizure disorder, marijuana use, and pulmonary emphysema. She presented on 01/19 for epigastric pain, nausea, vomiting, and chills that woke her from sleep on Wednesday night 01/16. Patient came into the emergency department for workup, but was ultimately sent home. Since that time, she has been unable to keep down any food or liquids since Wednesday. Even when she attempts to drink liquids, she throws it up as "green bile". She has not had any of her regular medications over the past 3 days as she is unable to tolerate pills. Initially, patient thought that she might of had an episode of food poisoning, as she was having epigastric pain and diarrhea on Wednesday night. At that admission, she is still having epigastric pain that she rates a 5 out of 10. Patient has been taking Tylenol and Prilosec at home, but this has not been helping her symptoms. Patient reports no prior similar episodes as bad as this. No recent change in diet. However, she reports she had a bowl of cereal on Wednesday night, and is unsure if maybe she drank some bad milk. She has no official food allergies, but has never been tested for things like lactose or gluten intolerance. No sick contacts to her knowledge. Patient lives by herself. She reports she does have a medical marijuana card, but quit using marijuana 2 to 3 months ago. She denies any recent alcohol or tobacco use. Additionally, she reports that after having diarrhea on Wednesday, she has not had a bowel movement since. Patient is hypertensive at 159/96 at time of admission; vitals otherwise stable. ED course: NSS 500 mL IV Zofran 4 mg IV Acetaminophen 1000 mg IV Famotidine 20 mg IV Protonix 40 mg IV Reglan 5 mg IV Promethazine 12.5 mg IV K rider 10 mEq IV x 1 ROS: Patient endorses fever at home, chills, lightheadedness when standing, epigastric pain, chest palpitations, and intractable nausea/vomiting. Patient denies night sweats, headache, chest pain, SOB, pleuritic CP, cough, diarrhea (resolved), hematuria, burning with urination, blood in the urine or stool, or numbness and tingling in the extremities Allergies Allergy/AdvReac Type Severity Reaction Status Date / Time doxycycline Allergy Mild Diarrhea Verified 01/24/25 09:01 latex Allergy Mild RASH Verified 01/24/25 09:01 montelukast Allergy Mild Palpitation Verified 01/24/25 09:01 s hydrocodone [From [place]] Allergy Unknown headache Verified 01/24/25 09:01 Home Medications Medication Instructions Recorded Confirmed Type albuterol sulfate 2.5 mg/3 mL 1.25 mg (1.5 mL) continuous 04/29/22 01/24/25 Rx (0.083 %) solution for nebulization nebulization Q4H PRN shortness of breath or wheezing #75 mL mupirocin 2 % topical ointment 1 applic topical BID #15 grams 12/06/24 01/24/25 Rx rosuvastatin 40 mg tablet 40 mg PO DAILY #90 tabs 12/06/24 01/24/25 Rx albuterol sulfate 90 mcg/actuation 1 inh inhalation QID PRN shortness 12/18/24 01/24/25 Rx aerosol inhaler (Ventolin HFA) of breath or wheezing #8.5 grams tylenol 500 mg PO DIRECTED PRN Pain 01/08/25 01/24/25 History rizatriptan 5 mg disintegrating 5 mg PO DIRECTED PRN Headache 01/19/25 01/24/25 History tablet Magic Mouthwash 300 mL mouthwash 5 ml mucous membrane BID PRN 01/22/25 01/24/25 Rx stomach upset #100 mL pantoprazole 40 mg tablet,delayed 40 mg PO BID #60 tabs 01/22/25 01/24/25 Rx release famotidine 20 mg tablet 20 mg PO UD 01/24/25 01/24/25 History Past Med/Surg History Problem List (Updated 01/24/25 @ 09:23 by Taylor Beltran) Elevated troponin (Acute) Abdominal pain (Acute) Hypokalemia (Acute) Intractable nausea and vomiting (Acute) Marijuana use (Acute) Acute upper abdominal pain (Acute) Atypical chest pain (Acute) Nausea and vomiting (Acute) Prediabetes Pulmonary emphysema mild--inhalers/nebulizer prn Tobacco dependence Thoracic aorta atherosclerosis ? Seizure disorder on depakote Paranoid schizophrenia Osteopenia Migraine, unspecified, not intractable, without status migrainosus Hiatal hernia GERD without esophagitis Depression Bipolar I disorder, single manic episode Hyperlipidemia Anxiety Medical History (Updated 01/24/25 @ 09:23 by Taylor Beltran) Thoracic aorta atherosclerosis ? Hx of seizure disorder per records, pt would not complete PAT interview 01/24/25, unsure of last seizure; no longer on seizure meds Pulmonary emphysema mild--nebulizer prn, per record History of prediabetes per records Paranoid schizophrenia per records Hx of osteopenia per records Hx of migraines per records Intractable nausea and vomiting per records, recently at [place] [facility] for this 01/22/25 Hx of hyperlipidemia per records Hx of hiatal hernia per records Hx of gastroesophageal reflux (GERD) per records History of depression per records Bipolar I disorder History of anxiety per records Atrophic vulvovaginitis Vulvar intraepithelial neoplasia (ORA) grade 3 Chronic neck pain Tremor Olfactory hallucinations Hypersensitivity pneumonitis Vitamin B12 deficiency Multiple pulmonary nodules 7mm RLL - stable [id number] 4mm LLL Chronic constipation Surgical History Nausea and vomiting after administration of anesthetic agent History of dilation and curettage History of total hysterectomy with bilateral salpingo-oophorectomy (BSO) Status post trigger finger release left History of colonoscopy with polypectomy History of tooth extraction Status post colposcopy 11/21/18 S/P tooth extraction Family History Father Alcohol abuse Renal failure Mother Hypertension Aunt Breast cancer Unknown Hyperlipidemia Grandmother (Maternal) Family history of diabetes mellitus Uncle Family history of diabetes mellitus Family/Other Stroke Asthma Other Dyslipidemia No family history of adverse response to anesthesia No family history of bleeding disorder Social History Smoking Status: Unknown if ever smoked Tobacco Type: Cigarettes Age Started Using Tobacco: 23; packs per day: 1; Preferred Language: Austrian Communication Ability: pt refused Distance Learning Program Coordinator Required: No Beliefs That Will Affect Care: None marital status: Single Current Living Situation: Alone Current Living Situation Comment: pt refused PAT interview after going over meds and allergies Feels Safe at Home: Yes Seatbelt Use: always Assistive Devices: Glasses Review of Systems Review of Systems: See HPI above Physical Exam Physical Exam: General: no acute distress; fatigued; non-toxic appearing; frail appearing; cooperative; SpO2 98% on RA HEENT: normocephalic, atraumatic; no scleral icterus; PERRLA w/ EOMs intact; vision and hearing grossly intact Neck: supple; no lymphadenopathy; trachea midline Skin: warm, dry without signs of tenting; no cyanosis; no rashes, bruising, lesions, or erythema noted CV: chest wall NTP; RRR; S1/S2 normal; no murmurs/rubs/gallops; pulses intact and symmetric at radial, DP, and PT Lungs: no acute respiratory distress; symmetrical chest wall expansion; clear breath sounds across all lung dodson w/o adventitious sounds; no wheezing ABD: Soft, RUQ mildly TTP; epigastric region TTP; no rashes or bruising appreciated on the abdomen or flanks b/l; BS present; no rebound/guarding; no distention MSK: no tics or fasciculations; no edema noted in the LEs b/l, nonerythematous Neuro: A&Ox3; normal mood and affect; fluent speech; no focal deficits; sensation intact and symmetric in the LEs b/l Results & Data Results & Data Vital Signs (Past 12 Hours) Vital Signs Temp Pulse Pulse Resp BP BP Pulse Ox 01/19/25 12:17 62 01/19/25 11:45 61 12 159/96 H 98 01/19/25 09:00 98 01/19/25 09:00 57 L 18 192/103 H 97 01/19/25 08:05 65 01/19/25 06:42 36.9 C 75 18 135/91 100 O2 Del Method 01/19/25 12:17 01/19/25 11:45 Room Air 01/19/25 09:00 Room Air 01/19/25 09:00 Room Air 01/19/25 08:05 01/19/25 06:42 Room Air Laboratory Results Abnormal lab results 01/19/25 01/19/25 01/19/25 Range/Units 07:48 07:55 09:47 MCV 77.3 L (80.0-100.0) fL Neut # (Auto) 6.62 H (1.40-6.50) K/uL [place] # (Auto) 0.74 H (0.11-0.59) K/uL Potassium 3.1 L (3.5-5.1) mmol/L Glucose 114 H (70-99(Fasting)) mg/dl Troponin I High Sens 17.7 H 19.5 H (0-14) pg/ml Urine Protein 2+ H (Negative) Urine Ketones 1+ H (Negative) Ur Leukocyte Esterase Trace H (Negative) U Hyaline Cast (Auto) 3-5 H (0-2) /lpf U Epithel Cells (Auto) 11-20 H (0-2) /hpf Urine Bacteria (Auto) 2+ H (None Seen) Diagnostic Findings Abdomen/Pelvis CT 01/19/25 07:[address] WITH IV CONTRAST CT DOSE: 387.64 mGy.cm HISTORY: abdominal pain, N/V, no BM - eval obstruction TECHNIQUE: Multiaxial CT images of the abdomen and pelvis were performed following the IV administration of 90 cc of Optiray, A dose lowering technique was utilized adhering to the principles of ALARA. COMPARISON STUDY: 10/23/2021 FINDINGS: ABDOMEN: There is gallbladder sludge without evidence of acute cholecystitis. Liver, spleen, pancreas, and adrenal glands are unremarkable. Kidneys show no hydronephrosis. There is contrast in the renal collecting systems which limits evaluation for calculi. No abdominal aortic aneurysm. Pelvis: Urinary bladder is mildly distended. Uterus is either absent or extremely diminutive. No adnexal mass seen. There is mild retained stool. No bowel inflammation or obstruction. No free fluid, free air, or abscess. No enlarged adenopathy. Osseous structures: No acute osseous findings. IMPRESSION: No acute findings. ACT 112: Negative or not required by law. The above report was generated using voice recognition software. It may contain grammatical, syntax or spelling errors. Electronically signed by: Elio Gamboa M.D. 01/19/2025 9:19 AM Chest X-Ray 01/19/25 07:22 EXAM: XR chest 1V portable CLINICAL HISTORY: Upper abdominal pain. TECHNIQUE: X-ray image of the chest obtained in AP projection. COMPARISON: X-ray dated 01/17/2025. FINDINGS: Pulmonary Parenchyma: Stable hyperinflated bilateral lungs. New finding of mild blunting of bilateral CP angles likely pleural thickening vs small effusion. No evidence of consolidation, collapse, or focal opacities. No pulmonary nodules identified. Heart and Mediastinum: Heart size and shape are normal. No mediastinal widening or masses. No hilar or mediastinal lymphadenopathy. Bony Thorax: Spondylotic changes in thoracic spine. Bony thorax appears intact without fractures or deformities. Soft Tissues: Soft tissues overlying the chest wall are unremarkable. IMPRESSION: 1. No acute cardiopulmonary abnormalities identified. 2. Stable hyperinflated bilateral lungs likely COPD. 3. New finding of mild blunting of bilateral CP angles likely pleural thickening vs small effusion. Electronically signed by Jean-Pierre Carranza 01-19-2025 09:09 AM Gallbladder Ultrasound 01/19/25 09:30 US gallbladder CLINICAL HISTORY: RUQ pain, N/V COMPARISON STUDY: 01/09/[address] scan earlier today FINDINGS: Pancreas is obscured by bowel gas. Liver is unremarkable measuring approximately 15 cm. Gallbladder is unremarkable with no gallstones or gallbladder wall thickening. No pericholecystic fluid or ascites. Common bile duct measures normal diameter of 4 mm. Right kidney shows no hydronephrosis. IMPRESSION: No gallstones or evidence of acute cholecystitis seen. ACT 112: Negative or not required by law. Electronically signed by: Elio Gamboa M.D. 01/19/2025 10:55 AM ECG Additional Comments: ECG revealed sinus bradycardia at 58 bpm; QTc 457 Code Status & VTE Plan Code Status Conditional code Patient reports that she would want CPR and cardiac defibrillation in the event of medical urgency, but would not want any invasive airways under any conditions. It was explained at bedside that, often times, if people are able to get a pulse back with CPR they require temporary intubation in order to ensure enough oxygen gets their brain. Patient was advised that declining temporary mechanical ventilation may lead to hypoxic brain injuries that could cause permanent damage. Despite this, patient is adamant that she wants CPR and cardiac defibrillation, but no intubation under any circumstances due to watching her brother on a mechanical ventilator. VTE Prophylaxis Plan VTE Prophylaxis will be ordered: Yes Supervising Physician Co-Signing Physician Notes Attending Attestation & Admit Note: Pt seen/examined, chart reviewed, admit care plan d/w SELIN Lundberg. I agree w/ the tolbert components of his admission documentation. 64yo female with paranoid schizophrenia, anxiety, depression, bipolar 1 disorder, seizure disorder, medical marijuana use, and emphysema. Presented with persistent epigastric abdominal pain, nausea, vomiting, and chills. Symptoms began on 01/16/25. She had 1 large diarrhea stool at home but none since then. No fevers. PMH/PSH/allergies/meds/sochx - reviewed vitals stable exam: gen - lying comfortably in bed, nontoxic neck - no JVD mouth - MM dry heart - RRR, s1 s2, no murmur lungs - CTA b/l abd - soft, mildly tender high epigastric region, BS+, no HSM ext - no edema, pulses 2+ b/l labs reviewed CT a/p - gall bladder sludge, but no stones, and no features of cholecystitis RUQ u/s - no cholecystitis A/P: 1. epigastric abd pain, nausea, vomiting - gastritis? viral gastroenteritis? other? 2. gall bladder sludge, but no cholecystitis on imaging 3. schizophrenia/bipolar 4. seizure disorder 5. hypokalemia -agree with IV fluids, acid reducers, etc. -low threshold for formal GI consultation -clear liquid diet to start -replace low K -if diarrhea recurs send stool for c diff and stool BioFire -cont chronic mental health medicines Lester Card MD PG Care Time/CCT Total # of Minutes Spent Total Time Spent with Patient: Total time spent is greater than 50% in coordination of care (as documented) at patient's floor/unit and/or counseling patient: Coding [place] [address] INT INP/OBS CARE 2/55MIN Patient Type Established Medical Decision Making Moderate Complexity Diagnoses Intractable nausea and vomiting R11.2 Hypokalemia E87.6
[2025-01-19] MEDS: PROMETHAZINE 12.5 MG/50.5 ML BAG IV STA (14:10)
[2025-01-19] MEDS ORDERED: MELATONIN 3 MG TAB PO PRN (15:29)
[2025-01-19] MEDS ORDERED: RIZATRIPTAN BENZOATE 10 MG TAB PO PRN (15:29)
[2025-01-19] MEDS ORDERED: ALBUTEROL 0.083% NEBU SOLN 3 ML VIAL NEB PRN (15:29)
--- NOTE | 2025-01-19 15:37 | Emergency Department Note ---
ED Visit Note I was consulted by the Advanced Practice Provider. I personally made/approved the management plan and take responsibility for the patient management. This includes the aspects of: -History/Physical -MDM
[2025-01-19] MEDS: LACTATED RINGER'S 1,000 ML IV SCH (15:58)
[2025-01-19] MEDS: POTASSIUM CHLORIDE / WTR 10 MEQ/100 ML PLCT IV SCH (15:58)
[2025-01-19] MEDS: ACETAMINOPHEN 1,000 MG/100 ML VIAL IV PRN (19:05)
[2025-01-19] MEDS: ONDANSETRON INJ 2 MG/ML 2 ML VIAL IV PRN (19:06)
[2025-01-19] MEDS: ENOXAPARIN INJ 40 MG/0.4 ML SYR SQ SCH (19:57)
[2025-01-19] MEDS: SUCRALFATE 1 GM TAB PO SCH (19:58)
[2025-01-19] MEDS: MUPIROCIN 2% OINT 22 GM TUBE TOP SCH (19:58)
[2025-01-19] MEDS: PROCHLORPERAZINE 5 MG in SYRINGE 4 ML IV PRN (19:58)
[2025-01-20] MEDS: MELATONIN 3 MG TAB PO SCH (01:17)
[2025-01-20 07:42] LABS: Hematocrit (blood only) 38.5 % (37.0-47.0); Hemoglobin 12.6 g/dl (12.0-16.0); Immature Granulocytes # (auto) 0.03 K/uL (0.01-0.20); Immature Granulocytes % (auto) 0.4 %; Mean Corpuscular Hemoglobin 25.8 pg (25.0-34.0); Mean Corpuscular Volume 78.7 fL (80.0-100.0); Platelet Count 305 K/uL (130-400); RDW Standard Deviation 39.0 fL (36.4-46.3); Red Blood Count 4.89 M/uL (4.20-5.40); White Blood Count 7.10 K/ul (4.8-10.8)
[2025-01-20] MEDS: PANTOprazole 40 MG/10 ML SYR IV SCH (08:48)
[2025-01-20 09:03] LABS: Alanine Aminotransferase 12.0 U/L (7-52); Albumin Globulin Ratio 1.5 (0.9-2); Alkaline Phosphatase 41.0 U/L (34-104); Anion Gap 10.0 (3-11); Bilirubin,Total 1.1 mg/dl (0.2-1.0); Blood Urea Nitrogen 13.0 mg/dl (6-23); Calcium 8.9 mg/dl (8.6-10.3); Carbon Dioxide 26.0 mmol/L (21-32); Chloride 100.0 mmol/L (98-107); Creatinine Clr Calc Pharmacy 58.0 ml/min; Globulin 2.5 gm/dl (2.5-4.0); Glucose 113.0 mg/dl (70-99(Fasting)); Potassium 3.4 mmol/L (3.5-5.1); Sodium 136.0 mmol/L (136-145); Total Protein 6.2 gm/dl (6.0-8.3)
--- NOTE | 2025-01-20 09:15 | Hospitalist Progress Note ---
Date of Service January 20, 2025 Assessment & Plan (1) Intractable nausea and vomiting: (2) Hypokalemia: Plan This patient is a 64-year-old female who presented on 01/19 for epigastric pain, and intractable nausea and vomiting. Patient was also in the emergency department on the morning of 01/17 for similar. She has been unable to keep down solids or liquids at home x 3 days. Coming in for IVF and supportive care. #Intractable nausea/vomiting A/P CT without acute findings; sludge noted in gallbladder Gallbladder ultrasound without evidence of gallstones or acute cholecystitis Suspect viral GI illness v. Peptic ulcer Acetaminophen 1000 mg IV q8h PRN for epigastric pain Famotidine 20 mg IV QAM Protonix 40 mg IV QAM Zofran 4 mg IV q6h PRN - 1st line Compazine 5 mg IV q6h PRN - 2nd line Continue sucralfate 1 g p.o. BID as tolerated LR at 80mL/hr x 4 L for IVF maintenance Still not tolerating clear liquid diet on 01/20, reported vomiting after attempting lemon water ice Downgraded to n.p.o. Patient did not tolerate capsaicin cream as it reportedly burned her skin She declined Dilaudid for epigastric pain She declined menthol lozenge Trial of Maalox 15 mg suspension x 1 #Hypokalemia (improving) Continue repletion with K riders as needed #Elevated troponin Mild; troponin 17.7 -> 19.5 -> 13.5 EKG without acute ischemic changes appreciated Suspect stress demargination in the setting of acute GI illness Continues telemetry monitoring for now #H/o medical marijuana use Patient tested positive for marijuana during ED visit on 01/17 She does have history of medical marijuana card, but reports she has not used it in 2 to 3 months Unclear if cannabinoid hyperemesis syndrome is contributory #Diarrhea (resolved) Noted by patient on evening of Tuesday 01/16 No recurrence, per patient #Bipolar 1 | paranoid schizophrenia Normally on Caplyta, but not tolerated 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 Caplyta is non-formulary, and patient reports she does not have anyone who could pick it up to bring it in Reach out to pharmacy; Caplyta is a second gen antipsychotic, and potential alternatives could be risperidone or olanzapine ODT Reached out to psychiatry for recommendations (who will review cardiac status and follow up) #HTN Continue clonidine HS Disposition: Continued stay on MedSurg telemetry, as she is still not tolerating clear liquid diet VTE PPx: Lovenox 40 mg SQ q24h Admission and Anticipated Discharge Date Admission Date: January 19, 2025 Supervising Physician Co-Signing Physician Notes Attending Attestation: Chart reviewed, care plan d/w PA Gokul Lundberg. I agree w/ the tolbert components of his documentation. Lester aCrd MD Subjective Mrs. Velez reports she is still having 10 out of 10 epigastric pain this morning. She slept well last night, but attempted to eat some lemon flavored water ice this morning, and immediately vomited it back up. The pain in her ep igastric region and started within 5 minutes. She denies any prior history of peptic ulcers, but has been told by her PCP in the past that she "might have ulcers". Currently, she reports she feels like she is "dying". No additional bowel movements overnight. ROS: Patient endorses epigastric pain that began shortly after eating, nausea, and vomiting. Patient denies fever, chills, night sweats, chest pain, chest palpitations, SOB, pleuritic CP, cough, or changes in urinary or bowel habits. Review of Systems Review of Systems: See HPI above Physical Exam Physical Exam: General: Mild distress secondary to abdominal pain; anxious; non-toxic appearing; frail appearing; cooperative; SpO2 97% on RA HEENT: normocephalic, atraumatic; no scleral icterus; PERRLA w/ EOMs intact; vision and hearing intact Neck: supple; trachea midline Skin: warm, dry without signs of tenting; no cyanosis; no rashes, bruising, lesions, or erythema noted CV: chest wall NTP; RRR; S1/S2 normal; no murmurs/rubs/gallops; pulses intact and symmetric at radial, DP, and PT Lungs: no acute respiratory distress; symmetrical chest wall expansion; clear breath sounds across all lung dodson w/o adventitious sounds; no wheezing ABD: Soft, epigastric region is TTP, and left lower quadrant was also mildly TTP; RUQ NTP; no rashes or bruising appreciated on the abdomen or flanks b/l; BS present; no rebound/guarding; no distention MSK: no tics or fasciculations; no edema noted in the LEs b/l, nonerythematous Neuro: A&Ox3; normal mood and affect; fluent speech; no focal deficits; sensation intact and symmetric in the LEs b/l assessed via light touch Results & Data Results & Data Vital Signs (Past 12 Hours) Vital Signs Temp Pulse Pulse Resp BP Pulse Ox O2 Del Method 01/20/25 07:39 36.9 C 58 L 16 161/94 H 97 Room Air 01/20/25 04:30 36.6 C 68 18 125/80 97 Room Air 01/20/25 00:04 36.9 C 18 106/66 97 Room Air 01/19/25 22:38 58 L PG Care Time/CCT Total # of Minutes Spent Total Time Spent with Patient: Total time spent is greater than 50% in coordination of care (as documented) at patient's floor/unit and/or counseling patient: [place] [address] SUB INP/OBS CARE 3/50MIN Patient Type Established Medical Decision Making High Complexity Diagnoses Intractable nausea and vomiting R11.2 Hypokalemia E87.6
[2025-01-20] MEDS: POTASSIUM CHLORIDE / WTR 10 MEQ/100 ML PLCT IV ONE (10:02)
[2025-01-20] MEDS: FAMOTIDINE 20MG IV PUSH 20 MG/5 ML SYR IV SCH (10:02)
[2025-01-20] MEDS: CAPSAICIN CR 0.075% 60 GM TUBE EXT ONE (10:08)
[2025-01-20] MEDS: ROSUVASTATIN CALCIUM 20 MG TAB PO SCH (10:50)
[2025-01-20] MEDS: ALUMINUM/MAGNESIUM SUSP 30 ML UDC PO STA (14:17)
[2025-01-20] MEDS: COUGH DROP (SUGAR FREE) LOZ 24 LOZ/1 BOX BUCCAL STA (14:20)
[2025-01-20] MEDS: HYDROmorphone INJ 0.5 MG/0.5 ML SYR IV STA (14:20)
[2025-01-20] MEDS: SIMETHICONE 40 MG/0.6 ML 30ML PO PRN (16:53)
[2025-01-20] MEDS ORDERED: POLYETHYLENE (MIRALAX) 17 GM PACK PO PRN (19:12)
[2025-01-21] MEDS ORDERED: ALUMINUM/MAGNESIUM SUSP 30 ML UDC PO PRN (10:40)
[2025-01-21] MEDS: ALUMINUM/MAGNESIUM SUSP 30 ML UDC PO STA (10:58)
--- NOTE | 2025-01-21 11:38 | Hospitalist Progress Note ---
Date of Service January 21, 2025 Assessment & Plan (1) Intractable nausea and vomiting: (2) Hypokalemia: Plan This patient is a 64-year-old female who presented on 01/19 for epigastric pain, and intractable nausea and vomiting. Patient was also in the emergency department on the morning of 01/17 for similar. She has been unable to keep down solids or liquids at home x 3 days. Coming in for IVF and supportive care. #Intractable nausea/vomiting | epigastric pain with eating A/P CT without acute findings; sludge noted in gallbladder Gallbladder ultrasound without evidence of gallstones or acute cholecystitis Suspect viral GI illness v. Peptic ulcer Acetaminophen 1000 mg IV q8h PRN for epigastric pain Famotidine 20 mg IV QAM Protonix 40 mg IV QAM Zofran 4 mg IV q6h PRN - 1st line Compazine 5 mg IV q6h PRN - 2nd line Continue sucralfate 1 g p.o. BID as tolerated Hydroxyzine 25 mg p.o. HS LR at 80mL/hr for IVF maintenance Still not tolerating clear liquid diet on 01/20, reported vomiting after attempting lemon water ice Patient was made n.p.o., but upgraded to heart healthy diet on the morning of 01/21; she immediately had a recurrence of severe epigastric pain and vomiting Strict n.p.o. until symptoms begin to resolve Patient did not tolerate capsaicin cream She declined Dilaudid for epigastric pain She declined menthol lozenge Maalox 15 mg suspension PRN Simethicone 40 mg suspicion PRN Lorazepam 0.5mg IV PRN for anxiety/nausea Repeat lipase in LFTs WNL on 01/21 GI consult appreciated for potential EGD #Hypokalemia Continue repletion with K riders PRN #Elevated troponin Mild; troponin 17.7 -> 19.5 -> 13.5 EKG without acute ischemic changes appreciated Suspect stress demargination in the setting of acute GI illness Continues telemetry monitoring for now #H/o medical marijuana use Patient tested positive for marijuana during ED visit on 01/17 She does have history of medical marijuana card, but reports she has not used it in 2 to 3 months Unclear if cannabinoid hyperemesis syndrome is contributory #Diarrhea (resolved) Noted by patient on evening of Tuesday 01/16 No recurrence, per patient #Bipolar 1 | paranoid schizophrenia Normally on Caplyta, but not tolerated PO intake x several days [employer] Caplyta is non-formulary, and patient reports she does not have anyone who could pick it up to bring it in Reach out to pharmacy; Caplyta is a second gen antipsychotic, and potential alternatives could be risperidone or olanzapine ODT Touch base with psychiatry for recommendation Will plan to put patient on olanzapine 5 mg ODT while inpatient, as this will also assist with her nausea; QTc okay at 457 #HTN Continue clonidine HS Disposition: Continued stay on MedSurg telemetry VTE PPx: Lovenox 40 mg SQ q24h Admission and Anticipated Discharge Date Admission Date: January 20, 2025 Supervising Physician Co-Signing Physician Notes Attending Attestation: Pt seen/examined, chart reviewed, care plan d/w SELIN Lundberg. I agree w/ the tolbert components of his documentation. Saw patient late in the day. She was laying in bed upon my arrival. Ms Velez was very upset about numerous issues including lack of diet/eating, not feeling better (ongoing stomach pain/nausea/vomiting), upset about the nursing staff, feeling like she is being judged, etc. I left her room and brought her bedside nurse into the room so that her nurse could hear the plan of care. The patient asked that we discuss her care in a private area (patient was in a double occupancy room and felt there was no privacy with discussing her care). Again I left the room - this time I went to find the charge nurse and explained the situation to the charge nurse. The charge nurse & I brought Ms Velez to a private room where she could voice her concerns. Ms Velez again reiterated her health concerns, her frustrations with her care, what she wants for her GI complaints ("GI Cocktail"), etc. Explained to Ms Velez that Gastroenterology was consulted for the morning and that we anticipated they probably would recommend EGD. Gave reassurances to Ms Velez that the entire care team -- Mr Lundberg, myself, nursing staff, etc -- were all here to help her feel better. Following our conversation we did the following - 1. ordered GI Cocktail (I spoke to pharmacy and they mixed 1:1:1 viscous lidocaine, maalox, and benadryl) 2. moved her to a private room on 3. GI consult for tomorrow morning Patient voiced satisfaction with the above plan of care. Brief exam - gen - nontoxic, NAD, frustrated/disenchanted/agitated psych - a/o x 3, anxious; not responding to internal stimuli, no hallucinations total time of my bedside visit was nearly 60 minutes Lester Card MD Subjective Mrs. Velez had recurrence of epigastric pain, nausea, and vomiting shortly after eating eggs and toast this morning. She reports she was doing fine until she ate. Immediately after eating, she rates her epigastric pain as a 9 out of 10. Bilious/clear yellow vomit in emesis bag. She reports that the remedies given last night (including Maalox and simethicone), did help to alleviate her nausea/pain. ROS: Patient endorses severe epigastric pain with eating, nausea, and vomiting. Patient denies fever, chills, chest pain, SOB, or hematemesis. Review of Systems Review of Systems: See HPI above Physical Exam Physical Exam: General: Acute distress secondary to epigastric pain; vomiting/dry heaving in the room; anxious; non-toxic appearing; frail appearing; SpO2 97% on RA HEENT: normocephalic, atraumatic; no scleral icterus; PERRLA; vision and hearing intact Neck: supple; trachea midline Skin: warm, dry without signs of tenting; no cyanosis; no rashes, bruising, lesions, or erythema noted CV: chest wall NTP; RRR; S1/S2 normal; no murmurs/rubs/gallops; pulses intact and symmetric at radial, DP, and PT Lungs: no acute respiratory distress; symmetrical chest wall expansion; clear breath sounds across all lung dodson w/o adventitious sounds; no wheezing ABD: Soft, epigastric region is TTP; no rashes or bruising appreciated on the abdomen or flanks b/l; BS present; no rebound/guarding; no distention MSK: no tics or fasciculations; no edema noted in the LEs b/l, nonerythematous Neuro: A&Ox3; normal mood and affect; fluent speech; no focal deficits; sensation intact and symmetric in the LEs b/l assessed via light touch Results & Data Results & Data Vital Signs (Past 12 Hours) Vital Signs Temp Pulse Resp BP BP Pulse Ox O2 Del Method 01/21/25 07:28 36.5 C 60 18 136/81 98 Room Air 01/21/25 02:47 36.5 C 62 16 149/84 H 98 Room Air 01/20/25 23:40 93/60 L PG Care Time/CCT Total # of Minutes Spent Total Time Spent with Patient: Total time spent is greater than 50% in coordination of care (as documented) at patient's floor/unit and/or counseling patient: Prolonged Care Time Prolonged Care Time: Yes Total Prolonged Care Time: 90 [place] [address] SUB INP/OBS CARE 3/50MIN (25 - SIGNIFICANT, SEPARATELY IDENTIFIABLE ) Patient Type Established Medical Decision Making High Complexity Diagnoses Intractable nausea and vomiting R11.2 Hypokalemia E87.6 Additional Codes Prolonged Care Time - Prolonged Care Time: Yes ([id number])
[2025-01-21] MEDS: LACTATED RINGER'S 1,000 ML IV SCH (13:16)
[2025-01-21 13:26] LABS: Alanine Aminotransferase 10.0 U/L (7-52); Alkaline Phosphatase 41.0 U/L (34-104); Bilirubin,Total 0.8 mg/dl (0.2-1.0); Lipase 35.0 U/L (11-82); Total Protein 5.9 gm/dl (6.0-8.3)
[2025-01-21 13:28] LABS: Anion Gap 8.0 (3-11); Blood Urea Nitrogen 14.0 mg/dl (6-23); Calcium 8.8 mg/dl (8.6-10.3); Carbon Dioxide 28.0 mmol/L (21-32); Chloride 98.0 mmol/L (98-107); Creatinine Clr Calc Pharmacy 64.6 ml/min; Glucose 105.0 mg/dl (70-99(Fasting)); Potassium 3.2 mmol/L (3.5-5.1); Sodium 134.0 mmol/L (136-145)
[2025-01-21] MEDS: POTASSIUM CHLORIDE / WTR 10 MEQ/100 ML PLCT IV SCH (15:17)
[2025-01-21] MEDS: ONDANSETRON INJ 2 MG/ML 2 ML VIAL IV ONE (15:30)
[2025-01-21] MEDS ORDERED: SIMETHICONE 80 MG CHEW PO PRN (19:40)
[2025-01-21] MEDS: D5NSS + 20MEQ KCL 20 MEQ/1,000 ML BAG IV SCH (21:32)
[2025-01-21] MEDS: ALUMINUM/MAGNESIUM SUSP 30 ML UDC PO ONE (21:33)
[2025-01-21] MEDS: LIDOCAINE VISCOUS 2% 100ML BOTTLE PO ONE (21:34)
[2025-01-21] MEDS: PANTOprazole 40 MG/10 ML SYR IV SCH (21:38)
[2025-01-21 22:16] VITALS: RESP 18
[2025-01-22] MEDS: ENOXAPARIN INJ 30 MG/0.3 ML SYR SQ ONE (04:46)
[2025-01-22] MEDS: LIDOCAINE VISCOUS 2% 15 ML UDC MT ONE ×2 (08:00→09:10)
[2025-01-22] MEDS: ALUMINUM/MAGNESIUM SUSP 30 ML UDC PO STA (08:00)
[2025-01-22 08:06] LABS: Anion Gap 6.0 (3-11); Blood Urea Nitrogen 12.0 mg/dl (6-23); Calcium 9.5 mg/dl (8.6-10.3); Carbon Dioxide 32.0 mmol/L (21-32); Chloride 97.0 mmol/L (98-107); Creatinine Clr Calc Pharmacy 58.4 ml/min; Glucose 122.0 mg/dl (70-99(Fasting)); Magnesium 1.8 mg/dl (1.7-2.4); Potassium 3.7 mmol/L (3.5-5.1); Sodium 135.0 mmol/L (136-145)
[2025-01-22 08:11] VITALS: BP 144/76; PULSE 82; TEMP 97.7; O2SAT 99
[2025-01-22] MEDS: FAMOTIDINE 20 MG TAB PO SCH (08:55)
[2025-01-22] MEDS: ALUMINUM/MAGNESIUM/SIMETH (MAALOX MAX) 30 ML UDC PO ONE (09:10)
--- NOTE | 2025-01-22 10:50 | Gastrointestinal Consultation ---
Date of Consultation January 22, 2025 Assessment & Plan (1) Nausea and vomiting: Patient reports resolution of her symptoms She did eat breakfast this morning She notes that she would like to have an EGD as an outpatient as she only wants to have an EGD with Dr. Kincaid. Our office will arrange this. I will also have them look into when patient is rescheduled for her colonoscopy. Continue Protonix 40 mg BID. Continue Famotidine 20 mg daily; can increase to BID if needed. Supervising Physician Co-Signing Physician Notes agree with history and plan as outlined, patient refuses to see provider other than DR Kincaid History of Present Illness Reason for Consultation: ?peptic ulcer vs gastritis; EGD Attending Physician: Lester Card MD History of Present Illness Patient is a 64 yo female with PMH of paranoid schizophrenia, anxiety, depression, bipolar 1, seizure disorder, marijuana use, & pulmonary emphysema who presented to the ED on 01/19 due to epigastric pain, nausea, and vomiting that had been ongoing since 01/16/25. She was vomiting a bile like substance and was unable to take her meds for 3 days. She developed epigastric pain and diarrhea. She takes Prilosec at home (40 mg daily), but this wasn't helping her. No marijuana use for 2-3 months. LFTs unremarkable. GB US negative. CT abdomen/pelvis unremarkable. GI was consulted to consider an EGD, however patient did eat breakfast this morning and she notes resolution of her symptoms at this time. She also notes that she does not want any city auditor other than Dr. Kincaid performing her EGD so she would prefer to do any GI testing as an outpatient. She does note weight loss to me. She is unsure how much, but visibly she does look smaller than the last time I had seen her several years ago. Upon further review, it does appear that since the last time she was seen in our office in 2020 she has had an 18 kg weight loss. Last EGD in 2019 unremarkable. Last colonoscopy in 2019 with adenomatous polyps and she was advised to have a repeat in 5 years. It does appear she was scheduled in November 2024 but did not move forward with this. Allergies Allergy/AdvReac Type Severity Reaction Status Date / Time doxycycline Allergy Mild Diarrhea Verified 01/08/25 08:52 latex Allergy Mild RASH Verified 01/08/25 08:52 montelukast Allergy Mild Palpitation Verified 01/08/25 08:52 s hydrocodone [From [place]] Allergy Unknown headache Verified 01/08/25 08:52 Home Medications Medication Instructions Recorded Confirmed Type albuterol sulfate 2.5 mg/3 mL 1.25 mg (1.5 mL) continuous 04/29/22 01/19/25 Rx (0.083 %) solution for nebulization nebulization Q4H PRN shortness of breath or wheezing #75 mL mupirocin 2 % topical ointment 1 applic topical BID #15 grams 12/06/24 01/19/25 Rx rosuvastatin 40 mg tablet 40 mg PO DAILY #90 tabs 12/06/24 01/19/25 Rx albuterol sulfate 90 mcg/actuation 1 inh inhalation QID PRN shortness 12/18/24 01/19/25 Rx aerosol inhaler (Ventolin HFA) of breath or wheezing #8.5 grams tylenol 500 mg PO DIRECTED PRN Pain 01/08/25 01/19/25 History clonidine HCl 0.2 mg tablet 0.2 mg PO HS 01/19/25 01/19/25 History lumateperone 42 mg capsule 42 mg PO DAILY 01/19/25 01/19/25 History (Caplyta) rizatriptan 5 mg disintegrating 5 mg PO DIRECTED PRN Headache 01/19/25 01/19/25 History tablet Magic Mouthwash 300 mL mouthwash 5 ml mucous membrane BID PRN 01/22/25 Rx stomach upset #100 mL famotidine 20 mg tablet 20 mg PO QAM #30 tabs 01/22/25 Rx ondansetron 4 mg disintegrating 4 mg PO Q8H PRN nausea and 01/22/25 Rx tablet vomiting #10 tabs pantoprazole 40 mg tablet,delayed 40 mg PO BID #60 tabs 01/22/25 Rx release Patient History Medical History Atrophic vulvovaginitis Vulvar intraepithelial neoplasia (ORA) grade 3 Chronic neck pain Tremor Olfactory hallucinations Hypersensitivity pneumonitis Vitamin B12 deficiency Multiple pulmonary nodules 7mm RLL - stable [id number] 4mm LLL Chronic constipation Surgical History Nausea and vomiting after administration of anesthetic agent History of dilation and curettage History of total hysterectomy with bilateral salpingo-oophorectomy (BSO) Status post trigger finger release left History of colonoscopy with polypectomy History of tooth extraction Status post colposcopy 11/21/18 S/P tooth extraction Family History Father Alcohol abuse Renal failure Mother Hypertension Aunt Breast cancer Unknown Hyperlipidemia Grandmother (Maternal) Family history of diabetes mellitus Uncle Family history of diabetes mellitus Family/Other Stroke Asthma Other Dyslipidemia No family history of adverse response to anesthesia No family history of bleeding disorder Social History Smoking Status: Former smoker Tobacco Type: Cigarettes Age Started Using Tobacco: 23; packs per day: 1; Second Hand Exposure: No (COMMENT); Do You Dip or Chew Tobacco: No; Hx Alcohol Use: No Hx Substance Use: No Preferred Language: Macanese Communication Ability: Effective 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 Beliefs That Will Affect Care: None marital status: Single Current Living Situation: Alone Feels Safe at Home: Yes Seatbelt Use: always Assistive Devices: Glasses Review of Systems Constitutional: no fever and no chills Cardiovascular: no chest pain Gastrointestinal: no abdominal pain, no nausea and no vomiting GI symptoms improved Physical Exam Constitutional: well developed Respiratory: normal respiratory effort Cardiovascular: Rate/Rhythm: regular rate Gastrointestinal (Abdomen): normal bowel sounds, soft, nontender, no hepatosplenomegaly Psychiatric: Orientation: alert and oriented x 3 Results & Data Vital Signs (Past 12 Hours) Vital Signs Temp Pulse Resp BP Pulse Ox O2 Del Method 01/22/25 08:10 36.5 C 82 18 144/76 H 99 Room Air PG Care Time/CCT Total # of Minutes Spent Total Time Spent with Patient: Total time spent is greater than 50% in coordination of care (as documented) at patient's floor/unit and/or counseling patient: Coding Level of Care Code 07762 INT INP/OBS CARE 3/75MIN Diagnoses Nausea and vomiting R11.2
--- NOTE | 2025-01-22 12:26 | Discharge Summary ---
Discharge Summary Date of Service date of admission - January 19, 2025 date of discharge - January 22, 2025 Principal Dx & Hospital Course #1 = Principal Diagnosis (1) Intractable nausea and vomiting: (2) Abdominal pain: (3) Elevated troponin: (4) Hypokalemia: (5) Tobacco dependence: Plan 64yo female who presented with epigastric pain, intractable nausea, and vomiting. Patient was also in the emergency department on the morning of 01/17 for similar. She had been unable to keep down solids or liquids at home x 3 days. #Intractable nausea/vomiting | epigastric pain with eating - -CT abd/pelvis without acute findings; some sludge noted in gallbladder -Gallbladder ultrasound without evidence of gallstones or acute cholecystitis findings -LFTs and lipase on multiple checks were negative/normal -Suspect viral GI illness vs Peptic ulcer vs gastritis/esophagitis vs other vs combination of factors -symptoms treated with Famotidine 20 mg IV QAM, Protonix 40 mg IV QAM, Zofran 4 mg IV q6h PRN, Compazine 5 mg IV q6h PRN, sucralfate 1 g p.o. BID -even up until 01/21 she was poorly tolerating any PO intake -01/21 she requested a "GI Cocktail" and symptoms significantly improved with such -01/22 AM she requested the GI Cocktail once again; symptoms once more also improved -01/22 AM - seen by [facility] - patient wished to have EGD as outpatient -01/22 AM - tolerated regular diet without any nausea/emesis/abdominal pain -at discharge advised the following - -protonix 40mg PO BID -pepcid 20mg PO daily -magic mouthwash (which is similar in composition to GI Cocktail) prn (for short-term use only) -f/u with [facility] for consideration of EGD #Hypokalemia - -low of K at 3.1 -repleted/normalized #Elevated troponin - -minimal; peak troponin 19.5 -EKG without acute ischemic changes -likely myocardial demand ischemia in the setting of his GI symptoms/illness #H/o medical marijuana use #Diarrhea - -noted by patient on evening of Tuesday 01/16 -No recurrence #Bipolar 1 | paranoid schizophrenia - -normally on Caplyta; this is a non-formulary medicine at [facility], and patient reported she did not have anyone who could pick it up to bring it in to the hospital -used olanzapine ODT in blank of Caplyta while here -Behavioral health liaison was consulted during her stay; they confirmed she had follow-up with [facility] a few days post-discharge -upon transition home she will resume her usual medicines (Caplyta, etc) -it was not felt that patient needed inpatient psych treatment #HTN - Continue clonidine HS Notes For Next Care Provider f/u with [facility] for EGD Medication Changes From Visit Protonix 40mg BID Pepcid 20mg daily Admission HPI Per Admitting Provider Mrs. Velez is a 64-year-old female with PMH of paranoid schizophrenia, anxiety, depression, bipolar 1 disorder, seizure disorder, marijuana use, and pulmonary emphysema. She presented on 01/19 for epigastric pain, nausea, vomiting, and chills that woke her from sleep on Wednesday night 01/16. Patient came into the emergency department for workup, but was ultimately sent home. Since that time, she has been unable to keep down any food or liquids since Wednesday. Even when she attempts to drink liquids, she throws it up as "green bile". She has not had any of her regular medications over the past 3 days as she is unable to tolerate pills. Initially, patient thought that she might of had an episode of food poisoning, as she was having epigastric pain and diarrhea on Wednesday. At that admission, she is still having epigastric pain that she rates a 5 out of 10. Patient has been taking Tylenol and Prilosec at home, but this has not been helping her symptoms. Patient reports no prior similar episodes as bad as this. No recent change in diet. However, she reports she had a bowl of cereal on Wednesday, and is unsure if maybe she drank some bad milk. She has no official food allergies, but has never been tested for things like lactose or gluten intolerance. No sick contacts to her knowledge. Patient lives by herself. She reports she does have a medical marijuana card, but quit using marijuana 2 to 3 months ago. She denies any recent alcohol or tobacco use. Additionally, she reports that after having diarrhea on Wednesday, she has not had a bowel movement since. Patient is hypertensive at 159/96 at time of admission; vitals otherwise stable. ED course: NSS 500 mL IV Zofran 4 mg IV Acetaminophen 1000 mg IV Famotidine 20 mg IV Protonix 40 mg IV Reglan 5 mg IV Promethazine 12.5 mg IV K rider 10 mEq IV x 1 ROS: Patient endorses fever at home, chills, lightheadedness when standing, epigastric pain, chest palpitations, and intractable nausea/vomiting. Patient denies night sweats, headache, chest pain, SOB, pleuritic CP, cough, diarrhea (resolved), hematuria, burning with urination, blood in the urine or stool, or numbness and tingling in the extremities Discharge Exam gen - NAD, looks well today mouth - MMM neck - no JVD heart - RRR, s1 s2, no murmur lungs - CTA b/l abd - soft NT ND BS+; no HSM ext - no edema, pulses 2+ b/l psych - a/o x 3, no hallucinations Discharge Plan Discharge Items Patient Disposition: Home - Self-Care Reason For Visit: INTRACTABLE NAUSEA/VOMITING/STOMACH UPSET Discharge Diagnosis: 1. Nausea/vomiting/stomach upset/stomach pain - resolved -due to gastritis? due to esophagitis? due to ulcer? -upper endoscopy ("EGD") needed by gastroenterology 2. Minimal amount of gall bladder sludge in gall bladder but no gallstones; gall bladder appeared healthy on ultrasound and CT scan 3. Low potassium - resolved Activity: Resume your previous activity Non-emergency contact: Primary Care Provider and Telephone Appointment Clerk Call non-emergency contact if: you have any medication questions, your symptoms worsen, your pain is not controlled and your pain is worsening Follow-up/Referrals: [facility] [Outside] Marco Kincaid DO [Physician] - (you will need upper endoscopy in near-future; [facility] will arrange this for you and contact you with details ) Pete Self DO [Primary Care Provider] - 01/29/25 2:30 pm () Diet: Regular Diet Comment: soft/bland for at least 10 days (see handout) Addtl Attending Provider Instructions: Ms Velez, You were hospitalized due to severe nausea, vomiting, abdominal pain, and 1 episode of diarrhea at home. CT scan of your abdomen did not show a specific reason for your symptoms. Ultrasound of your gall bladder showed a healthy-appearing gall bladder; it did not appear sick. Your liver function tests and pancreas blood test were all normal. We did not find any specific infections while you were here. Although it took several days eventually your symptoms improved with multiple acid reducers including a "GI cocktail." This would suggest your symptoms were coming from your stomach (less likely the esophagus or bowels). Gastroenterology saw you in consult. They would like for you to have an upper endoscopy ("EGD") in the near-future. This test will look directly at your esophagus, stomach, and duodenum (part of the bowel). Recommendations - 1. increase your pantoprazole to 40mg twice daily. 2. may take [id number] famotidine (pepcid) 20mg once daily. You can increase to twice daily as needed for stomach upset/pain/reflux. 3. for nausea you can take ondansetron 4mg every 8 hours as needed. 4. "magic mouthwash" - this contains the same ingredients we used in the "GI Cocktail" at [facility] for your stomach. This magic mouthwash can be swallowed. If you elect to use this when your symptoms are severe be sure to NOT eat or drink for at least 1-2 hours as the lidocaine in the mixture can make your mouth/tongue/throat numb. Take 5ml twice daily as needed for stomach upset/heartburn (again only use if symptoms are severe) - swish and swallow. 5. follow a bland diet - see handout - for about 10 days. This will allow your stomach to heal quicker. 6. avoid use of anti-inflammatory pills. This includes aspirin, motrin, ibuprofen, naprosyn, aleve. Tylenol is ok to take for aches/pains - Tylenol does not cause stomach irritation. 7. avoid alcohol if you drink such; alcohol irritates the stomach. Follow-up - see separate section Return to [facility] if - * you have recurrent, severe abdominal pain * you have persistent nausea/vomiting despite taking all of the prescribed medications for your stomach * you have inability to eat/drink * you are concerned about dehydration * any other concerns It was our pleasure caring for you at [facility]! Pending Studies at Discharge: No Stand-Alone Forms: My [facility] [place] NullPointer, Smoking Cessation Medications and DC Order Prescriptions: New Magic Mouthwash 300 mL mouthwash 5 ml mucous membrane BID PRN (Reason: stomach upset) Qty: 100 0RF Rx Instructions: Benadryl 12.5 mg/5 mL oral elixir; Maalox 200 mg-200 mg-20 mg/5 mL oral suspension; Xylocaine Viscous 2 % mucosal solution;[Generic substitution ok] 1:1:1 compound Per 300 mL. Do not eat or drink for at least 1-2 hours after taking this medicine as the lidocaine may make your mouth/throat numb. Continued mupirocin 2 % ointment 1 applic topical BID Qty: 15 0RF rosuvastatin 40 mg tablet 40 mg PO DAILY Qty: 90 3RF albuterol sulfate [Ventolin HFA] 90 mcg/actuation HFA aerosol inhaler 1 inh inhalation QID PRN (Reason: shortness of breath or wheezing) Qty: 8.5 0RF albuterol sulfate 2.5 mg /3 mL (0.083 %) solution for nebulization 1.25 mg continuous nebulization Q4H PRN (Reason: shortness of breath or wheezing) Qty: 75 1RF tylenol 500 mg PO DIRECTED PRN (Reason: Pain) Patient Comments: OTC rizatriptan 5 mg tablet,disintegrating 5 mg PO DIRECTED PRN (Reason: Headache) Rx Instructions: take 1 tablet at onset of headache; if no relief, may repeat 1 tablet after at least 2 hrs PO Changed pantoprazole 40 mg tablet,delayed release (DR/EC) 40 mg PO BID Qty: 60 2RF Rx Instructions: for acid reduction/stomach Discontinued sucralfate [Carafate] 1 gram tablet 1 g PO BID Qty: 14 0RF No Action famotidine 20 mg tablet 20 mg PO UD Rx Instructions: purchase [id number]; take once daily; may increase to twice daily if needed for stomach upset/reflux/heartburn symptoms Discharge Orders: Discharge Order (Routine); Ordered 01/22/25 Ordered By: Lester Schrader/Other Patient Handouts: Understanding Gastritis, Soft Theodore Diet Dc Admission Data Admit Date/Time: 01/19/25 13:21 Attending Provider: Lester Card Admit Provider: Lester Card Primary Care Provider: Pete Self Other Providers: Lester Card; Bryce Martin Jr; Scot Joseph Other Interventions: Discharge Summary Assessment (RN) Last Done: 01/22/25 13:15 Hospital Stay Data Consultations [facility] Liaison Diagnostic Imagining Performed Abdomen/Pelvis CT 01/19/25 07:[address] WITH IV CONTRAST CT DOSE: 387.64 mGy.cm HISTORY: abdominal pain, N/V, no BM - eval obstruction TECHNIQUE: Multiaxial CT images of the abdomen and pelvis were performed following the IV administration of 90 cc of Optiray, A dose lowering technique was utilized adhering to the principles of ALARA. COMPARISON STUDY: 10/23/2021 FINDINGS: ABDOMEN: There is gallbladder sludge without evidence of acute cholecystitis. Liver, spleen, pancreas, and adrenal glands are unremarkable. Kidneys show no hydronephrosis. There is contrast in the renal collecting systems which limits evaluation for calculi. No abdominal aortic aneurysm. Pelvis: Urinary bladder is mildly distended. Uterus is either absent or extremely diminutive. No adnexal mass seen. There is mild retained stool. No bowel inflammation or obstruction. No free fluid, free air, or abscess. No enlarged adenopathy. Osseous structures: No acute osseous findings. IMPRESSION: No acute findings. ACT 112: Negative or not required by law. The above report was generated using voice recognition software. It may contain grammatical, syntax or spelling errors. Electronically signed by: Elio Gamboa M.D. 01/19/2025 9:19 AM Chest X-Ray 01/19/25 07:22 EXAM: XR chest 1V portable CLINICAL HISTORY: Upper abdominal pain. TECHNIQUE: X-ray image of the chest obtained in AP projection. COMPARISON: X-ray dated 01/17/2025. FINDINGS: Pulmonary Parenchyma: Stable hyperinflated bilateral lungs. New finding of mild blunting of bilateral CP angles likely pleural thickening vs small effusion. No evidence of consolidation, collapse, or focal opacities. No pulmonary nodules identified. Heart and Mediastinum: Heart size and shape are normal. No mediastinal widening or masses. No hilar or mediastinal lymphadenopathy. Bony Thorax: Spondylotic changes in thoracic spine. Bony thorax appears intact without fractures or deformities. Soft Tissues: Soft tissues overlying the chest wall are unremarkable. IMPRESSION: 1. No acute cardiopulmonary abnormalities identified. 2. Stable hyperinflated bilateral lungs likely COPD. 3. New finding of mild blunting of bilateral CP angles likely pleural thickening vs small effusion. Electronically signed by Jean-Pierre Carranza 01-19-2025 09:09 AM Gallbladder Ultrasound 01/19/25 09:30 US gallbladder CLINICAL HISTORY: RUQ pain, N/V COMPARISON STUDY: 01/09/[address] scan earlier today FINDINGS: Pancreas is obscured by bowel gas. Liver is unremarkable measuring approximately 15 cm. Gallbladder is unremarkable with no gallstones or gallbladder wall thickening. No pericholecystic fluid or ascites. Common bile duct measures normal diameter of 4 mm. Right kidney shows no hydronephrosis. IMPRESSION: No gallstones or evidence of acute cholecystitis seen. ACT 112: Negative or not required by law. Electronically signed by: Elio Gamboa M.D. 01/19/2025 10:55 AM Pending Results Patient Have Any Pending Studies at Discharge: No Discharge Instructions Given to Patient (Per Discharging Provider) Ms Velez, You were hospitalized due to severe nausea, vomiting, abdominal pain, and 1 episode of diarrhea at home. CT scan of your abdomen did not show a specific reason for your symptoms. Ultrasound of your gall bladder showed a healthy-appearing gall bladder; it did not appear sick. Your liver function tests and pancreas blood test were all normal. We did not find any specific infections while you were here. Although it took several days eventually your symptoms improved with multiple acid reducers including a "GI cocktail." This would suggest your symptoms were coming from your stomach (less likely the esophagus or bowels). Gastroenterology saw you in consult. They would like for you to have an upper endoscopy ("EGD") in the near-future. This test will look directly at your esophagus, stomach, and duodenum (part of the bowel). Recommendations - 1. increase your pantoprazole to 40mg twice daily. 2. may take [id number] famotidine (pepcid) 20mg once daily. You can increase to twice daily as needed for stomach upset/pain/reflux. 3. for nausea you can take ondansetron 4mg every 8 hours as needed. 4. "magic mouthwash" - this contains the same ingredients we used in the "GI Cocktail" at [facility] for your stomach. This magic mouthwash can be swallowed. If you elect to use this when your symptoms are severe be sure to NOT eat or drink for at least 1-2 hours as the lidocaine in the mixture can make your mouth/tongue/throat numb. Take 5ml twice daily as needed for stomach upset/heartburn (again only use if symptoms are severe) - swish and swallow. 5. follow a bland diet - see handout - for about 10 days. This will allow your stomach to heal quicker. 6. avoid use of anti-inflammatory pills. This includes aspirin, motrin, ibuprofen, naprosyn, aleve. Tylenol is ok to take for aches/pains - Tylenol does not cause stomach irritation. 7. avoid alcohol if you drink such; alcohol irritates the stomach. Follow-up - see separate section Return to [facility] if - * you have recurrent, severe abdominal pain * you have persistent nausea/vomiting despite taking all of the prescribed medications for your stomach * you have inability to eat/drink * you are concerned about dehydration * any other concerns It was our pleasure caring for you at [facility]! Total Time Total Time Spent Total Time Spent (In Minutes): 40 Coding Level of Care Code 54844 INP/OBS DISCH >30 MIN Diagnoses Intractable nausea and vomiting R11.2 Abdominal pain R10.84 Abdominal location: generalized Elevated troponin R79.89 Hypokalemia E87.6 Tobacco dependence F17.200
== END 2025-01-22 13:43 | disposition home or self-care (01) | DRG 392 ==
LOC: ED 06:40 → 2W 06:40